=== PATIENT | female | born 1950 | race Caucasian/White ===

== ENCOUNTER 2016-02-24 14:04 | Emergency (ER) | payer MEDICARE, OTHER ==
[2015-10-19 15:05] VITALS: BMI 24.8
[~2016-02-24 14:04] MED LIST: ALBUTEROL2.5 MG/3 M UPD; ASPIRIN81 MG PO; BREO ELLIPTA 11 EACH INH; COREG6.25 MG PO; CRESTOR10 MG PO; FLAGYL500 MG PO; IPRAT-ALBUT 0.5-3 ML UPD; K-DUR20 MEQ PO; KEPPRA250 MG PO; LASIX40 MG PO; MARINOL2.5 MG PO; NICODERM C1 PATCH .3 TRANSDERM; NITROQUICK0.4 MG SL; PAXIL30 MG PO; PLAVIX75 MG PO; PROTONIX I40 MG/VIAL IV; PROTONIX40 MG PO; PROZAC10 MG PO; ULTRAM50 MG PO; XANAX1 MG PO; ZYPREXA5 MG PO
[2016-02-24 14:54] LABS: BASOPHILS 0.3 % (0.0-2.0); EOSINOPHILS 5.2 % (0-7); HEMATOCRIT 39.9 % (36.0-48.0); HEMOGLOBIN 13.2 g/dL (12-16); IMMATURE GRANULOCYTES 0.3 % (0-5); LYMPHOCYTES 17.7 % (15-50); MCH 37.2 pg (26.0-34.0); MCHC 33.1 g/dL (31.0-37.0); MCV 112.4 fL (80.0-100.0); MEAN PLATELET VOLUME 9.6 fL (7.4-10.4); MONOCYTES 8.4 % (2-11); NEUTROPHILS 68.1 % (40-80); PLATELET COUNT 159 10x3/uL (130-400); RBC 3.55 10x6/uL (4.00-5.40); RDW 14.9 % (11.5-14.5); WBC 7.4 10x3/uL (4.8-10.8)
[2016-02-24 15:06] LABS: APPEARANCE CLEAR (CLEAR); BILIRUBIN NEGATIVE (NEGATIVE); COLOR STRAW (YELLOW); GLUCOSE NEGATIVE (NEGATIVE); KETONE NEGATIVE (NEGATIVE); LEUKOCYTE ESTERASE NEGATIVE (NEGATIVE); NITRITE NEGATIVE (NEGATIVE); PROTEIN NEGATIVE (NEGATIVE); UROBILINOGEN NORMAL (NORMAL)
[2016-02-24 15:35] LABS: ALKALINE PHOSPHATASE 101 U/L (46-116); ALT (SGPT) 49 U/L (10-68); BILIRUBIN - TOTAL 0.15 mg/dL (0.2-1.3); CALC OSMOLALITY 288 mosm/kg (275-300); CALCIUM 8.4 mg/dL (8.5-10.1); CARBON DIOXIDE 25.5 mmol/L (21.0-32.0); CHLORIDE - SERUM 112 mmol/L (98-107); CREATININE - SERUM 0.7 mg/dL (0.6-1.3); GLUCOSE 82 mg/dL (74-106); POTASSIUM - SERUM 4.1 mmol/L (3.5-5.1); PROTEIN - SERUM 5.8 g/dL (6.4-8.2); SODIUM 146 mmol/L (136-145); UREA NITROGEN 10 mg/dL (7-18); eGFR NON AFRICAN AMERICAN 89 mL/min (90-120)
[2016-02-24 15:39] LABS: UDS - AMPHET NEGATIVE QUAL (NEGATIVE); UDS - BARB NEGATIVE QUAL (NEGATIVE); UDS - BENZO POSITIVE QUAL (NEGATIVE); UDS - COCAINE NEGATIVE QUAL (NEGATIVE); UDS - METH NEGATIVE QUAL (NEGATIVE); UDS - OPIATE NEGATIVE QUAL (NEGATIVE); UDS - PCP NEGATIVE QUAL (NEGATIVE); UDS - THC POSITIVE QUAL (NEGATIVE)
[2016-02-24 15:45] LABS: CREATINE KINASE 143 UL (21-215); MAGNESIUM - SERUM 2.1 mg/dL (1.8-2.4); PRO BNP 137 pg/mL (0-125)
[2016-02-24 15:46] LABS: TROPONIN-I < 0.017 ng/mL (0.000-0.060)
== END 2016-02-24 17:34 | disposition home or self-care (01) ==
LOC: D.ER 14:04
PROVIDERS: Emergency Medicine; Nurse Practitioner Family
DX: F33.9 Major depressive disorder, recurrent, unspecified (principal); F10.10 Alcohol abuse, uncomplicated; F41.9 Anxiety disorder, unspecified; R53.1 Weakness; F03.90 Unspecified dementia, unspecified severity, without behavioral disturbance, psychotic disturbance, mood disturbance, and anxiety; C56.9 Malignant neoplasm of unspecified ovary; I45.10 Unspecified right bundle-branch block; I44.60 Unspecified fascicular block

== ENCOUNTER 2016-05-02 19:46 | Emergency (ER) | payer MEDICARE, OTHER ==
[2015-10-19 15:05] VITALS: BMI 24.8
[2016-05-02 21:11] LABS: ALBUMIN 3.5 g/dL (3.4-5.0); ALKALINE PHOSPHATASE 191 U/L (46-116); ALT (SGPT) 50 U/L (10-68); AMYLASE - SERUM 17 U/L (25-115); BILIRUBIN - TOTAL 0.28 mg/dL (0.2-1.3); CALC OSMOLALITY 278 mosm/kg (275-300); CALCIUM 8.7 mg/dL (8.5-10.1); CARBON DIOXIDE 22.7 mmol/L (21.0-32.0); CHLORIDE - SERUM 102 mmol/L (98-107); CREATININE - SERUM 0.7 mg/dL (0.6-1.3); GLUCOSE 99 mg/dL (74-106); LIPASE 61 U/L (73-393); POTASSIUM - SERUM 3.7 mmol/L (3.5-5.1); SODIUM 141 mmol/L (136-145); UREA NITROGEN 7 mg/dL (7-18); eGFR NON AFRICAN AMERICAN 89 mL/min (90-120)
[2016-05-02 21:34] LABS: APPEARANCE SLT CLOUDY (CLEAR); BILIRUBIN NEGATIVE (NEGATIVE); COLOR STRAW (YELLOW); GLUCOSE NEGATIVE (NEGATIVE); KETONE NEGATIVE (NEGATIVE); LEUKOCYTE ESTERASE 2+ (NEGATIVE); NITRITE NEGATIVE (NEGATIVE); PROTEIN NEGATIVE (NEGATIVE); UROBILINOGEN NORMAL (NORMAL)
[2016-05-02 21:35] LABS: AMORPHOUS SEDIMENT <1+ /lpf (NONE SEEN); BACTERIA MODERATE /hpf (NONE SEEN); EPITHELIAL CELLS 0-5 /hpf (0-5); MUCUS <1+ /lpf (NONE SEEN); RED CELLS - URINE 0-5 /hpf (0-5)
[2016-05-02 21:37] LABS: UDS - AMPHET NEGATIVE QUAL (NEGATIVE); UDS - BARB NEGATIVE QUAL (NEGATIVE); UDS - BENZO NEGATIVE QUAL (NEGATIVE); UDS - COCAINE NEGATIVE QUAL (NEGATIVE); UDS - METH NEGATIVE QUAL (NEGATIVE); UDS - OPIATE NEGATIVE QUAL (NEGATIVE); UDS - PCP NEGATIVE QUAL (NEGATIVE); UDS - THC POSITIVE QUAL (NEGATIVE)
[2016-05-02 22:12] LABS: BASOPHILS 0.6 % (0.0-2.0); EOSINOPHILS 4.3 % (0-7); HEMATOCRIT 48.8 % (36.0-48.0); HEMOGLOBIN 16.7 g/dL (12-16); IMMATURE GRANULOCYTES 0.1 % (0-5); LYMPHOCYTES 22.1 % (15-50); MCH 37.1 pg (26.0-34.0); MCHC 34.2 g/dL (31.0-37.0); MCV 108.4 fL (80.0-100.0); MEAN PLATELET VOLUME 10.1 fL (7.4-10.4); MONOCYTES 9.4 % (2-11); NEUTROPHILS 63.5 % (40-80); PLATELET COUNT 187 10x3/uL (130-400); RDW 13.7 % (11.5-14.5); WBC 6.7 10x3/uL (4.8-10.8)
== END 2016-05-02 23:38 | disposition home or self-care (01) ==
LOC: D.ER 19:46
PROVIDERS: Family Medicine
DX: N39.0 Urinary tract infection, site not specified (principal); K59.00 Constipation, unspecified; F03.90 Unspecified dementia, unspecified severity, without behavioral disturbance, psychotic disturbance, mood disturbance, and anxiety

== ENCOUNTER 2016-05-26 17:50 | Emergency (ER) | payer MEDICARE, OTHER ==
[2015-10-19 15:05] VITALS: BMI 24.8
[2016-05-26 21:36] LABS: BASOPHILS 0.6 % (0.0-2.0); EOSINOPHILS 4.8 % (0-7); HEMATOCRIT 48.4 % (36.0-48.0); HEMOGLOBIN 16.6 g/dL (12-16); IMMATURE GRANULOCYTES 0.4 % (0-5); LYMPHOCYTES 15.2 % (15-50); MCH 36.9 pg (26.0-34.0); MCHC 34.3 g/dL (31.0-37.0); MCV 107.6 fL (80.0-100.0); MEAN PLATELET VOLUME 10.7 fL (7.4-10.4); MONOCYTES 9.2 % (2-11); NEUTROPHILS 69.8 % (40-80); RDW 13.9 % (11.5-14.5); WBC 6.9 10x3/uL (4.8-10.8)
[2016-05-26 21:37] LABS: PLATELET COUNT 124 10x3/uL (130-400)
[2016-05-26 21:45] LABS: APPEARANCE CLOUDY (CLEAR); BILIRUBIN NEGATIVE (NEGATIVE); COLOR YELLOW (YELLOW); GLUCOSE NEGATIVE (NEGATIVE); KETONE NEGATIVE (NEGATIVE); LEUKOCYTE ESTERASE 1+ (NEGATIVE); NITRITE NEGATIVE (NEGATIVE); PROTEIN NEGATIVE (NEGATIVE); UROBILINOGEN NORMAL (NORMAL)
[2016-05-26 21:47] LABS: ALBUMIN 3.5 g/dL (3.4-5.0); ALKALINE PHOSPHATASE 105 U/L (46-116); ALT (SGPT) 27 U/L (10-68); BILIRUBIN - TOTAL 0.43 mg/dL (0.2-1.3); CALC OSMOLALITY 274 mosm/kg (275-300); CALCIUM 9.8 mg/dL (8.5-10.1); CARBON DIOXIDE 26.6 mmol/L (21.0-32.0); CHLORIDE - SERUM 99 mmol/L (98-107); CREATININE - SERUM 0.8 mg/dL (0.6-1.3); GLUCOSE 103 mg/dL (74-106); LIPASE 139 U/L (73-393); POTASSIUM - SERUM 3.7 mmol/L (3.5-5.1); PROTEIN - SERUM 7.3 g/dL (6.4-8.2); SODIUM 138 mmol/L (136-145); UREA NITROGEN 9 mg/dL (7-18); eGFR NON AFRICAN AMERICAN 76 mL/min (90-120)
[2016-05-26 21:47] LABS: BACTERIA MODERATE /hpf (NONE SEEN); EPITHELIAL CELLS 25-50 /hpf (0-5); MUCUS >1+ /lpf (NONE SEEN); RED CELLS - URINE 0-5 /hpf (0-5); WHITE CELLS - URINE >50 /hpf (0-5)
== END 2016-05-26 22:30 | disposition home or self-care (01) ==
LOC: D.ER 17:50
PROVIDERS: Physician Assistant
DX: R10.9 Unspecified abdominal pain (principal); R11.10 Vomiting, unspecified; Z95.1 Presence of aortocoronary bypass graft; R19.7 Diarrhea, unspecified

== ENCOUNTER → 2016-06-30 13:49 | Outpatient (CLI) | payer MEDICARE, OTHER ==
[2015-10-19 15:05] VITALS: BMI 24.8
== END | disposition home or self-care (01) ==
LOC: D.CT 13:49
DX: R10.84 Generalized abdominal pain (principal)

== ENCOUNTER → 2016-07-28 12:52 | Outpatient (CLI) | payer MEDICARE, OTHER ==
[2015-10-19 15:05] VITALS: BMI 24.8
== END | disposition home or self-care (01) ==
LOC: D.CT 12:52
DX: R91.1 Solitary pulmonary nodule (principal)

== ENCOUNTER 2016-09-01 19:24 | Inpatient (IN) | payer MEDICARE, OTHER ==
[2016-09-01 20:11] LABS: APPEARANCE CLEAR (CLEAR); COLOR STRAW (YELLOW); SPECIFIC GRAVITY 1.005 (1.005-1.020)
[2016-09-01 20:12] LABS: BACTERIA FEW /hpf (NONE SEEN); BILIRUBIN NEGATIVE (NEGATIVE); EPITHELIAL CELLS 0-5 /hpf (0-5); GLUCOSE NEGATIVE (NEGATIVE); KETONE NEGATIVE (NEGATIVE); LEUKOCYTE ESTERASE TRACE (NEGATIVE); NITRITE NEGATIVE (NEGATIVE); PROTEIN NEGATIVE (NEGATIVE); RED CELLS - URINE OCC /hpf (0-5); UDS - AMPHET NEGATIVE QUAL (NEGATIVE); UDS - BARB NEGATIVE QUAL (NEGATIVE); UDS - BENZO NEGATIVE QUAL (NEGATIVE); UDS - COCAINE NEGATIVE QUAL (NEGATIVE); UDS - METH NEGATIVE QUAL (NEGATIVE); UDS - OPIATE NEGATIVE QUAL (NEGATIVE); UDS - PCP NEGATIVE QUAL (NEGATIVE); UDS - THC POSITIVE QUAL (NEGATIVE); UROBILINOGEN NORMAL (NORMAL); WHITE CELLS - URINE 0-5 /hpf (0-5)
[2016-09-01 20:14] LABS: MAGNESIUM - SERUM 1.5 mg/dL (1.8-2.4)
[2016-09-01 20:28] LABS: BASOPHILS 0.5 % (0-2); EOSINOPHILS 2.9 % (0-7); HEMATOCRIT 44.2 % (36.0-48.0); HEMOGLOBIN 15.7 g/dL (12-16); IMMATURE GRANULOCYTES 0.7 % (0-5); LYMPHOCYTES 21.5 % (15-50); MCH 39.9 pg (26.0-34.0); MCHC 35.5 g/dL (31.0-37.0); MCV 112.5 fL (80.0-100.0); MEAN PLATELET VOLUME 9.6 fL (7.4-10.4); NEUTROPHILS 64.4 % (40-80); RBC 3.93 10x6/uL (4.00-5.40); RDW 17.8 % (11.5-14.5); WBC 5.5 10x3/uL (4.8-10.8)
[2016-09-01 20:29] LABS: PLATELET COUNT 165 10x3/uL (130-400)
[2016-09-01 20:41] LABS: ACETAMINOPHEN 2.4 ug/mL (10.0-30.0); ALBUMIN 3.4 g/dL (3.4-5.0); ALKALINE PHOSPHATASE 133 U/L (46-116); ALT (SGPT) 24 U/L (10-68); BILIRUBIN - TOTAL 0.35 mg/dL (0.2-1.3); CALC OSMOLALITY 283 mosm/kg (275-300); CALCIUM 8.7 mg/dL (8.5-10.1); CARBON DIOXIDE 23.2 mmol/L (21.0-32.0); CHLORIDE - SERUM 106 mmol/L (98-107); CREATININE - SERUM 0.7 mg/dL (0.6-1.3); GLUCOSE 112 mg/dL (74-106); POTASSIUM - SERUM 3.9 mmol/L (3.5-5.1); PROTEIN - SERUM 7.3 g/dL (6.4-8.2); SODIUM 143 mmol/L (136-145); UREA NITROGEN 7 mg/dL (7-18); eGFR NON AFRICAN AMERICAN 89 mL/min (90-120)
[2016-09-02 04:07] VITALS: BP 130/90; BMI 24.8
--- NOTE | 2016-09-02 05:43 | NUR ---
PATIENT ARRIVED FROM E.D. VIA WHEELCHAIR, VSS, CODE STATUS FULL CODE, CONSENTS SIGNED, PATIENT ADMITTED FOR S.I., NO PLAN, CONTRACTED FOR SAFETY, PATIENT IS A & O X 4, AMBULATES INDEPENDANTLY, LABS ORDERED.
[2016-09-02] MEDS ORDERED: ULTRAM50 MG PO (07:19)
[2016-09-02 07:57] LABS: BASOPHILS 0.5 % (0-2); HEMATOCRIT 41.7 % (36.0-48.0); HEMOGLOBIN 14.7 g/dL (12-16); IMMATURE GRANULOCYTES 0.2 % (0-5); LYMPHOCYTES 15.8 % (15-50); MCH 39.7 pg (26.0-34.0); MCHC 35.3 g/dL (31.0-37.0); MCV 112.7 fL (80.0-100.0); MEAN PLATELET VOLUME 9.6 fL (7.4-10.4); MONOCYTES 9.9 % (2-11); NEUTROPHILS 71.6 % (40-80); PLATELET COUNT 168 10x3/uL (130-400); RDW 17.9 % (11.5-14.5); WBC 6.5 10x3/uL (4.8-10.8)
[2016-09-02 08:09] LABS: HEMOGLOBIN A1C 5.2 % (4.8-6.0)
[2016-09-02 08:19] LABS: ALBUMIN 3.2 g/dL (3.4-5.0); ALKALINE PHOSPHATASE 123 U/L (46-116); ALT (SGPT) 22 U/L (10-68); BILIRUBIN - TOTAL 0.57 mg/dL (0.2-1.3); CALC OSMOLALITY 278 mosm/kg (275-300); CALCIUM 8.7 mg/dL (8.5-10.1); CARBON DIOXIDE 26.5 mmol/L (21.0-32.0); CHLORIDE - SERUM 105 mmol/L (98-107); CHOL - HDL RATIO 3.7 ratio (2.3-4.1); CHOLESTEROL, TOTAL 273 mg/dL (0-200); GLUCOSE 90 mg/dL (74-106); HDL CHOLESTEROL 73 mg/dL (32-96); LDL CHOLESTEROL 181 mg/dL (0-100); LDL-HDL RATIO 2.5 ratio (1.5-3.5); POTASSIUM - SERUM 4.3 mmol/L (3.5-5.1); PROTEIN - SERUM 6.4 g/dL (6.4-8.2); SODIUM 141 mmol/L (136-145); TRIGLYCERIDE 97 mg/dL (30-200); UREA NITROGEN 8 mg/dL (7-18)
[2016-09-02 08:20] LABS: CREATININE - SERUM 0.5 mg/dL (0.6-1.3); eGFR NON AFRICAN AMERICAN > 90 mL/min (90-120)
[2016-09-02 09:07] VITALS: BP 124/86
--- NOTE | 2016-09-02 11:06 | NUR ---
B) PATIENT IS AWAKE AND ALERT, SHE IS CALM, SHE HAS NOT MADE ANY MENTION OF BEING DEPRESSED OR SUICIDAL, SHE IS INTERACTING WITH STAFF AND PEERS, SHE IS JOKING AND SMILING. PATIENT AMBULATES INDEPENDENTLY. I) PROVIDE PRESCRIBED MEDS. R) PATIENT IS COMPLIANT WITH MEDS AND UNIT [facility]. P) CONTINUE POC.
[2016-09-02 19:30] VITALS: BP 113/71
--- NOTE | 2016-09-03 01:05 | NUR ---
B) Recieved patient in her room, alert and oriented X 3, calm and cooperative, no S.I. or depressin noted, I) Administered perscribed medications, monitored for safety, R) Medication compliant, friendly and pleasant, P) Continue plan of care.
[2016-09-03 06:13] LABS: RAPID PLASMA REAGIN Non Reactive (Non Reactive)
[2016-09-03 08:11] VITALS: BP 139/64
[2016-09-03 08:15] LABS: FOLATE (FOLIC ACID) - SERUM 5.6 ng/mL (>3.0)
--- NOTE | 2016-09-03 10:09 | NUR ---
OBTAINED URINE FOR UA AND C&S.
[2016-09-03 10:19] LABS: APPEARANCE HAZY (CLEAR); BILIRUBIN NEGATIVE (NEGATIVE); COLOR YELLOW (YELLOW); GLUCOSE NEGATIVE (NEGATIVE); KETONE NEGATIVE (NEGATIVE); LEUKOCYTE ESTERASE TRACE (NEGATIVE); NITRITE NEGATIVE (NEGATIVE); PH 5.5 (5.0-6.0); PROTEIN NEGATIVE (NEGATIVE); SPECIFIC GRAVITY 1.005 (1.005-1.020); UROBILINOGEN NORMAL (NORMAL)
[2016-09-03 10:25] LABS: BACTERIA FEW /hpf (NONE SEEN); EPITHELIAL CELLS 0-5 /hpf (0-5); RED CELLS - URINE 0-5 /hpf (0-5); WHITE CELLS - URINE 0-5 /hpf (0-5)
[2016-09-03 12:04] VITALS: Wt 63.5 kg
--- NOTE | 2016-09-03 14:59 | NUR ---
B) PATIENT IS AWAKE AND ALERT, ORIENTED X3, SHE IS ABLE TO AMBULATE. SHE DENIES DEPRESSION, DENIES S.I. SHE IS CALM, COOPERATIVE, SHE SAYS SHE IS HERE BECAUSE HER SAID SHE NEEDED TO STOP DRINKING AND GET HELP. SHE SAYS SHE REALIZES SHE NEEDS HELP. I) PROVIDE PRESCRIBED MEDS. R) PATIENT IS COMPLIANT WITH MEDS AND UNIT MILIEU. P) CONT. POC.
[2016-09-03 19:30] VITALS: BP 136/82
--- NOTE | 2016-09-03 19:46 | NUR ---
RECEIVED IN BEDROOM. ALERT AND ORIENTED. SITTING IN QUIETLY IN CHAIR. CALM AND COOPERATIVE WITH CARE AND ASSESSMENTS. DENIES THOUGHTS OF SELF HARM. SITTING IN HALLWAY AT THIS TIME. CONTINUE PLAN OF CARE
[2016-09-04 07:00] VITALS: BP 144/87
--- NOTE | 2016-09-04 18:15 | NUR ---
B) SPOKE TO PATIENT TO ASK HER IF SHE KNOWS WHERE SHE IS LOCATED AND THE YEAR, PATIENT WAS ABLE TO LET ME KNOW. SHE KNOWS SHE IS HERE FOR HER ALCOHOLISM. PATIENT DID MENTION THAT SHE FELT LIKE SHE MAY HAVE SOME DEMENTIA ALSO AND STATES "MAYBE IT IS MORE THAN I REALIZE" ASKED HER IF SHE HAS BEEN DIAGNOSED IN THE PAST WITH DEMENTIA. SHE DENIES. SHE DENIES DEPRESSION, DENIES S.I. I) PROVIDE PRESCRIBED MEDS. R) PATIENT IS COMPLIANT WITH MEDS. PATIENTS SPOUSE REQUESTS TO SPEAK TO THE PSYCHIATRIST, REDIRECTED HIM TO THE OXYHYDROGEN WELDER, DID LEAVE MEENA TEJEDA A MESSAGE TO PLEASE CALL HIM. P) CONTINUE POC.
[2016-09-04 19:30] VITALS: BP 110/89
--- NOTE | 2016-09-04 20:13 | NUR ---
RECEIVED IN HALLWAY. ALERT AND ORIENTED. IN GOOD SPIRITS. CALM AND COOPERATIVE WITH CARE AND ASSESSMENTS. DENIES THOUGHTS OF SELF HARM. ENCOURAGE TO EXPRESS NEEDS. CONTINUE PLAN OF CARE
[2016-09-05 07:00] VITALS: BP 129/90
[2016-09-05] MEDS ORDERED: PAXIL20 MG PO (09:12)
[2016-09-05] MEDS ORDERED: FOLIC ACID1 MG PO (09:13)
[2016-09-05] MEDS ORDERED: THIAMINE HCL50 MG PO (09:13)
--- NOTE | 2016-09-05 09:52 | NUR ---
SW SPOKE WITH PT ABOUT DISCHARGE PLANNING. PT STATED SHE DOES NOT WANT AA, RESIDENTIAL TREATMENT, OR OUTPATIENT THERAPY. SW SET PT UP WITH OUTPATIENT DEMENTIA TESTING WITH . SW ALSO CALLED TO SPEAK WITH PT'S ABOUT DISCHARGE PLANNING, HOWEVER, HAD TO LEAVE VM. PT VERBALIZED UNDERSTANDING OF DISCHARGE PLANS.
[2016-09-05 10:11] LABS: VITAMIN D 25 HYDROXY 5.8 ng/mL (30.0-100.0)
--- NOTE | 2016-09-05 12:16 | NUR ---
B) AWAKEAND ALERT THIS AM, SITTING IN CHAIR AT NURSES DESK. ORIENTED X 4. CALM AND COOPERATIVE WITH ASSESSMENT. DENIES SELF HARM. I) ADMINISTERED PRESCRIBED MEDICATIONS. VSS. R) COMPLIANT WITH TAKING MEDICATIONS. MONITOR FOR SAFETY. P) ENID BALTAZAR PLAN OFCARE.
--- NOTE | 2016-09-05 13:12 | NUR ---
DISCHARGE INSTRUCTIONS REVIEWED WITH PATIENT AND RE: APPOINTMENTS, MEDICATIONS TO TAKE NOW AND SENT IN TO [facility]. RETURNED TO [place], BELONGINGS AND MEDICATIONS FROM PHARMACY. ASSISTED TO PRIVATE CAR WITH STAFF MEMBER. INFORMED TO CALL DR. CASTANEDA OFFICE WITH QUESTIONS ABOUT MEDICATIONS.
--- NOTE | 2016-09-06 13:54 | PN ---
PATIENT:EDWARD MURILLO MEDICAL RECORD: [id number] LOCATION:[facility] ADMISSION DATE: 09/02/16 PROGRESS NOTE DATE OF SERVICE: 09/05/2016 SUBJECTIVE: The patient's case was discussed with staff. She has no new complaint. OBJECTIVE: The patient says she is feeling much better. She is fully oriented to person, place, time and situation. She denies that she would seek to harm herself. She has denied this since admission. She now also is confessing that she was actually drinking more heavily than she originally lead us to believe. ASSESSMENT: No change in diagnoses. PLAN: The patient has requested discharge and will be transitioned out of the hospital this afternoon. Followup is going to be with Dr. Sally Coffey for neuropsychological testing. I have recommended that she attend AA meetings, but she refuses. She says she will see an individual counselor and I am going to refer her to a therapist. She is going to be followed on an outpatient basis by her primary care physician and I have also recommended outpatient psychiatric followup, which she has indicated that she does not think that she needs. She certainly is in need of quite a bit of additional care and I think her likelihood of relapse with regard to drinking is significant. If she does drink, she is likely to have additional mood or behavior problems, some of which could be serious. I have instructed her not to drink. She says that she is not going to, but I am concerned because she does not want to go to Alcoholics Anonymous or any other sort of self-help program other than seen in individual therapist. TRANSINT:[id number] Voice Confirmation ID: [id number] DOCUMENT ID: [id number] ROSARIO WALSH MD at 1354 CC: [id number] DICTATION DATE: 09/05/16 0916 MARKET MASTER: 09/05/16 0957 DIS IN 09/05/16 [place] [id number] [place] [id number]
== END 2016-09-05 13:15 | disposition home or self-care (01) | DRG 885 ==
LOC: D.ER 19:24 → D.PSYCH 09-02 03:16
PROVIDERS: Emergency Medicine; Psychiatry & Neurology Psychiatry; ADMIT Psychiatry & Neurology Psychiatry
DX: F32.1 Major depressive disorder, single episode, moderate (principal); F17.203 Nicotine dependence unspecified, with withdrawal; F41.9 Anxiety disorder, unspecified; I10 Essential (primary) hypertension; E78.5 Hyperlipidemia, unspecified; I25.10 Atherosclerotic heart disease of native coronary artery without angina pectoris; F10.129 Alcohol abuse with intoxication, unspecified; Y90.6 Blood alcohol level of 120-199 mg/100 ml; J44.9 Chronic obstructive pulmonary disease, unspecified; Z95.1 Presence of aortocoronary bypass graft; Z86.73 Personal history of transient ischemic attack (TIA), and cerebral infarction without residual deficits

== ENCOUNTER 2016-11-02 19:58 | Inpatient (IN) | payer MEDICARE, OTHER ==
[~2016-11-02] VITALS: Ht 160 cm; Wt 60.9 kg
[2016-11-02 05:00] VITALS: BP 133/88
[~2016-11-02 19:58] MED LIST changes: +FOLIC ACID1 MG PO; +PAXIL20 MG PO; +THIAMINE HCL50 MG PO
[2016-11-02 20:54] LABS: BASOPHILS 0.5 % (0-2); EOSINOPHILS 4.1 % (0-7); HEMATOCRIT 42.2 % (36.0-48.0); HEMOGLOBIN 14.5 g/dL (12-16); IMMATURE GRANULOCYTES 0.2 % (0-5); LYMPHOCYTES 25.8 % (15-50); MCH 36.6 pg (26.0-34.0); MCHC 34.4 g/dL (31.0-37.0); MCV 106.6 fL (80.0-100.0); MEAN PLATELET VOLUME 9.9 fL (7.4-10.4); MONOCYTES 7.5 % (2-11); NEUTROPHILS 61.9 % (40-80); PLATELET COUNT 180 10x3/uL (130-400); RBC 3.96 10x6/uL (4.00-5.40); RDW 15.5 % (11.5-14.5); WBC 5.6 10x3/uL (4.8-10.8)
[2016-11-02 21:13] LABS: ALBUMIN 2.9 g/dL (3.4-5.0); ANION GAP 20.2 mmol/L (8-16); BILIRUBIN - TOTAL 0.14 mg/dL (0.2-1.3); CALCIUM 9.1 mg/dL (8.5-10.1); CARBON DIOXIDE 18.8 mmol/L (21.0-32.0); CREATININE - SERUM 0.9 mg/dL (0.6-1.3); PROTEIN - SERUM 6.3 g/dL (6.4-8.2)
[2016-11-02 22:26] LABS: CREATINE KINASE 56 UL (21-215); PRO BNP 113 pg/mL (0-125)
[2016-11-02 22:31] LABS: INR 0.86 (0.85-1.17); PROTIME 11.6 SECONDS (11.6-15.0); TROPONIN-I < 0.017 ng/mL (0.000-0.060)
[2016-11-02 23:18] LABS: APPEARANCE CLEAR (CLEAR); BILIRUBIN NEGATIVE (NEGATIVE); COLOR STRAW (YELLOW); GLUCOSE NEGATIVE (NEGATIVE); KETONE NEGATIVE (NEGATIVE); LEUKOCYTE ESTERASE NEGATIVE (NEGATIVE); NITRITE NEGATIVE (NEGATIVE); PROTEIN NEGATIVE (NEGATIVE); SPECIFIC GRAVITY 1.005 (1.005-1.020); UROBILINOGEN NORMAL (NORMAL)
[2016-11-03] VITALS: BP 135/92
[2016-11-03 04:04] VITALS: BP 135/92; Ht 160 cm; Wt 60.9 kg
--- NOTE | 2016-11-03 07:35 | NUR ---
PATIENT RESTING QUIETLY ON HER RIGHT SIDE. EYES ARE CLOSED. NO S/S OF DISTRESS NOTED. CALL LIGHT IN PATIENT'S REACH. WILL MONITOR PATIENT.
[2016-11-03 08:21] VITALS: BP 127/86
[2016-11-03 10:57] LABS: BASOPHILS 0.2 % (0-2); EOSINOPHILS 5.7 % (0-7); HEMATOCRIT 38.8 % (36.0-48.0); HEMOGLOBIN 13.1 g/dL (12-16); IMMATURE GRANULOCYTES 0.2 % (0-5); MCH 36.4 pg (26.0-34.0); MCHC 33.8 g/dL (31.0-37.0); MCV 107.8 fL (80.0-100.0); MEAN PLATELET VOLUME 9.9 fL (7.4-10.4); MONOCYTES 7.5 % (2-11); NEUTROPHILS 71.4 % (40-80); PLATELET COUNT 144 10x3/uL (130-400); RDW 15.6 % (11.5-14.5); WBC 4.5 10x3/uL (4.8-10.8)
[2016-11-03 11:24] LABS: ALBUMIN 2.3 g/dL (3.4-5.0); ANION GAP 13.2 mmol/L (8-16); BILIRUBIN - TOTAL 0.28 mg/dL (0.2-1.3); CARBON DIOXIDE 24.4 mmol/L (21.0-32.0); CREATININE - SERUM 0.9 mg/dL (0.6-1.3); POTASSIUM - SERUM 3.6 mmol/L (3.5-5.1); PROTEIN - SERUM 5.1 g/dL (6.4-8.2)
[2016-11-03 12:17] VITALS: BP 108/64
--- NOTE | 2016-11-03 13:22 | NUR ---
PATIENT SITTING UP IN HER BED AND WATCHING T.V. PATIENT STATES SHE IS STILL IN PAIN AND RATES HER PAIN LEVEL A "7" ON A 0-10 SCALE. PATIENT STATES HER PAIN IS IN HER BACK AREA. PRN HYDROCODONE GIVEN EARLIER AT 1211. CALL LIGHT IN PATIENT'S REACH. WILL CONTINUE TO MONITOR PATIENT.
--- NOTE | 2016-11-03 14:03 | NUR ---
SCD'S PLACED ON PATIENT'S BILATERAL LOWER EXTREMITIES PER PHYSICIAN'S ORDERS.
--- NOTE | 2016-11-03 15:00 | NUR ---
PATIENT TRANSFERRED VIA WHEELCHAIR TO RADIOLOGY FOR AN XRAY OF LUMBAR SPINE.
[2016-11-03 16:02] VITALS: BP 101/57
--- NOTE | 2016-11-03 17:43 | NUR ---
PATIENT RESTING IN HER BED. PATIENT EATING HER DINNER TRAY. DENIES ANY NEEDS AT PRESENT TIME. CALL LIGHT IN PATIENT'S REACH. WILL MONITOR PATIENT.
--- NOTE | 2016-11-03 19:00 | NUR ---
REPORT RECEIVED AND CARE OF PT ASSUMED. PT LYING IN SUPINE POSITION WITH EYES CLOSED. IV IN RIGHT WRIST PATENT WITH LR INFUSING AT 100 ML / HR. IV IN RIGHT HAND OCCLUDED...REMOVED WITH CATHETER TIP INTACT. RE-STARTED NS AT 50 IN RIGHT WRIST. LIZAMA CATHETER DRAINING TO GRAVITY WITH YELLOW URINE IN COLLECTION BAG. WILL MONITOR CLOSELY FOR NEEDS.
[2016-11-03 20:00] VITALS: BP 105/72
--- NOTE | 2016-11-03 21:42 | NUR ---
HS MEDICATIONS GIVEN TO INCLUDE NORCO PER REQUEST FOR PAIN. WILL CONTINUE TO MONIOR FOR NEEDS.
[2016-11-04] VITALS: BP 132/82
[2016-11-04 04:00] VITALS: BP 133/69
[2016-11-04 05:51] LABS: BASOPHILS 0.6 % (0-2); EOSINOPHILS 7.7 % (0-7); HEMATOCRIT 37.4 % (36.0-48.0); HEMOGLOBIN 12.8 g/dL (12-16); LYMPHOCYTES 23.1 % (15-50); MCH 36.7 pg (26.0-34.0); MCHC 34.2 g/dL (31.0-37.0); MCV 107.2 fL (80.0-100.0); MEAN PLATELET VOLUME 10.2 fL (7.4-10.4); NEUTROPHILS 60.6 % (40-80); PLATELET COUNT 132 10x3/uL (130-400); RBC 3.49 10x6/uL (4.00-5.40); RDW 15.3 % (11.5-14.5); WBC 3.4 10x3/uL (4.8-10.8)
[2016-11-04 06:09] LABS: ALBUMIN 2.1 g/dL (3.4-5.0); ALKALINE PHOSPHATASE 92 U/L (46-116); ALT (SGPT) 12 U/L (10-68); BILIRUBIN - TOTAL 0.18 mg/dL (0.2-1.3); CALC OSMOLALITY 278 mosm/kg (275-300); CALCIUM 7.9 mg/dL (8.5-10.1); CARBON DIOXIDE 25.5 mmol/L (21.0-32.0); CHLORIDE - SERUM 109 mmol/L (98-107); CREATININE - SERUM 0.7 mg/dL (0.6-1.3); GLUCOSE 87 mg/dL (74-106); POTASSIUM - SERUM 3.2 mmol/L (3.5-5.1); PROTEIN - SERUM 4.8 g/dL (6.4-8.2); SODIUM 141 mmol/L (136-145); UREA NITROGEN 11 mg/dL (7-18); eGFR NON AFRICAN AMERICAN 89 mL/min (90-120)
[2016-11-04 08:32] VITALS: BP 123/91
[2016-11-04 12:12] VITALS: BP 131/74
[2016-11-04] MEDS ORDERED: COREG6.25 MG PO ×2 (12:27→14:23)
--- NOTE | 2016-11-04 14:29 | NUR ---
SPOKE WITH ROSAURA/INSPECTOR AND TESTER WITH [facility] VIA PHONE TO ADVISE NOT TO GIVE PT THE ESCRIBED PRESCRIPTION FOR COREG 6.25MG AND A NEW PRESCRIPTION FOR COREG 3.125 DAILY IS BEING ESCRIBED. VERBAL ACKNOWLEDGEMENT RETURNED
--- NOTE | 2016-11-04 15:34 | NUR ---
PT VOIDED 300ML AT THIS TIME IV DISCONTINUED WITH CATHETER INTACT AT THIS TIME PT GIVEN DISCHARGE INSTRUCTIONS AND TOLD OF ONE PRESCRIPTIONS AT [facility] FOR PICKUP PT TAKEN VIA WHEELCHAIR VIA PRIVATE VEHICLE AT THIS TIME
== END 2016-11-04 15:37 | disposition home or self-care (01) | DRG 316 ==
LOC: D.ER 19:58 → OBSVTIME 22:07 → D.MS 22:07
PROVIDERS: Emergency Medicine; Nurse Practitioner Family; ADMIT Family Medicine
DX: I95.9 Hypotension, unspecified (principal); R11.2 Nausea with vomiting, unspecified; R79.89 Other specified abnormal findings of blood chemistry; F03.90 Unspecified dementia, unspecified severity, without behavioral disturbance, psychotic disturbance, mood disturbance, and anxiety; Z95.1 Presence of aortocoronary bypass graft; F31.9 Bipolar disorder, unspecified; F17.200 Nicotine dependence, unspecified, uncomplicated; Z86.73 Personal history of transient ischemic attack (TIA), and cerebral infarction without residual deficits

== ENCOUNTER 2017-07-09 12:32 | Emergency (ER) | payer MEDICARE, OTHER ==
[2016-11-03 04:04] VITALS: BMI 23.7
[2017-07-09 12:58] LABS: BASOPHILS 0.3 % (0-2); EOSINOPHILS 2.2 % (0-7); HEMATOCRIT 43.4 % (36.0-48.0); IMMATURE GRANULOCYTES 0.1 % (0-5); LYMPHOCYTES 9.1 % (15-50); MCH 39.4 pg (26.0-34.0); MCHC 34.6 g/dL (31.0-37.0); MCV 113.9 fL (80.0-100.0); MEAN PLATELET VOLUME 9.6 fL (7.4-10.4); MONOCYTES 7.7 % (2-11); NEUTROPHILS 80.6 % (40-80); RBC 3.81 10x6/uL (4.00-5.40); RDW 15.9 % (11.5-14.5); WBC 7.9 10x3/uL (4.8-10.8)
[2017-07-09 12:59] LABS: PLATELET COUNT 164 10x3/uL (130-400)
[2017-07-09 13:12] LABS: ALBUMIN 2.7 g/dL (3.4-5.0); ALKALINE PHOSPHATASE 170 U/L (46-116); ALT (SGPT) 44 U/L (10-68); AMYLASE - SERUM 19 U/L (25-115); BILIRUBIN - TOTAL 0.65 mg/dL (0.2-1.3); CALC OSMOLALITY 278 mosm/kg (275-300); CALCIUM 8.9 mg/dL (8.5-10.1); CHLORIDE - SERUM 105 mmol/L (98-107); CREATININE - SERUM 0.7 mg/dL (0.6-1.3); GLUCOSE 106 mg/dL (74-106); LIPASE 68 U/L (73-393); POTASSIUM - SERUM 3.7 mmol/L (3.5-5.1); PROTEIN - SERUM 6.1 g/dL (6.4-8.2); SODIUM 139 mmol/L (136-145); UREA NITROGEN 15 mg/dL (7-18); eGFR NON AFRICAN AMERICAN 89 mL/min (90-120)
[2017-07-09 14:05] LABS: APPEARANCE HAZY (CLEAR); BILIRUBIN NEGATIVE (NEGATIVE); COLOR DK YELLOW (YELLOW); GLUCOSE NEGATIVE (NEGATIVE); KETONE NEGATIVE (NEGATIVE); NITRITE NEGATIVE (NEGATIVE); PROTEIN NEGATIVE (NEGATIVE); UROBILINOGEN NORMAL (NORMAL)
== END 2017-07-09 18:28 | disposition home or self-care (01) ==
LOC: D.ER 12:32
PROVIDERS: Emergency Medicine
DX: K58.9 Irritable bowel syndrome, unspecified (principal); K59.00 Constipation, unspecified

== ENCOUNTER 2017-09-23 11:27 | Emergency (ER) | payer MEDICARE, OTHER ==
[~2017-09-23] VITALS: Ht 160 cm; Wt 61.8 kg
[2017-09-23 11:30] VITALS: Ht 160 cm; Wt 61.8 kg
[2017-09-23] MEDS ORDERED: KLONOPIN1 MG PO (11:33)
[2017-09-23] MEDS ORDERED: MELATONIN5 MG PO (11:34)
[2017-09-23] MEDS ORDERED: FUROSEMIDE20 MG PO (11:34)
[2017-09-23] MEDS ORDERED: NAMENDA10 MG PO (11:35)
[2017-09-23] MEDS ORDERED: ZOFRAN ODT4 MG/UDTAB PO (11:36)
[2017-09-23] MEDS ORDERED: CRESTOR40 MG PO (11:37)
[2017-09-23] MEDS ORDERED: KLOR-CON 1010 MEQ PO (11:38)
[2017-09-23] MEDS ORDERED: NAMZARIC 7 MG-1 EACH PO (11:42)
[2017-09-23] MEDS ORDERED: SEROQUEL50 MG PO (11:42)
[2017-09-23] MEDS ORDERED: KEPPRA250 MG PO (11:42)
[2017-09-23 12:44] LABS: BASOPHILS 0.2 % (0-2); EOSINOPHILS 0.4 % (0-7); HEMATOCRIT 39.5 % (36.0-48.0); HEMOGLOBIN 14.2 g/dL (12-16); IMMATURE GRANULOCYTES 0.2 % (0-5); LYMPHOCYTES 9.7 % (15-50); MCH 40.7 pg (26.0-34.0); MCHC 35.9 g/dL (31.0-37.0); MCV 113.2 fL (80.0-100.0); MEAN PLATELET VOLUME 9.7 fL (7.4-10.4); MONOCYTES 9.7 % (2-11); NEUTROPHILS 79.8 % (40-80); PLATELET COUNT 181 10x3/uL (130-400); RBC 3.49 10x6/uL (4.00-5.40); RDW 15.3 % (11.5-14.5); WBC 8.4 10x3/uL (4.8-10.8)
[2017-09-23 12:59] LABS: ALBUMIN 2.6 g/dL (3.4-5.0); ALKALINE PHOSPHATASE 204 U/L (46-116); ALT (SGPT) 104 U/L (10-68); BILIRUBIN - TOTAL 0.58 mg/dL (0.2-1.3); CALC OSMOLALITY 271 mosm/kg (275-300); CALCIUM 8.1 mg/dL (8.5-10.1); CARBON DIOXIDE 30.8 mmol/L (21.0-32.0); CHLORIDE - SERUM 101 mmol/L (98-107); CREATININE - SERUM 0.6 mg/dL (0.6-1.3); GLUCOSE 103 mg/dL (74-106); POTASSIUM - SERUM 3.8 mmol/L (3.5-5.1); SODIUM 137 mmol/L (136-145); UREA NITROGEN 8 mg/dL (7-18); eGFR NON AFRICAN AMERICAN > 90 mL/min (90-120)
[2017-09-23] MEDS ORDERED: HYDROCODON-ACE1 EAC7 PO (16:07)
[2017-09-23 17:27] VITALS: BP 114/76
== END 2017-09-23 17:30 | disposition home or self-care (01) ==
LOC: D.ER 11:27
PROVIDERS: Family Medicine
DX: S42.302A Unspecified fracture of shaft of humerus, left arm, initial encounter for closed fracture (principal); W01.0XXA Fall on same level from slipping, tripping and stumbling without subsequent striking against object, initial encounter; Y93.89 Activity, other specified; Y92.019 Unspecified place in single-family (private) house as the place of occurrence of the external cause; S43.005A Unspecified dislocation of left shoulder joint, initial encounter; Z86.73 Personal history of transient ischemic attack (TIA), and cerebral infarction without residual deficits; I10 Essential (primary) hypertension

== ENCOUNTER 2017-09-26 12:00 | Day surgery (SDC) | payer MEDICARE, OTHER ==
[~2017-09-26] VITALS: Ht 165.1 cm; Wt 63.5 kg
--- NOTE | ~2017-09-26 | OP ---
PATIENT NAME: EDWARD MURILLO MEDICAL RECORD: [id number] :52 LOCATION:[id number] ADMISSION DATE: SURGEON: DALE ZHENG MD DATE OF OPERATION: 09/27/2017 PREOPERATIVE DIAGNOSIS: Fracture dislocation of the left shoulder. POSTOPERATIVE DIAGNOSIS: Fracture dislocation of the left shoulder. PROCEDURES: 1. Open reduction internal fixation of fracture dislocation of the left shoulder. 2. Rotator cuff repair of the left shoulder. SURGEON: Dale Zheng MD ANESTHESIA: General. INTRAOPERATIVE COMPLICATIONS: Essentially none. SUMMARY OF PATHOLOGIC FINDINGS: The patient's greater tuberosity had indeed avulsed and retracted about assisted across the humeral head. At the time of surgery, the patient had recurrently dislocated after being relocated in the ER and was locked inferiorly on the glenoid requiring true open reduction to get it back into place. OPERATIVE SUMMARY IN DETAIL: After obtaining the appropriate preoperative orthopedic surgery consent as well as anesthetic consultation, evaluation and clearance, the patient was brought to the operating room and placed on the operating table in supine position. After general laryngeal mask airway was administered, the patient was placed in the beach chair position. All pressure points were well padded. She was held firmly to the operating table using the vacuum pack suction system. Left upper extremity and shoulder were then prepped and draped in a routine sterile fashion. Several attempts at closed reduction were performed; however, they were unsuccessful. Incisions were made in the anterior lateral aspect, taken down through the deltoid fascia, superficial and deep. A cuff of periosteum was retained for reapproximation of the deltoid to the acromion. The acromion was a type 3. Formal acromioplasty was performed. At this point, serial and sequential rotator cuff mobilization was performed with #2 Ethibond. The greater tuberosity was mobilized enough to go back into its fracture insertion. At this point, 2 medial row 4.75 anchors were placed from the Arthrex SpeedBridge kit. The tails were then passed medial to the greater tuberosity fragment. Upon trying to attempt lateral and inferior fixation, the patient's bone was not receptive to the posterior inferior SwiveLock. For this reason, drill holes were made into the diaphyseal component. Two of the FiberTapes were then passed through the diaphyseal component and tied over a biceps button on the posterior lateral cortex. This resulted in bringing the bone and the rotator cuff down into the defect with an excellent reduction. The anterior 2 tails were then tied into a 4.75 SwiveLock, which was nicely seated into the lesser tuberosity somewhat more superior and anterior. Having completed this, the biceps was attempted to be tenodesed in the bicipital groove. Once again, the tenodesis screw failed in the very soft bone. For this reason, the biceps was then tenodesed essentially to the lateral edge of the rotator cuff that was somewhat prominent. This was done with #2 FiberWire. This resulted in an excellent repair of the rotator cuff and in full OPERATIVE REPORT [id number] EDWARD MURILLO range of motion, the shoulder did not dislocate again. At this point, the wound was copiously irrigated. The deltoid was then reapproximated to the acromion with #2 Ethibond imbricating this. Deep deltoid fascia was tied with #2 Ethibond. This was followed by #1 Vicryl, 2-0 Vicryl and skin luisa for final closure. Please note all of the above was done under fluoroscopic guidance. At the end of the case, the patient was placed in a regular sling with a super Hernan bandage around her waist to hold it in place. It is of note this patient has significant dementia and keeping her still in the postoperative period is going to be difficult. Estimated blood loss was approximately 100 cc. All final needle and sponge counts were correct. TRANSINT:[id number] Voice Confirmation ID: [id number] DOCUMENT ID: [id number] DALE ZHENG MD at 1005 CC: [id number] DICTATION DATE: 09/27/17 0934 SUPERVISOR CURING ROOM: 09/27/17 1040 [facility] [address] [place] [address]
[~2017-09-26 12:00] MED LIST changes: +CRESTOR40 MG PO; +FUROSEMIDE20 MG PO; +HYDROCODON-ACE1 EAC7 PO; +KLONOPIN1 MG PO; +KLOR-CON 1010 MEQ PO; +MELATONIN5 MG PO; +NAMENDA10 MG PO; +NAMZARIC 7 MG-1 EACH PO; +SEROQUEL50 MG PO; +ZOFRAN ODT4 MG/UDTAB PO
[2017-09-26 12:50] LABS: BASOPHILS 0.2 % (0-2); HEMATOCRIT 40.7 % (36.0-48.0); HEMOGLOBIN 14.4 g/dL (12-16); IMMATURE GRANULOCYTES 0.2 % (0-5); LYMPHOCYTES 5.4 % (15-50); MCH 40.7 pg (26.0-34.0); MCHC 35.4 g/dL (31.0-37.0); MEAN PLATELET VOLUME 9.9 fL (7.4-10.4); NEUTROPHILS 86.2 % (40-80); RBC 3.54 10x6/uL (4.00-5.40); RDW 15.2 % (11.5-14.5); WBC 9.8 10x3/uL (4.8-10.8)
[2017-09-26 12:58] LABS: APTT 30.8 SECONDS (22.8-39.4); CALC OSMOLALITY 278 mosm/kg (275-300); CALCIUM 8.7 mg/dL (8.5-10.1); CARBON DIOXIDE 30.1 mmol/L (21.0-32.0); CHLORIDE - SERUM 103 mmol/L (98-107); CREATININE - SERUM 0.8 mg/dL (0.6-1.3); GLUCOSE 129 mg/dL (74-106); INR 0.84 (0.85-1.17); POTASSIUM - SERUM 3.2 mmol/L (3.5-5.1); PROTIME 11.1 SECONDS (11.6-15.0); SODIUM 140 mmol/L (136-145); UREA NITROGEN 8 mg/dL (7-18); eGFR NON AFRICAN AMERICAN 76 mL/min (90-120)
[2017-09-26 13:16] LABS: PLATELET COUNT 218 10x3/uL (130-400)
[2017-09-26 14:20] VITALS: BP 121/79; BMI 23.3
[2017-09-26 14:50] LABS: APPEARANCE HAZY (CLEAR); BILIRUBIN NEGATIVE (NEGATIVE); COLOR YELLOW (YELLOW); GLUCOSE NEGATIVE (NEGATIVE); KETONE NEGATIVE (NEGATIVE); NITRITE NEGATIVE (NEGATIVE); PROTEIN NEGATIVE (NEGATIVE); SPECIFIC GRAVITY 1.015 (1.005-1.020)
[2017-09-26 14:51] LABS: BACTERIA MANY /hpf (NONE SEEN); EPITHELIAL CELLS 0-5 /hpf (0-5); RED CELLS - URINE 0-5 /hpf (0-5); WHITE CELLS - URINE 0-5 /hpf (0-5)
[2017-09-26 14:52] LABS: MUCUS <1+ /lpf (NONE SEEN)
[2017-09-26 21:36] VITALS: BP 120/73
[2017-09-27] VITALS (11 sets, daily range): BP systolic 102–148; BP diastolic 65–100; Ht 165.1 cm; Wt 63.5 kg
[2017-09-27 13:05] LABS: BASOPHILS 0.2 % (0-2); EOSINOPHILS 0.6 % (0-7); HEMATOCRIT 38.2 % (36.0-48.0); HEMOGLOBIN 13.1 g/dL (12-16); IMMATURE GRANULOCYTES 0.2 % (0-5); MCH 39.9 pg (26.0-34.0); MCHC 34.3 g/dL (31.0-37.0); MCV 116.5 fL (80.0-100.0); MEAN PLATELET VOLUME 9.9 fL (7.4-10.4); MONOCYTES 3.3 % (2-11); NEUTROPHILS 92.7 % (40-80); PLATELET COUNT 213 10x3/uL (130-400); RBC 3.28 10x6/uL (4.00-5.40); RDW 15.4 % (11.5-14.5)
[2017-09-27 13:07] LABS: WBC 12.5 10x3/uL (4.8-10.8)
[2017-09-27 13:18] LABS: CALC OSMOLALITY 278 mosm/kg (275-300); CALCIUM 8.2 mg/dL (8.5-10.1); CHLORIDE - SERUM 105 mmol/L (98-107); CREATININE - SERUM 0.6 mg/dL (0.6-1.3); GLUCOSE 133 mg/dL (74-106); POTASSIUM - SERUM 3.6 mmol/L (3.5-5.1); SODIUM 140 mmol/L (136-145); UREA NITROGEN 7 mg/dL (7-18); eGFR NON AFRICAN AMERICAN > 90 mL/min (90-120)
[2017-09-28] VITALS: BP 136/87
[2017-09-28 05:33] LABS: HEMATOCRIT 33.7 % (36.0-48.0); HEMOGLOBIN 11.9 g/dL (12-16)
[2017-09-28 05:48] VITALS: BP 135/91
[2017-09-28] MEDS ORDERED: NORCO 7.5/325 T1 TA1 PO (07:59)
[2017-09-28 08:42] VITALS: BP 124/81
== END 2017-09-28 11:33 | disposition home or self-care (01) ==
LOC: D.MS 12:00 → D.OPS 12:00 → D.MS 19:28 → D.OPS 09-28 11:33
PROVIDERS: Orthopaedic Surgery
DX: S42.252A Displaced fracture of greater tuberosity of left humerus, initial encounter for closed fracture (principal); S43.102A Unspecified dislocation of left acromioclavicular joint, initial encounter; M75.42 Impingement syndrome of left shoulder; M75.82 Other shoulder lesions, left shoulder; F03.90 Unspecified dementia, unspecified severity, without behavioral disturbance, psychotic disturbance, mood disturbance, and anxiety; Z01.812 Encounter for preprocedural laboratory examination

== ENCOUNTER → 2017-10-05 11:49 | Outpatient (CLI) | payer MEDICARE, OTHER ==
[2017-09-27 12:21] VITALS: BMI 23.2
[~2017-10-05 11:49] MED LIST changes: +NORCO 7.5/325 T1 TA1 PO
== END | disposition home or self-care (01) ==
LOC: D.US 11:49
DX: R60.0 Localized edema (principal)

== ENCOUNTER 2017-10-10 12:12 | Inpatient (IN) | payer MEDICARE, OTHER ==
[~2017-10-10] VITALS: Ht 160 cm; Wt 59.0 kg
[2017-10-10 12:55] LABS: BASOPHILS 0.5 % (0-2); EOSINOPHILS 0.8 % (0-7); HEMATOCRIT 40.4 % (36.0-48.0); IMMATURE GRANULOCYTES 0.5 % (0-5); LYMPHOCYTES 6.2 % (15-50); MCH 39.7 pg (26.0-34.0); MCHC 34.7 g/dL (31.0-37.0); MCV 114.4 fL (80.0-100.0); MEAN PLATELET VOLUME 9.6 fL (7.4-10.4); MONOCYTES 6.2 % (2-11); NEUTROPHILS 85.8 % (40-80); RBC 3.53 10x6/uL (4.00-5.40); RDW 15.5 % (11.5-14.5); WBC 9.7 10x3/uL (4.8-10.8)
[2017-10-10 13:04] LABS: PLATELET COUNT 384 10x3/uL (130-400)
[2017-10-10 13:07] LABS: INR 0.92 (0.85-1.17); PROTIME 11.9 SECONDS (11.6-15.0)
[2017-10-10 13:08] LABS: APTT 34.1 SECONDS (22.8-39.4)
[2017-10-10 13:18] LABS: CALC OSMOLALITY 273 mosm/kg (275-300); CALCIUM 8.1 mg/dL (8.5-10.1); CARBON DIOXIDE 23.2 mmol/L (21.0-32.0); CHLORIDE - SERUM 101 mmol/L (98-107); CREATININE - SERUM 0.6 mg/dL (0.6-1.3); GLUCOSE 111 mg/dL (74-106); POTASSIUM - SERUM 3.5 mmol/L (3.5-5.1); SODIUM 137 mmol/L (136-145); UREA NITROGEN 9 mg/dL (7-18); eGFR NON AFRICAN AMERICAN > 90 mL/min (90-120)
[2017-10-10 13:39] VITALS: BP 121/52
[2017-10-10 15:17] VITALS: BP 100/65; BMI 23.0
[2017-10-10 17:34] VITALS: BP 100/65
[2017-10-10 20:00] VITALS: BP 98/68
[2017-10-11 04:16] VITALS: BP 101/69
[2017-10-11 06:12] LABS: HEMATOCRIT 32.4 % (36.0-48.0); MCH 38.7 pg (26.0-34.0); MCHC 34.3 g/dL (31.0-37.0); MCV 112.9 fL (80.0-100.0); MEAN PLATELET VOLUME 9.4 fL (7.4-10.4); RBC 2.87 10x6/uL (4.00-5.40); RDW 15.5 % (11.5-14.5)
[2017-10-11 06:17] LABS: HEMOGLOBIN 11.1 g/dL (12-16); WBC 5.5 10x3/uL (4.8-10.8)
[2017-10-11 09:33] VITALS: BP 103/68
[2017-10-11 10:25] LABS: % SATURATION 25 % (15-55); IRON 40 ug/dl (35-150); TOTAL IRON BIND CAPACITY 156 ug/dl (260-445); UNSAT IRON BIND CAPACITY 116 ug/dl (150-375)
[2017-10-11 10:39] LABS: ALBUMIN 1.6 g/dL (3.4-5.0); ALKALINE PHOSPHATASE 159 U/L (46-116); ALT (SGPT) 16 U/L (10-68); BILIRUBIN - TOTAL 0.34 mg/dL (0.2-1.3); CALCIUM 7.6 mg/dL (8.5-10.1); CARBON DIOXIDE 24.9 mmol/L (21.0-32.0); CHLORIDE - SERUM 100 mmol/L (98-107); CREATININE - SERUM 0.6 mg/dL (0.6-1.3); LIPASE 143 U/L (73-393); PROTEIN - SERUM 4.7 g/dL (6.4-8.2); SODIUM 137 mmol/L (136-145); eGFR NON AFRICAN AMERICAN > 90 mL/min (90-120)
[2017-10-11 10:43] LABS: CALC OSMOLALITY 269 mosm/kg (275-300); GLUCOSE 68 mg/dL (74-106); POTASSIUM - SERUM 2.3 mmol/L (3.5-5.1); UREA NITROGEN 6 mg/dL (7-18)
[2017-10-11 11:30] VITALS: BP 112/72
[2017-10-11 13:35] VITALS: BMI 23.0
[2017-10-11 17:52] VITALS: Ht 160 cm; Wt 59.0 kg
[2017-10-11 18:33] LABS: APPEARANCE CLEAR (CLEAR); BILIRUBIN NEGATIVE (NEGATIVE); COLOR YELLOW (YELLOW); GLUCOSE NEGATIVE (NEGATIVE); KETONE SMALL mg/dL (NEGATIVE); NITRITE NEGATIVE (NEGATIVE); PROTEIN NEGATIVE (NEGATIVE); UROBILINOGEN NORMAL (NORMAL)
[2017-10-11 18:34] LABS: EPITHELIAL CELLS 0-5 /hpf (0-5); RED CELLS - URINE OCC /hpf (0-5); WHITE CELLS - URINE 0-5 /hpf (0-5)
[2017-10-11 18:35] LABS: BACTERIA FEW /hpf (NONE SEEN)
[2017-10-11 20:00] VITALS: BP 106/63
[2017-10-12 04:00] VITALS: BP 120/60
[2017-10-12 06:34] LABS: BASOPHILS 0 % (0-2); EOSINOPHILS 0.2 % (0-7); HEMATOCRIT 31.9 % (36.0-48.0); HEMOGLOBIN 11.1 g/dL (12-16); IMMATURE GRANULOCYTES 0.3 % (0-5); LYMPHOCYTES 6.7 % (15-50); MCH 39.2 pg (26.0-34.0); MCHC 34.8 g/dL (31.0-37.0); MCV 112.7 fL (80.0-100.0); MEAN PLATELET VOLUME 9.6 fL (7.4-10.4); MONOCYTES 4.1 % (2-11); NEUTROPHILS 88.7 % (40-80); PLATELET COUNT 297 10x3/uL (130-400); RBC 2.83 10x6/uL (4.00-5.40); RDW 15.5 % (11.5-14.5); WBC 6.6 10x3/uL (4.8-10.8)
[2017-10-12 06:49] LABS: ALKALINE PHOSPHATASE 162 U/L (46-116); ALT (SGPT) 16 U/L (10-68); BILIRUBIN - TOTAL 0.31 mg/dL (0.2-1.3); CALCIUM 8.1 mg/dL (8.5-10.1); CARBON DIOXIDE 25.9 mmol/L (21.0-32.0); CHLORIDE - SERUM 105 mmol/L (98-107); CREATININE - SERUM 0.6 mg/dL (0.6-1.3); MAGNESIUM - SERUM 1.8 mg/dL (1.8-2.4); PROTEIN - SERUM 5.4 g/dL (6.4-8.2); SODIUM 139 mmol/L (136-145); UREA NITROGEN 6 mg/dL (7-18); eGFR NON AFRICAN AMERICAN > 90 mL/min (90-120)
[2017-10-12 06:50] LABS: CALC OSMOLALITY 277 mosm/kg (275-300); GLUCOSE 139 mg/dL (74-106); POTASSIUM - SERUM 3.6 mmol/L (3.5-5.1)
[2017-10-12 08:20] LABS: FOLATE (FOLIC ACID) - SERUM 3.6 ng/mL (>3.0)
[2017-10-12 08:40] VITALS: BP 105/65
[2017-10-12 13:34] VITALS: BP 154/94
== END 2017-10-12 16:30 | disposition home health service (06) | DRG 560 ==
LOC: D.MS 12:12 → D.SDCHOLD 12:12 → D.MS 12:25
PROVIDERS: Internal Medicine Nephrology; Orthopaedic Surgery
DX: S42.292D Other displaced fracture of upper end of left humerus, subsequent encounter for fracture with routine healing (principal); S42.001K Fracture of unspecified part of right clavicle, subsequent encounter for fracture with nonunion; F17.203 Nicotine dependence unspecified, with withdrawal; F32.1 Major depressive disorder, single episode, moderate; R91.1 Solitary pulmonary nodule; D53.9 Nutritional anemia, unspecified; J44.9 Chronic obstructive pulmonary disease, unspecified; K44.9 Diaphragmatic hernia without obstruction or gangrene; Z85.43 Personal history of malignant neoplasm of ovary; F10.10 Alcohol abuse, uncomplicated; W19.XXXA Unspecified fall, initial encounter; E87.6 Hypokalemia; E78.5 Hyperlipidemia, unspecified; I25.10 Atherosclerotic heart disease of native coronary artery without angina pectoris; I10 Essential (primary) hypertension; Z95.1 Presence of aortocoronary bypass graft; F03.90 Unspecified dementia, unspecified severity, without behavioral disturbance, psychotic disturbance, mood disturbance, and anxiety; F41.9 Anxiety disorder, unspecified

== ENCOUNTER 2017-10-27 11:37 | Inpatient (IN) | payer MEDICARE, OTHER ==
[~2017-10-27] VITALS: Ht 160 cm; Wt 59.0 kg
--- NOTE | ~2017-10-27 | RHP ---
PATIENT: EDWARD MURILLO MEDICAL RECORD: [id number] ACCOUNT: [id number] LOCATION:[facility].1117 : 52 ADMISSION DATE: 10/27/17 REHABILITATION HISTORY AND PHYSICAL EXAMINATION POST ADMISSION PHYSICIAN EXAMINATION POST-ADMISSION PHYSICAL EXAMINATION AND HISTORY AND PHYSICAL DATE OF ADMISSION: 10/27/2017 ADMITTING DIAGNOSES: Pain secondary to recent surgery on her shoulder with a failed nerve block. HISTORY OF PRESENT ILLNESS: The patient is admitted to the inpatient rehab with a recent shoulder surgery from a fall. She had a nerve block done, which seems to have failed in some point. She is a 67-year-old female patient, who has been at home since her acute surgery. She has been having increasing pain without relief, increased debility, increased self-care deficit. She was admitted for intractable left arm pain. She was recently in the hospital with postop complications due to swelling of her upper extremity. The patient underwent left arm surgery, ORIF and rotator cuff repair on 09/26. reported that the swelling started about 2-3 days after leaving the hospital. Ultrasound was obtained. Possible thrombus, but poor exam due to swelling. She was started on Eliquis. She has returned to the ortho clinic with increased pain and swelling of the upper extremity with very tender to palpation, color change and concerning for RSD and was in the acute hospital from 10/11 to 10/12 and during that time, she had an ultrasound-guided supraclavicular block. The patient's stated that the patient had continued to decline, is having difficulty even standing at times with complaints of dizziness with standing. There was a great fear for falling again because of recent fall and injury. Her states that she has had some dementia. She is also dyslexic, but was completely independent with her mobility and ADLs prior to her fall on 09/23 due to her increased pain with [id number] assist for ADLs and mobility. Barriers to go home include increased pain without relief, self-care deficit decline, decline in generalized health, and continued decrease in mobility, continues to have bathroom problems. She has had UTI also. Her stated that he would like for her to have a short stay in the acute rehab and able to return home hopefully at her prior level of functioning or better. Comorbidities in this patient include left humeral head fracture, hyperlipidemia, COPD, coronary artery disease, alcohol use, tobacco use, nicotine use, hypothyroidism, pneumonia, pulmonary nodule, dementia, cerebral ataxia, chronic low back pain, seizures, occasional nausea and vomiting, and elevated LFTs. PAST MEDICAL HISTORY: Significant for dementia, hypertension, coronary artery bypass grafting, angina. She has had ovarian problems, depression, dementia, anxiety, bipolar disorder, and tobacco use. PAST SURGICAL HISTORY: Includes tonsillectomy, adenoidectomy, hysterectomy, gallbladder surgery, left leg surgery, radiation, and bypass. ALLERGIES: HONEY BEE VENOM. CURRENT MEDICATIONS: Include Crestor 40 mg daily, potassium 10 mEq daily, Zyprexa 5 mg daily, aspirin chewable 81 mg daily, Klonopin 1 mg b.i.d., hydromorphone 10 mg every 4 hours p.r.n., HISTORY AND PHYSICAL [id number] JORGELORAIENEDWARD Seroquel 50 mg at bedtime, Namenda 10 mg b.i.d., melatonin 6 mg at bedtime, DuoNeb updrafts, and Breo 1 puff daily. HABITS: Does have a history of alcohol and tobacco use. FAMILY HISTORY: Noncontributory. SOCIAL HISTORY: The patient hopes to return back home and get back to her prior level of functioning. REVIEW OF SYSTEMS: GENERAL: Does complain of weakness and fatigue. HEENT: Denies cold, cough, or congestion. CARDIOVASCULAR: Denies chest pain. PHYSICAL EXAMINATION: VITAL SIGNS: Stable, afebrile. GENERAL: A thin female, in no acute distress upon exam. HEENT: Normocephalic and atraumatic. Mucosa moist. NECK: Supple. No lymphadenopathy. LUNGS: Clear at this time. HEART: Regular rate and rhythm. ABDOMEN: Benign. EXTREMITIES: Does have noted swelling, which appears normal from her postop surgery. NEUROLOGIC: She does have noted weakness. LABORATORY DATA: White count is 4.8, H&H of 12 and 35, and platelet count is noted to be 177. Her MCV is 111.9 consistent with alcohol use. Sodium 144, potassium 2.9, BUN and creatinine of 13 and 0.7, blood sugar is noted to be 95. ASSESSMENT: This 67-year-old female patient admitted to the rehab with a working diagnosis of intractable pain secondary to shoulder surgery, rule out reflex sympathetic dystrophy. The patient has potential to make improvement. We will institute the following multidisciplinary therapies including, but not limited to physical, occupational, respiratory, speech, nutritional services, prosthetics and orthotics. Given her complex medical condition and risks for more complications, rehabilitation services cannot be provided at a low level of care such as a long term facility. PLAN: 1. Admit to [facility] for intensive inpatient therapy to include the following disciplines: A. Physical therapy to improve gait, all transfer skills and bed mobility to a modified independent level. B. Occupational therapy to improve activities of daily living to a modified independent level. C. Case management to assist with discharge planning and placement options. D. Nutrition to assist with nutritional needs. E. Rehabilitation nursing to assist in monitoring the patient's underlying medical conditions and to assist with any type of bowel or bladder management. 2. The patient's current medications and medical care will be continued. 3. The patient will be placed on standard fall precautions. 4. The patient's estimated length of stay is approximately 7-10 days. 5. We will discuss this patient during care team staff meeting this week. We HISTORY AND PHYSICAL [id number] EDWARD MURILLO will watch for any signs of DTs. I am going to go ahead and give her some potassium to replace that and will follow up in the a.m. TRANSINT:[id number] Voice Confirmation ID: [id number] DOCUMENT ID: [id number] ANA notes whether there has been none or any medical/functional change since admission: - No change since prescreen. ANA attests patient continues to be appropriate for IRF: - Continues to be appropriate. SOHA JEAN MD at 1733 CC: [id number] DICTATION DATE: 10/28/17 1031 MEDIA SPECIALIST: 10/28/17 1108 ADM IN [facility] [address] [place] [address]
[2017-10-27 15:04] VITALS: BP 113/78; BMI 23.0
[2017-10-28 07:07] LABS: BASOPHILS 0.6 % (0-2); EOSINOPHILS 6.4 % (0-7); HEMATOCRIT 34.7 % (36.0-48.0); HEMOGLOBIN 11.6 g/dL (12-16); IMMATURE GRANULOCYTES 0.2 % (0-5); LYMPHOCYTES 17.3 % (15-50); MCH 37.4 pg (26.0-34.0); MCHC 33.4 g/dL (31.0-37.0); MCV 111.9 fL (80.0-100.0); MONOCYTES 9.1 % (2-11); NEUTROPHILS 66.4 % (40-80); PLATELET COUNT 177 10x3/uL (130-400); RDW 14.9 % (11.5-14.5); WBC 4.8 10x3/uL (4.8-10.8)
[2017-10-28 07:16] LABS: CALC OSMOLALITY 286 mosm/kg (275-300); CALCIUM 8.3 mg/dL (8.5-10.1); CHLORIDE - SERUM 107 mmol/L (98-107); CREATININE - SERUM 0.7 mg/dL (0.6-1.3); GLUCOSE 95 mg/dL (74-106); SODIUM 144 mmol/L (136-145); UREA NITROGEN 13 mg/dL (7-18); eGFR NON AFRICAN AMERICAN 89 mL/min (90-120)
[2017-10-28 07:22] LABS: POTASSIUM - SERUM 2.9 mmol/L (3.5-5.1)
[2017-10-28 12:14] VITALS: BMI 23.0
[2017-10-28 20:00] VITALS: BP 101/72
[2017-10-29 08:00] VITALS: BP 129/79
[2017-10-29 19:26] VITALS: BP 102/69
[2017-10-30 08:20] VITALS: BP 128/81
[2017-10-30 09:18] LABS: BASOPHILS 0.8 % (0-2); EOSINOPHILS 5.5 % (0-7); HEMATOCRIT 37.6 % (36.0-48.0); HEMOGLOBIN 12.3 g/dL (12-16); IMMATURE GRANULOCYTES 0.2 % (0-5); LYMPHOCYTES 14.6 % (15-50); MCH 37.5 pg (26.0-34.0); MCHC 32.7 g/dL (31.0-37.0); MCV 114.6 fL (80.0-100.0); MEAN PLATELET VOLUME 10.3 fL (7.4-10.4); MONOCYTES 9.3 % (2-11); NEUTROPHILS 69.6 % (40-80); PLATELET COUNT 172 10x3/uL (130-400); RBC 3.28 10x6/uL (4.00-5.40); RDW 14.6 % (11.5-14.5); WBC 5.3 10x3/uL (4.8-10.8)
[2017-10-30 09:46] LABS: CALC OSMOLALITY 284 mosm/kg (275-300); CALCIUM 8.3 mg/dL (8.5-10.1); CARBON DIOXIDE 25.6 mmol/L (21.0-32.0); CHLORIDE - SERUM 109 mmol/L (98-107); CREATININE - SERUM 0.7 mg/dL (0.6-1.3); GLUCOSE 136 mg/dL (74-106); POTASSIUM - SERUM 3.7 mmol/L (3.5-5.1); SODIUM 143 mmol/L (136-145); UREA NITROGEN 8 mg/dL (7-18); eGFR NON AFRICAN AMERICAN 89 mL/min (90-120)
[2017-10-30 19:00] VITALS: BP 120/83
[2017-10-31 08:00] VITALS: BP 121/76
[2017-10-31 19:35] VITALS: BP 162/95
[2017-11-01 06:59] LABS: BASOPHILS 0.6 % (0-2); EOSINOPHILS 7.4 % (0-7); HEMATOCRIT 35.9 % (36.0-48.0); HEMOGLOBIN 11.9 g/dL (12-16); IMMATURE GRANULOCYTES 0.2 % (0-5); LYMPHOCYTES 17.2 % (15-50); MCH 37.7 pg (26.0-34.0); MCHC 33.1 g/dL (31.0-37.0); MCV 113.6 fL (80.0-100.0); MEAN PLATELET VOLUME 10.6 fL (7.4-10.4); MONOCYTES 9.2 % (2-11); NEUTROPHILS 65.4 % (40-80); PLATELET COUNT 154 10x3/uL (130-400); RBC 3.16 10x6/uL (4.00-5.40); RDW 14.4 % (11.5-14.5)
[2017-11-01 07:24] LABS: CALC OSMOLALITY 282 mosm/kg (275-300); CALCIUM 8.4 mg/dL (8.5-10.1); CARBON DIOXIDE 23.2 mmol/L (21.0-32.0); CHLORIDE - SERUM 110 mmol/L (98-107); CREATININE - SERUM 0.6 mg/dL (0.6-1.3); GLUCOSE 94 mg/dL (74-106); SODIUM 143 mmol/L (136-145); UREA NITROGEN 6 mg/dL (7-18); eGFR NON AFRICAN AMERICAN > 90 mL/min (90-120)
[2017-11-01 08:00] VITALS: BP 90/58
[2017-11-01 19:00] VITALS: BP 106/74
[2017-11-02 08:00] VITALS: BP 96/66
[2017-11-02 13:35] VITALS: Ht 160 cm; Wt 59.0 kg
[2017-11-02 19:00] VITALS: BP 120/81
[2017-11-03 06:51] LABS: BASOPHILS 0.4 % (0-2); EOSINOPHILS 6.3 % (0-7); HEMATOCRIT 36.8 % (36.0-48.0); HEMOGLOBIN 12.3 g/dL (12-16); IMMATURE GRANULOCYTES 0.2 % (0-5); LYMPHOCYTES 17.3 % (15-50); MCH 37.5 pg (26.0-34.0); MCHC 33.4 g/dL (31.0-37.0); MCV 112.2 fL (80.0-100.0); MEAN PLATELET VOLUME 10.7 fL (7.4-10.4); MONOCYTES 9.3 % (2-11); NEUTROPHILS 66.5 % (40-80); PLATELET COUNT 173 10x3/uL (130-400); RBC 3.28 10x6/uL (4.00-5.40); RDW 14.2 % (11.5-14.5); WBC 5.4 10x3/uL (4.8-10.8)
[2017-11-03 07:06] LABS: CALC OSMOLALITY 282 mosm/kg (275-300); CALCIUM 8.4 mg/dL (8.5-10.1); CARBON DIOXIDE 22.9 mmol/L (21.0-32.0); CHLORIDE - SERUM 110 mmol/L (98-107); CREATININE - SERUM 0.7 mg/dL (0.6-1.3); GLUCOSE 100 mg/dL (74-106); POTASSIUM - SERUM 3.8 mmol/L (3.5-5.1); SODIUM 143 mmol/L (136-145); eGFR NON AFRICAN AMERICAN 89 mL/min (90-120)
[2017-11-03 07:09] LABS: UREA NITROGEN 8 mg/dL (7-18)
[2017-11-03 08:00] VITALS: BP 100/66
[2017-11-03 20:00] VITALS: BP 105/63
[2017-11-04 08:56] VITALS: BP 111/73
[2017-11-04 21:54] VITALS: BP 119/63
[2017-11-05 09:04] VITALS: BP 115/73
[2017-11-05 21:01] VITALS: BP 111/72
[2017-11-06 08:00] VITALS: BP 99/74
[2017-11-07 07:00] VITALS: BP 117/75
[2017-11-07 20:09] VITALS: BP 102/65
[2017-11-08 08:27] VITALS: BP 118/75
[2017-11-08 20:29] VITALS: BP 103/61
[2017-11-09 08:00] VITALS: BP 98/65
[2017-11-09] MEDS ORDERED: NORCO 7.5/325 T1 TA1 PO (09:25)
== END 2017-11-09 11:52 | disposition home health service (06) | DRG 947 ==
LOC: D.REHAB 11:37
PROVIDERS: Emergency Medicine
DX: G89.18 Other acute postprocedural pain (principal); J18.9 Pneumonia, unspecified organism; G11.9 Hereditary ataxia, unspecified; F03.90 Unspecified dementia, unspecified severity, without behavioral disturbance, psychotic disturbance, mood disturbance, and anxiety; E78.5 Hyperlipidemia, unspecified; J44.9 Chronic obstructive pulmonary disease, unspecified; I25.10 Atherosclerotic heart disease of native coronary artery without angina pectoris; Z72.89 Other problems related to lifestyle; F17.200 Nicotine dependence, unspecified, uncomplicated; E03.9 Hypothyroidism, unspecified; M54.5 Low back pain; G89.29 Other chronic pain; R91.1 Solitary pulmonary nodule; S42.292D Other displaced fracture of upper end of left humerus, subsequent encounter for fracture with routine healing; W19.XXXD Unspecified fall, subsequent encounter; R79.89 Other specified abnormal findings of blood chemistry

== ENCOUNTER → 2017-11-29 12:34 | Outpatient (CLI) | payer MEDICARE, OTHER ==
[2017-11-02 13:35] VITALS: BMI 23.0
== END | disposition home or self-care (01) ==
LOC: D.MRI 11-27 11:30
DX: M75.121 Complete rotator cuff tear or rupture of right shoulder, not specified as traumatic (principal); X58.XXXA Exposure to other specified factors, initial encounter

== ENCOUNTER → 2017-12-07 13:41 | Outpatient (CLI) | payer MEDICARE, OTHER ==
[2017-11-02 13:35] VITALS: BMI 23.0
== END | disposition home or self-care (01) ==
LOC: D.LABREF 13:41
DX: M19.012 Primary osteoarthritis, left shoulder (principal); Z11.8 Encounter for screening for other infectious and parasitic diseases

== ENCOUNTER 2017-12-25 08:40 | Inpatient (IN) | payer MEDICARE, OTHER ==
[2017-12-22 12:41] LABS: APPEARANCE CLEAR (CLEAR); BILIRUBIN NEGATIVE (NEGATIVE); COLOR YELLOW (YELLOW); GLUCOSE NEGATIVE (NEGATIVE); KETONE NEGATIVE (NEGATIVE); NITRITE NEGATIVE (NEGATIVE); PROTEIN NEGATIVE (NEGATIVE); SPECIFIC GRAVITY 1.025 (1.005-1.020); UROBILINOGEN NORMAL (NORMAL)
[2017-12-22 12:46] LABS: BASOPHILS 0.4 % (0-2); HEMATOCRIT 45.9 % (36.0-48.0); HEMOGLOBIN 15.8 g/dL (12-16); IMMATURE GRANULOCYTES 0.1 % (0-5); MCH 37.6 pg (26.0-34.0); MCHC 34.4 g/dL (31.0-37.0); MCV 109.3 fL (80.0-100.0); MEAN PLATELET VOLUME 10.4 fL (7.4-10.4); NEUTROPHILS 66.5 % (40-80); PLATELET COUNT 171 10x3/uL (130-400); RDW 14.4 % (11.5-14.5); WBC 7.3 10x3/uL (4.8-10.8)
[2017-12-22 12:53] LABS: ANION GAP 9.6 mmol/L (8-16); CALCIUM 9.2 mg/dL (8.5-10.1); CARBON DIOXIDE 31.6 mmol/L (21.0-32.0); CREATININE - SERUM 0.9 mg/dL (0.6-1.3); POTASSIUM - SERUM 3.2 mmol/L (3.5-5.1)
[2017-12-22 12:55] LABS: APTT 34.5 SECONDS (22.8-39.4); INR 0.86 (0.85-1.17); PROTIME 11.4 SECONDS (11.6-15.0)
[~2017-12-25] VITALS: Ht 160 cm; Wt 61.4 kg
--- NOTE | ~2017-12-25 | MORECARE ---
CASE MANAGEMENT DISCHARGE SUMMARY PATIENT: EDWARD MURILLO UNIT: [id number] ADM DATE: 12/25/17 AGE: 67 : 51 SEX: F ROOM/BED: D.2217 AUTHOR: JUAN,DOC PHYSICIAN: REFERRING PHYSICIAN: DALE ZHENG MD DATE OF SERVICE: 12/27/17 Discharge Plan Patient Name: EDWARD MURILLO Facility[facility]:[place] : 1950 Planned Disposition: Home with Home Health Anticipated Discharge Date: Discharge Date: Expected LOS: Initial Reviewer: [email or web address] Initial Review Date: 12/25/2017 Generated: 12/27/17 2:41 pm Comments DCP- Discharge Planning Updated by [email or web address]: Adelaida Ahmadi on 12/27/17 12:[address] Patient Name: EDWARD MURILLO Admission Status: Elective Accout number: [id number] Admission Date: 12-25-2017 : 1950 Admission Diagnosis: Attending: DALE ZHENG Current LOS: 2 Anticipated DC Date: Planned Disposition: Home with Home Health Primary Insurance: MEDICARE A & B Discharge Planning Comments: CM met with patient to assess discharge planning needs. Patient stated that she lives independently at home in [place] and plans to return there at discharge. She lives with her and he will be the one to take her home. She stated that she is safe to return home, but admits that she has fallen 3 times in the past 6 months. I talked to her about inpatient rehab vs skilled vs home health. She would like to go home with Home Health. GEO with [employer]. She has a BSC, walker, wheelchair, nebulizer and shower chair at home. IMM served and explained. CM will continue to follow and assist with DC planning Head Of Quality: Adelaida Ahmadi DCPIA - Discharge Planning Initial Assessment Updated by [id number]: Adelaida Ahmadi on 12/27/17 1:30 pm * Is the patient Alert and Oriented? Yes * How many steps to enter\exit or inside your home? * PCP CASTANEDA * Pharmacy [facility] * Preadmission Environment Home with Family * ADLs Independent * Equipment Bedside Commode Nebulizer Rolling Walker Shower Chair Wheelchair * List name and contact numbers for known caregivers / representatives who currently or will assist patient after discharge: ZAY () [phone] * Verbal permission to speak to the caregivers and representatives has been obtained from the patient. N/A * Community resources currently utilized None * Additional services required to return to the preadmission environment? Yes * Has this patient been hospitalized within the prior 30 days at any hospital? No External Providers External Provider: [facility] Next Contact Date: Service Request Date: Service Type: Resolution: Reviewer: Comments: Coverage Notice Reviewer: [email or web address] Geno Ahmadi Notice Issued Date-Time: 12/27/2017 10:50 Notice Type: IM Discharge Notice Notice Delivered To: Patient Relationship to Patient: Research Environmental Scientist Name: Delivery Method: HAND - Hand Delivered Jannet Days: Prior Verbal Notification: Recipient Understood Notice: Yes Recipient Signature: Yes Med Rec Note Co-signed by Attending: Coverage Notice Comment: Last DP export: 12/27/17 12:31 Patient Name: EDWARD MURILLO Page [id number] at 1341 All edits/amendments must be made on the electronic document DICTATION DATE: 12/27/17 1341 SCHOOL PATROL: SYLVAIN 12/27/17 1341 RPT#: [id number] DC DATE: STATUS: ADM IN [facility] [address] [place] [address] END OF REPORT
--- NOTE | ~2017-12-25 | MORECARE ---
CASE MANAGEMENT DISCHARGE SUMMARY PATIENT: EDWARD MURILLO UNIT: [id number] ADM DATE: 12/25/17 AGE: 67 : 51 SEX: F ROOM/BED: D.2217 AUTHOR: JUAN,DOC PHYSICIAN: REFERRING PHYSICIAN: DALE ZHENG MD DATE OF SERVICE: 12/28/17 Discharge Plan Patient Name: EDWARD MURILLO Facility: [facility]:[place] : 1950 Planned Disposition: Home with Home Health Anticipated Discharge Date: Discharge Date: 12/28/2017 Expected LOS: 0 Initial Reviewer: [email or web address] Initial Review Date: 12/25/2017 Generated: 12/28/17 2:59 pm Comments DCP- Discharge Planning Updated by [email or web address]: Adelaida Ahmadi on 12/28/17 8:[address] PATIENT WILL BE DISCHARGING HOME TODAY WITH [facility]. CM WILL CONTINUE TO FOLLOW AND ASSIST WITH DC PLANNING DCP- Discharge Planning Updated by [email or web address]: Adelaida Ahmadi on 12/27/17 12:[address] Patient Name: EDWARD MURILLO Admission Status: Elective Accout number: [id number] Admission Date: 12-25-2017 : 1950 Admission Diagnosis: Attending: DALE ZHENG Current LOS: 2 Anticipated DC Date: Planned Disposition: Home with Home Health Primary Insurance: MEDICARE A & B Discharge Planning Comments: CM met with patient to assess discharge planning needs. Patient stated that she lives independently at home in [place] and plans to return there at discharge. She lives with her and he will be the one to take her home. She stated that she is safe to return home, but admits that she has fallen 3 times in the past 6 months. I talked to her about inpatient rehab vs skilled vs home health. She would like to go home with Home Health. GEO with [facility]. She has a BSC, walker, wheelchair, nebulizer and shower chair at home. IMM served and explained. CM will continue to follow and assist with DC planning Crimping Machine Operator: Adelaida Ahmadi DCPIA - Discharge Planning Initial Assessment Updated by [email or web address]: Adelaida Ahmadi on 12/27/17 1:30 pm * Is the patient Alert and Oriented? Yes * How many steps to enter\exit or inside your home? * PCP CASTANEDA * Pharmacy [facility] * Preadmission Environment Home with Family * ADLs Independent * Equipment Bedside Commode Nebulizer Rolling Walker Shower Chair Wheelchair * List name and contact numbers for known caregivers / representatives who currently or will assist patient after discharge: ZAY () [phone] * Verbal permission to speak to the caregivers and representatives has been obtained from the patient. N/A * Community resources currently utilized None * Additional services required to return to the preadmission environment? Yes * Has this patient been hospitalized within the prior 30 days at any hospital? No Coverage Notice Reviewer: [id number] Geno Ahmadi Notice Issued Date-Time: 12/27/2017 10:50 Notice Type: IM Discharge Notice Notice Delivered To: Patient Relationship to Patient: It Infrastructure Engineer Name: Delivery Method: HAND - Hand Delivered Jannet Days: Prior Verbal Notification: Recipient Understood Notice: Yes Recipient Signature: Yes Med Rec Note Co-signed by Attending: Coverage Notice Comment: Last DP export: 12/28/17 9:04 Patient Name: EDWARD MURILLO Page [phone] at 1359 All edits/amendments must be made on the electronic document DICTATION DATE: 12/28/171357 DETONATOR ASSEMBLER: SYLVAIN 12/28/171357 RPT#: [id number] DC DATE:12/28/17 STATUS: DIS IN [facility] [address] [place] [address] END OF REPORT
--- NOTE | ~2017-12-25 | OP ---
PATIENT NAME: EDWARD MURILLO MEDICAL RECORD: [id number] :[birth year] LOCATION:D.MS [id number] ADMISSION DATE:12/25/17 SURGEON: DALE ZHENG MD DATE OF OPERATION: 12/25/2017 PREOPERATIVE DIAGNOSIS: Osteoarthritis of the left shoulder. POSTOPERATIVE DIAGNOSIS: Osteoarthritis of the left shoulder. PROCEDURE: Left reverse total shoulder arthroplasty. SURGEON: Dale Zheng MD ANESTHESIA: General. INTRAOPERATIVE COMPLICATIONS: None. SUMMARY OF THE PATHOLOGIC FINDINGS: With complete disruption of the rotator cuff tendon superiorly, there was mostly infraspinatus tendon with findings consistent with rotator cuff arthropathy. IMPLANTS USED: José Miguel Arthrex [employer] Revers system with a size 36 glenosphere, polyethylene small 36+3 stem size 8 standard small baseplate locked in place. OPERATIVE SUMMARY IN DETAIL: After obtaining the appropriate preoperative orthopedic surgery consent as well as anesthetic consultation, evaluation and clearance, the patient was brought to the operating room and placed on the operating table in supine position. After adequate general laryngeal mask was administered, the patient was placed in beach chair position. All pressure points were padded. She was held firmly to the operating table using the vacuum pack suction system. Left upper extremity and shoulder were then prepped and draped in routine sterile fashion. Arm was held in the Arthrex traction boom. Deltopectoral incision was taken down to the cephalic vein, which was identified and protected through the case. The clavipectoral fascia was incised. Conjoined tendon was retracted medially as the deltoid was retracted laterally using a brown retractor. Residual subscapularis was then removed. The shoulder was then dislocated through the wound. Proximal cutting was made using the proximal cutting guide for the Arthrex Univers system. The head was then protected and the glenoid was approached. Circumferential labrectomy at the glenoid was followed by placement of the pin using the pin placement guide. Reaming was then followed by clearance of the lateral aspect of the glenoid for placement of the baseplate, which was put in the appropriate position and then anchored medially first with compression screw and then superior and inferior with locking screws. The glenosphere was then put into place, tamped on the Weller taper checked to be sure it was stable and firm and indeed was. Attention was then returned to the proximal humerus where proximal reaming was then followed by serial and sequential broaching. Trials were put in place, taken through range of motion of those corresponding to the above-mentioned implants. Final component was assembled on the back field, put in place and trials were undertaken again with the trial insert and it was felt that +3 was most appropriate. A +[address]. The shoulder was reduced, taken through range of motion and found to be stable without liftoff with abduction, external rotation or internal rotation. Wound was then copiously irrigated. Deltopectoral incision was closed followed by #1 Vicryl, 2-0 Vicryl and skin OPERATIVE REPORT [id number] EDWARD MURILLO luisa for final skin closure. Sterile dressings were applied. The patient was awakened, taken to recovery room in stable condition. All final needle and sponge counts were correct. TRANSINT:[id number] Voice Confirmation ID: [id number] DOCUMENT ID: [id number] MARCE ADAMS, DALE BROWNING at 1312 CC: [id number] DICTATION DATE: 12/29/17 1356 FILLING HAULER WEAVING: 12/29/17 1513 DIS IN 12/28/17 [facility] [address] [place] [address]
--- NOTE | ~2017-12-25 | MORECARE ---
CASE MANAGEMENT DISCHARGE SUMMARY PATIENT: EDWARD MURILLO UNIT: [id number] ADM DATE: 12/25/17 AGE: 67 : 51 SEX: F ROOM/BED: D.2217 AUTHOR: ANNABEL MARTINEZ PHYSICIAN: REFERRING PHYSICIAN: DALE ZHENG MD DATE OF SERVICE: 12/27/17 Discharge Plan Patient Name: EDWRAD MURILLO [facility] [facility] 1950 Planned Disposition: Home with Home Health Anticipated Discharge Date: Discharge Date: Expected LOS: Initial Reviewer: [email or web address] Initial Review Date: 12/25/2017 Generated: 12/27/17 2:31 pm DCPIA - Discharge Planning Initial Assessment Updated by [id number]: Adelaida Ahmadi on 12/27/17 1:30 pm * Is the patient Alert and Oriented? Yes * How many steps to enter\exit or inside your home? * PCP CASTANEDA * Pharmacy [facility] * Preadmission Environment Home with Family * ADLs Independent * Equipment Bedside Commode Nebulizer Rolling Walker Shower Chair Wheelchair * List name and contact numbers for known caregivers / representatives who currently or will assist patient after discharge: ZAY () [phone] * Verbal permission to speak to the caregivers and representatives has been obtained from the patient. N/A * Community resources currently utilized None * Additional services required to return to the preadmission environment? Yes * Has this patient been hospitalized within the prior 30 days at any hospital? No Patient Name: EDWARD MURILLO Page [phone] at 1332 All edits/amendments must be made on the electronic document DICTATION DATE: 12/27/17 1331 PICK UP WORKER: SYLVAIN 12/27/17 1331 RPT#: [id number] DC DATE: STATUS: ADM IN [facility] [address] [place] [address] END OF REPORT
--- NOTE | ~2017-12-25 | MORECARE ---
CASE MANAGEMENT DISCHARGE SUMMARY PATIENT: EDWARD MURILLO UNIT: [id number] ADM DATE: 12/25/17 AGE: 67 : 51 SEX: F ROOM/BED: D.2217 AUTHOR: JUAN,DOC PHYSICIAN: REFERRING PHYSICIAN: DALE ZHENG MD DATE OF SERVICE: 12/28/17 Discharge Plan Patient Name: EDWARD MURILLO Facility: [facility]:[place] : 1950 Planned Disposition: Home with Home Health Anticipated Discharge Date: Discharge Date: Expected LOS: Initial Reviewer: [email or web address] Initial Review Date: 12/25/2017 Generated: 12/28/17 11:04 am Comments DCP- Discharge Planning Updated by [email or web address]: Adelaida Ahmadi on 12/28/17 8:[address] PATIENT WILL BE DISCHARGING HOME TODAY WITH [facility]. CM WILL CONTINUE TO FOLLOW AND ASSIST WITH DC PLANNING DCP- Discharge Planning Updated by [email or web address]: Adelaida Ahmadi on 12/27/17 12:[address] Patient Name: EDWARD MURILLO Admission Status: Elective Accout number: [id number] Admission Date: 12-25-2017 : 1950 Admission Diagnosis: Attending: DALE ZHENG Current LOS: 2 Anticipated DC Date: Planned Disposition: Home with Home Health Primary Insurance: MEDICARE A & B Discharge Planning Comments: CM met with patient to assess discharge planning needs. Patient stated that she lives independently at home in [place] and plans to return there at discharge. She lives with her and he will be the one to take her home. She stated that she is safe to return home, but admits that she has fallen 3 times in the past 6 months. I talked to her about inpatient rehab vs skilled vs home health. She would like to go home with Home Health. [facility]O with [facility]. She has a BSC, walker, wheelchair, nebulizer and shower chair at home. IMM served and explained. CM will continue to follow and assist with DC planning Retail Consultant: Adelaida Ahmadi DCPIA - Discharge Planning Initial Assessment Updated by [email or web address]: Adelaida Ahmadi on 12/27/17 1:30 pm * Is the patient Alert and Oriented? Yes * How many steps to enter\exit or inside your home? * PCP CASTANEDA * Pharmacy [facility] * Preadmission Environment Home with Family * ADLs Independent * Equipment Bedside Commode Nebulizer Rolling Walker Shower Chair Wheelchair * List name and contact numbers for known caregivers / representatives who currently or will assist patient after discharge: ZAY () [phone] * Verbal permission to speak to the caregivers and representatives has been obtained from the patient. N/A * Community resources currently utilized None * Additional services required to return to the preadmission environment? Yes * Has this patient been hospitalized within the prior 30 days at any hospital? No Coverage Notice Reviewer: [id number] Geno Ahmadi Notice Issued Date-Time: 12/27/2017 10:50 Notice Type: IM Discharge Notice Notice Delivered To: Patient Relationship to Patient: Solution Manager Name: Delivery Method: HAND - Hand Delivered Jannet Days: Prior Verbal Notification: Recipient Understood Notice: Yes Recipient Signature: Yes Med Rec Note Co-signed by Attending: Coverage Notice Comment: Last DP export: 12/27/17 12:41 Patient Name: EDWARD MURILLO Page [phone] at 1004 All edits/amendments must be made on the electronic document DICTATION DATE: 12/28/17 100 ASSISTANT STORE LEADER: SYLVAIN 12/28/17 1004 RPT#: [id number] DC DATE: STATUS: ADM IN [facility] [address] [place] [address] END OF REPORT
[~2017-12-25 08:40] MED LIST changes: +NORCO 10-325 TA1 TAB PO
[2017-12-25 09:22] VITALS: BMI 23.9
[2017-12-25 17:16] VITALS: BP 119/75
[2017-12-25 18:50] VITALS: BP 119/75; Ht 160 cm; Wt 61.4 kg
[2017-12-25 21:11] VITALS: BP 93/57
[2017-12-26 00:35] VITALS: BP 112/60
[2017-12-26 05:18] VITALS: BP 136/83
[2017-12-26 06:53] LABS: HEMATOCRIT 35.5 % (36.0-48.0); HEMOGLOBIN 12.3 g/dL (12-16); MCH 37.3 pg (26.0-34.0); MCHC 34.6 g/dL (31.0-37.0); MCV 107.6 fL (80.0-100.0); MEAN PLATELET VOLUME 11.6 fL (7.4-10.4); RBC 3.3 10x6/uL (4.00-5.40); RDW 14.6 % (11.5-14.5); WBC 6.5 10x3/uL (4.8-10.8)
[2017-12-26 08:24] VITALS: BP 139/83
[2017-12-26 12:04] VITALS: BP 122/71
[2017-12-26 16:44] VITALS: BP 116/76
[2017-12-26 21:11] VITALS: BP 95/54
[2017-12-27 03:39] VITALS: BP 101/60
[2017-12-27 07:09] LABS: HEMATOCRIT 34.4 % (36.0-48.0); HEMOGLOBIN 11.6 g/dL (12-16); MCH 37.1 pg (26.0-34.0); MCHC 33.7 g/dL (31.0-37.0); MEAN PLATELET VOLUME 10.3 fL (7.4-10.4); RBC 3.13 10x6/uL (4.00-5.40); RDW 15.1 % (11.5-14.5); WBC 5.5 10x3/uL (4.8-10.8)
[2017-12-27 07:11] LABS: MCV 109.9 fL (80.0-100.0)
[2017-12-27 08:51] VITALS: BP 95/55
[2017-12-27 12:36] VITALS: BP 95/60
[2017-12-27 16:52] VITALS: BP 104/65
[2017-12-27 20:00] VITALS: BP 93/54
[2017-12-28 00:04] VITALS: BP 86/52
[2017-12-28 04:00] VITALS: BP 119/71
[2017-12-28] MEDS ORDERED: NORCO 10-325 TA1 TAB PO (08:14)
[2017-12-28 08:58] VITALS: BP 129/81
== END 2017-12-28 10:30 | disposition home health service (06) | DRG 483 ==
LOC: D.MS 08:40 → D.SDCHOLD 08:40 → D.MS 16:52
PROVIDERS: Orthopaedic Surgery
PROC: 0RRK00Z Replacement of Left Shoulder Joint with Reverse Ball and Socket Synthetic Substitute, Open Approach (ICD-10-PCS; principal; 2017-12-25 13:00)
DX: M12.812 Other specific arthropathies, not elsewhere classified, left shoulder (principal)

== ENCOUNTER 2018-01-16 13:59 | Emergency (ER) | payer MEDICARE, OTHER ==
[~2018-01-16] VITALS: Ht 160 cm; Wt 51.4 kg
[2018-01-16 14:04] VITALS: BP 117/76; Ht 160 cm; Wt 51.4 kg
== END 2018-01-16 14:21 | disposition home or self-care (01) ==
LOC: D.ER 13:59
DX: Z03.89 Encounter for observation for other suspected diseases and conditions ruled out (principal)

== ENCOUNTER → 2018-03-19 14:48 | Outpatient (CLI) | payer MEDICARE, OTHER ==
[~2018-03-19 14:48] MED LIST changes: +ARICEPT23 MG PO; +LASIX20 MG PO; +MEGACE ES625 MG/5 M PO; +VITAMIN D31000 UNIT PO
[2018-03-19 15:22] LABS: CALC OSMOLALITY 271 mosm/kg (275-300); CALCIUM 9.5 mg/dL (8.5-10.1); CARBON DIOXIDE 25.6 mmol/L (21.0-32.0); CHLORIDE - SERUM 99 mmol/L (98-107); CREATININE - SERUM 0.8 mg/dL (0.6-1.3); GLUCOSE 77 mg/dL (74-106); SODIUM 137 mmol/L (136-145); UREA NITROGEN 9 mg/dL (7-18); eGFR NON AFRICAN AMERICAN 76 mL/min (90-120)
[2018-03-19 15:26] LABS: POTASSIUM - SERUM 2.9 mmol/L (3.5-5.1)
== END | disposition home or self-care (01) ==
LOC: D.LABREF 14:48
PROVIDERS: Family Medicine
DX: E87.6 Hypokalemia (principal)

== ENCOUNTER → 2018-03-22 14:29 | Outpatient (CLI) | payer MEDICARE, OTHER ==
[2018-03-22 15:04] LABS: ALBUMIN 2.5 g/dL (3.4-5.0); ANION GAP 17.3 mmol/L (8-16); BILIRUBIN - TOTAL 0.3 mg/dL (0.2-1.3); CALCIUM 9.3 mg/dL (8.5-10.1); CARBON DIOXIDE 20.8 mmol/L (21.0-32.0); POTASSIUM - SERUM 4.1 mmol/L (3.5-5.1); PROTEIN - SERUM 6.1 g/dL (6.4-8.2)
== END | disposition home or self-care (01) ==
LOC: D.LABREF 14:29
PROVIDERS: Family Medicine
DX: Z51.81 Encounter for therapeutic drug level monitoring (principal); Z79.899 Other long term (current) drug therapy; E87.6 Hypokalemia

== ENCOUNTER 2018-04-13 18:30 | Inpatient (IN) | payer MEDICARE, OTHER ==
[~2018-04-13] VITALS: Ht 152.4 cm; Wt 51.3 kg
--- NOTE | 2018-04-13 19:10 | NUR ---
RECEIVED PATIENT ON THE UNIT. BED IS IN THE LO WPOSITION WITH SIDERAILS X2 AND CALL LIGHT WITHIN REACH. THE PATIENT WAS EDUCATED ON THE USE OF A CALL LIGHT AND DEMONSTRATES UNDERSTANDING VIA TEACHBACK METHOD. THE PATIENT APPEARS COMFORTABLE AND HAS NO QUESTIONS OR CONCERNS AT THIS TIME.
[2018-04-13 21:00] VITALS: BP 97/57; BMI 22.1
[2018-04-13 21:21] VITALS: BP 97/57
--- NOTE | 2018-04-14 02:34 | NUR ---
THE PATIENT APPEARS TO BE SLEEPING COMFORTABLY. BED IS IN THE LOW POSITION WITH SIDERAILS X2 AND CALL LIGHT WITHIN REACH.
[2018-04-14 07:31] VITALS: BP 106/70
--- NOTE | 2018-04-14 10:15 | NUR ---
CALLED PHARMACY TWICE FOR RAMILA. IT IS NOT IN HER CASSETT, IT IS GRAYED OUT IN PYXIS. MED NOT GIVEN DUE TO NOT AVAIL.
--- NOTE | 2018-04-14 12:59 | NUR ---
SITTING UP IN BED EATING LUNCH. HAS BEEN TEARFUL AND UPSET TODAY. VISITED TO TRY TO KEEP HER CALM. CALL LIGHT IN REACH
--- NOTE | 2018-04-14 13:03 | NUR ---
MEGACE NOT GIVEN, MARKED NOT GIVEN DUE TO PHARMACY NOT DELIVERING AFTER REPEATED CALLS.
[2018-04-14 13:32] VITALS: Ht 152.4 cm; Wt 51.3 kg
--- NOTE | 2018-04-14 16:54 | NUR ---
RESTING QUIETLY IN BED WITH EYES CLOSED. NO S/S DISTRESS NOTED. CALL LIGHT IN REACH.
--- NOTE | 2018-04-14 19:15 | NUR ---
THE PATIENT WAS LYING IN BED WATCHING TELEVISION WHEN STAFF ENTERED HER ROOM. BED IS IN THE LOW POSITION WITH SIDERAILS X2 AND CALL LIGHT WITHIN REACH. THE PATIENT WAS EDUCATED TO USE THE CALL LIGHT WHENEVER SHE NEEDS TO GET UP AND EDEMONSTRATED UNDERSTANDING VIA TEACHBACK METHOD. THE PATIENT APPEARS COMFORTABLE WITH NO QUESTIONS OR CONCERNS AT THIS TIME.
--- NOTE | 2018-04-15 01:34 | NUR ---
THE PATIENT APPEARS TO BE SLEEPING. BED IS IN THE LOW POSITION WITH SIDERAILS X2 AND CALL LIGHT WITHIN REACH.
[2018-04-15 06:44] VITALS: BP 90/56
[2018-04-15 08:14] VITALS: BP 87/49
--- NOTE | 2018-04-15 12:39 | NUR ---
IN ROOM WITH PT. PT AND ARE ANXIOUS TO DC HOME TODAY. DR JEAN CALLED AND MESSAGE LEFT.
--- NOTE | 2018-04-15 17:15 | NUR ---
LAYING IN BED WATCHING TV. IS STILL CONFUSED BUT PLEASANT. DENIES PAIN. UP WITH MIN ASST TO GO TO BATHROOM. CALL LIGHT IN REACH
--- NOTE | 2018-04-15 19:31 | NUR ---
THE PATIENT WAS LYING IN BED AND WATCHING TELEVISION WHEN STAFF ENTERED HER ROOM. BED IS IN THE LOW POSITION WITH SIDERAILS X2 AND CALLL LIGHT WITHIN REACH. THE PATIENT WAS EDUCATED TO CALL THE NURSE WHENEVER SHE WANTS TO GET OUT OF BED AND DEMONSTRATES UNDERSTANDING VIA TEACHBACK METHOD. THE PATIENT APPEARS COMFORTABLE WITH NO QUESTIONS OR CONCERNS AT THIS TIME.
[2018-04-15 21:57] VITALS: BP 79/51
--- NOTE | 2018-04-16 03:06 | NUR ---
THE PATIENT APPEARS TO BE SLEEPING. BED IN O WPOSITION WITH SIDERAILS X2 AND CALL LIGHT WITHIN REACH.
[2018-04-16 07:58] LABS: BASOPHILS 0.4 % (0-2); EOSINOPHILS 3.2 % (0-7); HEMATOCRIT 30.8 % (36.0-48.0); HEMOGLOBIN 10.4 g/dL (12-16); IMMATURE GRANULOCYTES 0.2 % (0-5); MCH 34.3 pg (26.0-34.0); MCHC 33.8 g/dL (31.0-37.0); MCV 101.7 fL (80.0-100.0); MEAN PLATELET VOLUME 9.6 fL (7.4-10.4); MONOCYTES 12.7 % (2-11); NEUTROPHILS 58.5 % (40-80); PLATELET COUNT 222 10x3/uL (130-400); RBC 3.03 10x6/uL (4.00-5.40); RDW 15.6 % (11.5-14.5); WBC 5.6 10x3/uL (4.8-10.8)
[2018-04-16 08:24] LABS: CALC OSMOLALITY 290 mosm/kg (275-300); CALCIUM 8.6 mg/dL (8.5-10.1); CARBON DIOXIDE 23.9 mmol/L (21.0-32.0); CHLORIDE - SERUM 109 mmol/L (98-107); CREATININE - SERUM 0.6 mg/dL (0.6-1.3); GLUCOSE 98 mg/dL (74-106); SODIUM 145 mmol/L (136-145); UREA NITROGEN 18 mg/dL (7-18); eGFR NON AFRICAN AMERICAN > 90 mL/min (90-120)
[2018-04-16 08:31] VITALS: BP 96/52
[2018-04-16 08:50] LABS: POTASSIUM - SERUM 2.9 mmol/L (3.5-5.1)
--- NOTE | 2018-04-16 09:16 | RHP ---
PATIENT: EDWARD MURILLO MEDICAL RECORD: [id number] ACCOUNT: [id number] [facility] [birth year] ADMISSION DATE: 04/13/18 REHABILITATION HISTORY AND PHYSICAL EXAMINATION POST ADMISSION PHYSICIAN EXAMINATION POST ADMISSION PHYSICAL EXAMINATION AND HISTORY AND PHYSICAL DATE OF ADMISSION: 04/13/2018 ADMITTING DIAGNOSIS: Debility secondary to severe malnutrition. HISTORY OF PRESENT ILLNESS: The patient is a 68-year-old female patient sent to the Emergency Room by house calls due to progressively getting weaker with poor p.o. intake and increased shortness of breath. She has got a past medical history of dementia, angina, ovarian cancer, depression, bipolar disorder, tobacco use, anorexia, cirrhosis, COPD, alcohol abuse. Her reports that she had been eating somewhat poorly. She had lost weight. She had lost approximately 35 pounds in the previous 3 months. She had a nodule in her lung that had been biopsied during her acute hospital stay. She had also had a CTA scan that showed no signs of pulmonary embolus. The patient was mildly hypermetabolic with a maximum SUV of 2.4 in the past and apparently unsuccessful attempt at CT-guided biopsy by IR in the past due to size and location of the lesion. She has severe malnutrition. 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 She is short of breath with exertion, weakness, impaired mobility. She has been receiving updrafts. She is a high fall risk, and she also has self-care deficits. Comorbidities include hyperlipidemia, pulmonary nodule, coronary artery disease, hypertension, Alzheimer dementia, dehydration, macrocytic anemia, hypothyroidism, protein-calorie malnutrition, emphysema, chronic tobacco use, history of coronary bypass grafting, CVA in the past, depression. PAST MEDICAL HISTORY: Significant for dementia, hypertension, angina, ovarian cancer, depression, anxiety, bipolar, tobacco use, cirrhosis, hyperlipidemia, anemia, and small hiatal hernia. PAST SURGICAL HISTORY: Includes tonsillectomy and adenoidectomy, hysterectomy, gallbladder surgery, left leg plate, radiation, coronary artery bypass grafting and stent placement. ALLERGIES: HONEY BEES. CURRENT MEDICATIONS: Include Crestor 40 mg daily, Seroquel 50 mg at bedtime, potassium 20 mEq daily, Namenda 10 mg b.i.d., melatonin 6 mg at bedtime, Megace 625 daily, Keppra 250 t.i.d., Lasix 20 mg daily, Aricept 10 mg at bedtime, clonazepam 1 mg b.i.d., aspirin chewable 81 mg daily, MiraLax 17 grams in 8 ounces of water daily, and DuoNeb updrafts as needed. HABITS: No current alcohol or tobacco use. FAMILY HISTORY: Noncontributory. SOCIAL HISTORY: The patient hopes to return back home with her . HISTORY AND PHYSICAL [id number] EDWARD MURILLO REVIEW OF SYSTEMS: GENERAL: Does complain of weakness and fatigue. HEENT: Denies cold, cough, or congestion. CARDIOVASCULAR: Denies chest pain. PHYSICAL EXAMINATION: VITAL SIGNS: Stable, afebrile. GENERAL: A very thin female, in no acute distress upon exam. HEENT: Normocephalic and atraumatic. Mucosa moist. NECK: Supple. No lymphadenopathy. LUNGS: Clear at this time. HEART: Regular rate and rhythm. No murmurs, rubs, or gallops. ABDOMEN: Benign. EXTREMITIES: No clubbing, cyanosis or edema. NEUROLOGIC: She does have some noted mentation changes and proximal muscle weakness. LABORATORY DATA: White count is 5000, H&H of 10 and 30, and platelet count is noted to be 216. Her chemistry showed a sodium of 146, potassium 3.6, BUN and creatinine of 9 and 0.8. Her serum iron is 40. Her TIBC is low at 156. ASSESSMENT: This is a 68-year-old female patient with noted anorexia and debility. The patient has potential to make improvement. We will institute the following multidisciplinary therapies including, but not limited to, physical, occupational, respiratory, speech, nutritional services, prosthetics, and orthotics. Given her complex medical condition and risk for more complications, rehabilitation services cannot be provided at a lower level of care such as a skilled nurse facility. PLAN: 1. Admit to [facility] for inpatient therapy to include the following disciplines: A. Physical therapy to improve gait, all transfer skills, and bed mobility to modified independent level. B. Occupational therapy to improve activities of daily living to a modified independent level. C. Case management to assist with discharge planning and placement options. D. Nutrition to assist with nutritional needs. E. Rehabilitation nursing to assist in monitoring the patient's underlying medical conditions and to assist with any type of bowel or bladder management. 2. The patient's current medications and medical care will be continued. 3. The patient will be placed on standard fall precautions. 4. We will involve nutrition in this patient's care and we will hopefully get her feeling better and able to do ADLs on her own, and we will follow up in the a.m. TRANSINT:[id number] Voice Confirmation ID: [id number] DOCUMENT ID: [id number] ANA notes whether there has been none or any medical/functional change since admission: - No change since pre-admission screen. ANA attests patient continues to be appropriate for IRF: HISTORY AND PHYSICAL [id number] EDWARD MURILLO - Continues to be appropriate. SOHA JEAN MD at 0916 CC: [id number] DICTATION DATE: 04/14/18 1149 LIGHTNING ROD INSTALLER: 04/14/18 1301 ADM IN [place] [id number] [place] [id number]
[2018-04-16] MEDS ORDERED: K-DUR20 MEQ PO (09:22)
--- NOTE | 2018-04-16 10:20 | NUR ---
PATIENT DISCHARGING HOME TODAY WITH [facility]. [facility] WILL FOLLOW WITH PATIENT. NO NEW DME NEEDED AT THIS TIME. PATIENT CHOICE FORM FOR HOME HEALTH AND [employer] FOR[facility] SIGNED, COPIES GIVEN TO PATIENT AND FILED IN CHART.PATIENT WILL SEE DR. CASTANEDA NEEDED, DR. PENA 06/12/18 @ 1:00, [facility] 06/06/18 @ 8:00 FOR PFT'S AND WALK TEST. DISCHARGE INSTRUCTIONS WITH [facility] DATA FAXED TO PCP AND HOME HEALTH.
== END 2018-04-16 14:10 | disposition home health service (06) | DRG 947 ==
LOC: D.REHAB 18:30
PROVIDERS: ADMIT Emergency Medicine; ATTEND Emergency Medicine
DX: R53.81 Other malaise (principal); E43 Unspecified severe protein-calorie malnutrition; N17.9 Acute kidney failure, unspecified; E78.5 Hyperlipidemia, unspecified; R91.1 Solitary pulmonary nodule; I25.10 Atherosclerotic heart disease of native coronary artery without angina pectoris; I10 Essential (primary) hypertension; E03.9 Hypothyroidism, unspecified; E86.0 Dehydration; J43.9 Emphysema, unspecified; F17.200 Nicotine dependence, unspecified, uncomplicated; F32.9 Major depressive disorder, single episode, unspecified; G30.9 Alzheimer's disease, unspecified; F02.80 Dementia in other diseases classified elsewhere, unspecified severity, without behavioral disturbance, psychotic disturbance, mood disturbance, and anxiety; Z68.22 Body mass index [BMI] 22.0-22.9, adult; F31.9 Bipolar disorder, unspecified; J30.9 Allergic rhinitis, unspecified; K21.9 Gastro-esophageal reflux disease without esophagitis; E87.6 Hypokalemia

== ENCOUNTER 2018-10-22 12:58 | Inpatient (IN) | payer MEDICARE, OTHER ==
[~2018-10-22] VITALS: Ht 160 cm; Wt 54.1 kg
[2018-10-22 13:40] LABS: BASOPHILS 0.4 % (0-2); EOSINOPHILS 2.6 % (0-7); HEMATOCRIT 31.7 % (36.0-48.0); IMMATURE GRANULOCYTES 0.4 % (0-5); LYMPHOCYTES 9.9 % (15-50); MCH 36.5 pg (26.0-34.0); MCHC 34.7 g/dL (31.0-37.0); MCV 105.3 fL (80.0-100.0); MEAN PLATELET VOLUME 9.3 fL (7.4-10.4); MONOCYTES 6.9 % (2-11); NEUTROPHILS 79.8 % (40-80); PLATELET COUNT 211 10x3/uL (130-400); RBC 3.01 10x6/uL (4.00-5.40); RDW 18.4 % (11.5-14.5); WBC 5.4 10x3/uL (4.8-10.8)
[2018-10-22 13:48] LABS: ALBUMIN 2.6 g/dL (3.4-5.0); ALKALINE PHOSPHATASE 123 U/L (46-116); ALT (SGPT) 12 U/L (10-68); BILIRUBIN - TOTAL 0.27 mg/dL (0.2-1.3); CALC OSMOLALITY 278 mosm/kg (275-300); CALCIUM 8.6 mg/dL (8.5-10.1); CARBON DIOXIDE 27.3 mmol/L (21.0-32.0); CHLORIDE - SERUM 103 mmol/L (98-107); CREATININE - SERUM 0.8 mg/dL (0.6-1.3); GLUCOSE 84 mg/dL (74-106); POTASSIUM - SERUM 3.3 mmol/L (3.5-5.1); PROTEIN - SERUM 5.8 g/dL (6.4-8.2); SODIUM 140 mmol/L (136-145); UREA NITROGEN 15 mg/dL (7-18); eGFR NON AFRICAN AMERICAN 76 mL/min (90-120)
[2018-10-22 13:52] LABS: AMYLASE - SERUM 14 U/L (25-115); LIPASE 51 U/L (73-393); TROPONIN-I < 0.017 ng/mL (0.000-0.060)
--- NOTE | 2018-10-22 14:34 | NUR ---
URINE SAMPLE SENT TO LAB AT THIS TIME
[2018-10-22 14:45] LABS: APPEARANCE CLEAR (CLEAR); BILIRUBIN NEGATIVE (NEGATIVE); COLOR YELLOW (YELLOW); GLUCOSE NEGATIVE (NEGATIVE); KETONE MODERATE mg/dL (NEGATIVE); NITRITE NEGATIVE (NEGATIVE); PROTEIN NEGATIVE (NEGATIVE); UROBILINOGEN NORMAL (NORMAL)
[2018-10-22 14:47] LABS: EPITHELIAL CELLS 0-5 /hpf (0-5); RED CELLS - URINE 0-5 /hpf (0-5)
[2018-10-22 14:48] LABS: BACTERIA FEW /hpf (NONE SEEN)
[2018-10-22 17:08] VITALS: BP 139/85
--- NOTE | 2018-10-22 17:24 | NUR ---
PT LYING IN BED, RESPIRATIONS EVEN AND UNLABORED. PT REMAINS ALERT AND ORIENTED TO PERSON AND PLACE ONLY. PT CONTINUES TO C/O ABD PAIN RATED 8/10. PT REQUESTED "PAIN MEDICINE" MINUTES AFTER IV MORPHINE WAS ADMINISTERED. PT STATED THAT SHE "DIDN'T REMEMBER GETTING ANY." IV INFUSING ORDERED. CALL LIGHT IN REACH. WILL CONTINUE TO MONITOR.
[2018-10-22] MEDS ORDERED: ANORO ELLIPTA1 EACH INH (18:20)
--- NOTE | 2018-10-22 19:07 | NUR ---
AWAKE AND ALET SKIN WARM AND DRY LCTA BED LOW AND LOCKED AND CALL LIGHT IN RECH PT DENIES ANY NEEDS AT THIS TIME
[2018-10-22 20:00] VITALS: BP 128/82
--- NOTE | 2018-10-22 20:23 | NUR ---
NEW ORDERS NOTED PT REFUSED SCDS AT THIS TIME AND I HAVE NO TELEMETRY AVAILABLE AT THIS TIME
[2018-10-23] VITALS (7 sets, daily range): BP systolic 93–128; BP diastolic 57–84; Ht 160 cm; Wt 54.1 kg
--- NOTE | 2018-10-23 03:37 | NUR ---
i have recieved this pt and concur with the shift assessment conducted by the Licensed Practical Nurse during this shift.
[2018-10-23 05:41] LABS: BASOPHILS 0.6 % (0-2); HEMATOCRIT 29.2 % (36.0-48.0); IMMATURE GRANULOCYTES 0.4 % (0-5); LYMPHOCYTES 7.5 % (15-50); MCH 36.1 pg (26.0-34.0); MCHC 34.2 g/dL (31.0-37.0); MCV 105.4 fL (80.0-100.0); MONOCYTES 7.5 % (2-11); PLATELET COUNT 180 10x3/uL (130-400); RBC 2.77 10x6/uL (4.00-5.40); RDW 18.1 % (11.5-14.5)
[2018-10-23 06:16] LABS: CALC OSMOLALITY 272 mosm/kg (275-300); CALCIUM 7.8 mg/dL (8.5-10.1); CARBON DIOXIDE 24.2 mmol/L (21.0-32.0); CHLORIDE - SERUM 106 mmol/L (98-107); CREATININE - SERUM 0.7 mg/dL (0.6-1.3); GLUCOSE 74 mg/dL (74-106); POTASSIUM - SERUM 3.6 mmol/L (3.5-5.1); SODIUM 138 mmol/L (136-145); eGFR NON AFRICAN AMERICAN 88 mL/min (90-120)
[2018-10-23 06:17] LABS: UREA NITROGEN 7 mg/dL (7-18)
--- NOTE | 2018-10-23 07:35 | NUR ---
REPORT RECEIVED. WILL CONTINUE WITH POC. PT CURRENTLY LYING SUPINE. CALL LIGHT W/I REACH. PT IS AAO AND UP WITH ASSIST. RR EVEN AND UNLABORED ON RA. NS INFUSING @100ML/HR VIA L.FOR PIV. PT ASSISTED TO AND FROM BATHROOM. PT DENIES ANY NEEDS. NO S/S OF DISTRESS NOTED. WILL CTM.
[2018-10-23 12:09] LABS: % SATURATION 23 % (15-55); IRON 54 ug/dl (35-150); TOTAL IRON BIND CAPACITY 233 ug/dl (260-445); UNSAT IRON BIND CAPACITY 179 ug/dl (150-375)
--- NOTE | 2018-10-23 16:51 | NUR ---
I have reviewed this patient and I concur with the Shift Assessment completed by the Licensed Practical Nurse today this shift.
--- NOTE | 2018-10-23 20:45 | NUR ---
EVENING ROUNDS COMPLETED. VSS, AAOX3, PROVIDER STATES PT CAN BE STARTED ON REGULAR DIET TOLERATED. TURKEY SANDWICH PROVIDED PER PT'S REQUEST. PT VOICED THANKS. PT DENIES ANY FURTHER NEEDS AT THIS TIME. CL WITHIN REACH.
[2018-10-24] VITALS (26 sets, daily range): BP systolic 64–139; BP diastolic 40–103
--- NOTE | 2018-10-24 00:05 | NUR ---
ON ASSESSMENT. I NOTICED PT'S BP WAS 75/54, 71/39, 69/34 RESPECTIVELY. NOTIFIED DAVID GIFFORD. ИРИНА WENT IN PT ROOM AND ASSESSED PT'S BP WHIC TURNED OUT TO BE SBP 0F 58. HE ORDERED BOLUS OF 500CC'S. ALSO ORDERED FOR PT TO BE TRANSFERED TO ICU FOR HYPOTENTION. WILL CALL REPORT TO ICU NURSE. PT DENIES ANY SOB AT THIS TIME. WILL CPOC.
--- NOTE | 2018-10-24 00:21 | NUR ---
PT ARRIVED IN ICU. MOVED OVER INTO ICU BED AND MONITOR LEADS ATTACHED. LOW BP OTHERWISE STABLE VS. WILL CONTINUE TO MONITOR
[2018-10-24 00:29] LABS: HEMATOCRIT 24.3 % (36.0-48.0); HEMOGLOBIN 8.4 g/dL (12-16); MCH 37.3 pg (26.0-34.0); MCHC 34.6 g/dL (31.0-37.0); MEAN PLATELET VOLUME 8.4 fL (7.4-10.4); NEUTROPHILS 73.8 % (40-80); PLATELET COUNT 164 10x3/uL (130-400); RBC 2.25 10x6/uL (4.00-5.40); RDW 18.4 % (11.5-14.5); WBC 4.1 10x3/uL (4.8-10.8)
[2018-10-24 00:38] LABS: ANION GAP 9.5 mmol/L (8-16); CALCIUM 7.6 mg/dL (8.5-10.1); CARBON DIOXIDE 25.3 mmol/L (21.0-32.0)
[2018-10-24 00:41] LABS: CREATININE - SERUM 0.9 mg/dL (0.6-1.3); POTASSIUM - SERUM 2.8 mmol/L (3.5-5.1)
--- NOTE | 2018-10-24 01:00 | NUR ---
PT COMPLAINS OF MID BACK PAIN. RESIDENTIAL ADVISOR CONTACTED AND ORDER RECEIVED. WILL CONTINUE TO MONITOR
--- NOTE | 2018-10-24 03:00 | NUR ---
PT REASSESSMENT COMPLETED. BLOOD PRESSURE STILL LOW. WILL CONTINUE TO MONITOR
[2018-10-24 03:52] LABS: BASOPHILS 0.5 % (0-2); EOSINOPHILS 3.8 % (0-7); HEMATOCRIT 24.3 % (36.0-48.0); HEMOGLOBIN 8.3 g/dL (12-16); IMMATURE GRANULOCYTES 0.5 % (0-5); LYMPHOCYTES 14.7 % (15-50); MCH 36.6 pg (26.0-34.0); MCHC 34.2 g/dL (31.0-37.0); MEAN PLATELET VOLUME 9.1 fL (7.4-10.4); MONOCYTES 11.8 % (2-11); NEUTROPHILS 68.7 % (40-80); PLATELET COUNT 169 10x3/uL (130-400); RBC 2.27 10x6/uL (4.00-5.40); RDW 18.5 % (11.5-14.5); WBC 4.2 10x3/uL (4.8-10.8)
[2018-10-24 04:03] LABS: ALKALINE PHOSPHATASE 108 U/L (46-116); BILIRUBIN - TOTAL 0.08 mg/dL (0.2-1.3); CALC OSMOLALITY 280 mosm/kg (275-300); CALCIUM 7.7 mg/dL (8.5-10.1); CARBON DIOXIDE 25.6 mmol/L (21.0-32.0); CHLORIDE - SERUM 112 mmol/L (98-107); CREATININE - SERUM 0.8 mg/dL (0.6-1.3); GLUCOSE 113 mg/dL (74-106); MAGNESIUM - SERUM 1.3 mg/dL (1.8-2.4); PHOSPHOROUS 3.4 mg/dL (2.5-4.9); SODIUM 142 mmol/L (136-145); UREA NITROGEN 4 mg/dL (7-18); eGFR NON AFRICAN AMERICAN 76 mL/min (90-120)
[2018-10-24 04:13] LABS: ALBUMIN 1.7 g/dL (3.4-5.0); ALT (SGPT) 19 U/L (10-68); POTASSIUM - SERUM 3.5 mmol/L (3.5-5.1); PROTEIN - SERUM 4.1 g/dL (6.4-8.2)
[2018-10-24 04:18] LABS: APTT 38.7 SECONDS (22.8-39.4); INR 1.06 (0.85-1.17); PROTIME 13.3 SECONDS (11.6-15.0)
--- NOTE | 2018-10-24 05:00 | NUR ---
PT GIVEN IV FLUID BOLUS TO IMPROVE BP. DR CASTAÑEDA NOTIFIED. ORDERS GIVEN. WILL CONTINUE TO MONITOR
--- NOTE | 2018-10-24 05:30 | NUR ---
BLOOD TRANSFUSION STARTED. PT TOLERATING WELL. WILL CONTINUE TO MONITOR
[2018-10-24 11:21] LABS: HEMATOCRIT 30.3 % (36.0-48.0); HEMOGLOBIN 10.5 g/dL (12-16)
--- NOTE | 2018-10-24 15:05 | MORECARE ---
CASE MANAGEMENT DISCHARGE SUMMARY PATIENT: EDWARD MURILLO UNIT: [id number] ADM DATE: 10/22/18 AGE: 68 : 51 SEX: F ROOM/BED: D.2308 AUTHOR: ANNABEL MARTINEZ PHYSICIAN: REFERRING PHYSICIAN: KERON CASTAÑEDA MD DATE OF SERVICE: 10/24/18 Discharge Plan Patient Name: EDWARD [facility]URILLO [facility] [facility] 1950 Planned Disposition: Home with Home Health Anticipated Discharge Date: Discharge Date: Expected LOS: Initial Reviewer: [email or web address] Initial Review Date: 10/24/2018 Generated: 10/24/18 4:05 pm DCPIA - Discharge Planning Initial Assessment Updated by [email or web address]: Felicita Florian on 10/24/18 3:01 pm * Is the patient Alert and Oriented? Yes * How many steps to enter\exit or inside your home? * PCP CASTANEDA * Pharmacy [facility] * Preadmission Environment Home with Family * ADLs Independent * Other Equipment WALKER, CANE, W/C SC, BSC * List name and contact numbers for known caregivers / representatives who currently or will assist patient after discharge: ZAY MURILLO - SPOUSE - [phone] * Verbal permission to speak to the caregivers and representatives has been obtained from the patient. Yes * Community resources currently utilized Home Health * Please name any agencies selected above. [facility]? * Additional services required to return to the preadmission environment? No * Can the patient safely return to the preadmission environment? Yes * Has this patient been hospitalized within the prior 30 days at any hospital? No Patient Name: EDWARD MURILLO Page 49810 at 1505 All edits/amendments must be made on the electronic document DICTATION DATE: 10/24/18 1505 POLICE JUDGE: SYLVAIN 10/24/18 1505 RPT#: [id number] DC DATE: STATUS: ADM IN [facility] [address] [place] [address] END OF REPORT
--- NOTE | 2018-10-24 15:43 | MORECARE ---
CASE MANAGEMENT DISCHARGE SUMMARY PATIENT: EDWARD MURILLO UNIT: [id number] ADM DATE: 10/22/18 AGE: 68 : 51 SEX: F ROOM/BED: D.2308 AUTHOR: ANNABEL MARTINEZ PHYSICIAN: REFERRING PHYSICIAN: KERON CASTAÑEDA MD DATE OF SERVICE: 10/24/18 Discharge Plan Patient Name: EDWARD MURILLO [facility] [facility] 1950 Planned Disposition: Home Anticipated Discharge Date: Discharge Date: Expected LOS: Initial Reviewer: [email or web address] Initial Review Date: 10/24/2018 Generated: 10/24/18 4:43 pm DCPIA - Discharge Planning Initial Assessment Updated by [email or web address]: Felicita Florian on 10/24/18 3:01 pm * Is the patient Alert and Oriented? Yes * How many steps to enter\exit or inside your home? * PCP CASTANEDA * [facility] * Preadmission Environment Home with Family * ADLs Independent * Other Equipment WALKER, CANE, W/C SC, BSC * List name and contact numbers for known caregivers / representatives who currently or will assist patient after discharge: ZAY MURILLO - SPOUSE - [phone] * Verbal permission to speak to the caregivers and representatives has been obtained from the patient. Yes * Community resources currently utilized Home Health * Please name any agencies selected above. [facility]? * Additional services required to return to the preadmission environment? No * Can the patient safely return to the preadmission environment? Yes * Has this patient been hospitalized within the prior 30 days at any hospital? No Last DP export: 10/24/18 2:05 p Patient Name: EDWARD MURILLO Page [id number] at 1543 All edits/amendments must be made on the electronic document DICTATION DATE: 10/24/181542 GEOGRAPHIC INFORMATION SYSTEM SURVEYOR: SYLVAIN 10/24/181542 RPT#: [id number] DC DATE: STATUS: ADM IN [facility] [address] [place] [address] END OF REPORT
--- NOTE | 2018-10-24 15:54 | MORECARE ---
CASE MANAGEMENT DISCHARGE SUMMARY PATIENT: EDWARD MURILLO UNIT: [id number] ADM DATE: 10/22/18 AGE: 68 : 51 SEX: F ROOM/BED: D.2308 AUTHOR: JUAN,DOC PHYSICIAN: REFERRING PHYSICIAN: KERON CASTAÑEDA MD DATE OF SERVICE: 10/24/18 Discharge Plan Patient Name: EDWARD MURILLO Facility: [facility]:[place] : 1950 Planned Disposition: Home Anticipated Discharge Date: Discharge Date: Expected LOS: Initial Reviewer: [email or web address] Initial Review Date: 10/24/2018 Generated: 10/24/18 4:54 pm Comments DCP- Discharge Planning Updated by [email or web address]: Felicita Florian on 10/24/18 2:[address] Patient Name: EDWARD MURILLO Admission Status: ER Accout number: [id number] Admission Date: 10-22-2018 : 1950 Admission Diagnosis: Attending: KERON CASTAÑEDA Current LOS: 2 Anticipated DC Date: Planned Disposition: Home Primary Insurance: MEDICARE A & B Discharge Planning Comments: CM met with patient to complete initial dc planning assessment. CM educated patient on the CM role and verbal consent given by patient to complete assessment. Patient lives at home with her where she is independent with her care. At discharge patient plans to return home and feels this is a safe discharge. CM discussed availability of home health, rehab services, and medical equipment. Patient stated she had HH but doesn't know which agency. CM looked at previous visits and patient had been discharged with [facility] in the past. CM called [facility] to see if patient was current with them. [facility] isn't current with patient. If Home Health is needed will need GEO signed. Patient denied known discharge needs at this time. CM will continue to follow and will assist as needed with dc plans/needs. Hemodialysis Patient Care Specialist: Felicita Florian DCPIA - Discharge Planning Initial Assessment Updated by [email or web address]: Felicita Florian on 10/24/18 3:01 pm * Is the patient Alert and Oriented? Yes * How many steps to enter\exit or inside your home? * PCP CASTANEDA * Pharmacy [facility] * Preadmission Environment Home with Family * ADLs Independent * Other Equipment WALKER, CANE, W/C SC, BSC * List name and contact numbers for known caregivers / representatives who currently or will assist patient after discharge: ZAY MURILLO - SPOUSE - [phone] * Verbal permission to speak to the caregivers and representatives has been obtained from the patient. Yes * Community resources currently utilized Home Health * Please name any agencies selected above. [facility]? * Additional services required to return to the preadmission environment? No * Can the patient safely return to the preadmission environment? Yes * Has this patient been hospitalized within the prior 30 days at any hospital? No Last DP export: 10/24/18 2:43 p Patient Name: EDWARD MURILLO Page 19779 at 1554 All edits/amendments must be made on the electronic document DICTATION DATE: 10/24/181553 ELOCUTION TEACHER: SYLVAIN 10/24/181553 RPT#: [id number] DC DATE: STATUS: ADM IN [facility] [address] [place] [address] END OF REPORT
[2018-10-24 16:31] LABS: HEMATOCRIT 35.3 % (36.0-48.0); HEMOGLOBIN 12.4 g/dL (12-16)
--- NOTE | 2018-10-24 19:00 | NUR ---
PT REPORT RECEIVED FROM DAY SHIFT NURSE. RESTING IN BED. WILL CONTINUE TO MONITOR
--- NOTE | 2018-10-24 21:00 | NUR ---
PT RESTING IN BED. NO COMPLAINTS NOTED AT THIS TIME. VSS. WILL CONTINUE TO MONITOR
[2018-10-24 22:31] LABS: HEMATOCRIT 29.6 % (36.0-48.0); HEMOGLOBIN 10.3 g/dL (12-16)
--- NOTE | 2018-10-24 23:00 | NUR ---
PT RESTING IN BED. AROUSES EASILY. VSS. WILL CONTINUE TO MONITOR
[2018-10-25] VITALS (16 sets, daily range): BP systolic 89–166; BP diastolic 50–103
--- NOTE | 2018-10-25 01:00 | NUR ---
PT RESTING IN BED. NO COMPLAINTS NOTED AT THIS TIME. VSS. WILL CONTINUE TO MONITOR
--- NOTE | 2018-10-25 03:00 | NUR ---
PT UP AT BEDSIDE COMMODE WITH ASSISTANCE FROM NURSE. TOLERATED WELL. VSS. WILL CONTINUE TO MONITOR
[2018-10-25 04:12] LABS: BASOPHILS 0.2 % (0-2); HEMATOCRIT 30.7 % (36.0-48.0); HEMOGLOBIN 10.6 g/dL (12-16); IMMATURE GRANULOCYTES 0.4 % (0-5); MCH 34.2 pg (26.0-34.0); MCHC 34.5 g/dL (31.0-37.0); MEAN PLATELET VOLUME 9.1 fL (7.4-10.4); MONOCYTES 8.2 % (2-11); NEUTROPHILS 76.2 % (40-80); PLATELET COUNT 178 10x3/uL (130-400); RDW 23.8 % (11.5-14.5)
[2018-10-25 04:17] LABS: WBC 5.3 10x3/uL (4.8-10.8)
[2018-10-25 04:23] LABS: CALC OSMOLALITY 280 mosm/kg (275-300); CALCIUM 7.6 mg/dL (8.5-10.1); CARBON DIOXIDE 24.8 mmol/L (21.0-32.0); CHLORIDE - SERUM 114 mmol/L (98-107); CREATININE - SERUM 0.7 mg/dL (0.6-1.3); GLUCOSE 98 mg/dL (74-106); MAGNESIUM - SERUM 1.2 mg/dL (1.8-2.4); PHOSPHOROUS 2.9 mg/dL (2.5-4.9); POTASSIUM - SERUM 3.7 mmol/L (3.5-5.1); SODIUM 143 mmol/L (136-145); eGFR NON AFRICAN AMERICAN 88 mL/min (90-120)
[2018-10-25 04:24] LABS: UREA NITROGEN 1 mg/dL (7-18)
--- NOTE | 2018-10-25 05:00 | NUR ---
PT RESTING IN BED. VSS. WILL CONTINUE TO MONITOR
--- NOTE | 2018-10-25 07:00 | NUR ---
REC'D REPORT AND RESUMED CARE, SLEEPING AROUSABLE TO VERBAL, STIMULI, ORIENTED, DENIES PAIN ASSESSMENT COMPLETED PER FLOWSHEET, CALL LIGHT IN REACH NO NEEDS AT THIS TIME
--- NOTE | 2018-10-25 07:45 | NUR ---
OOB TO BSC, 500 CC URINE TO PAIN, CHG BATH GIVEN, BTB WITH CLAY ASSIST, CALL LIGHT IN REACH, NO NEEDS AT THIS TIME
--- NOTE | 2018-10-25 09:00 | NUR ---
MORNING MEDS GIVEN PER APR FLOWSHEET
--- NOTE | 2018-10-25 09:44 | NUR ---
Nutrition follow-up: Pts diet advanced to full liquids per Dr. Voice SILVANA clements ~60% of meals Labs reviewed Wt: 119# Will offer nutritional supplements. RDN following.
[2018-10-25 10:05] LABS: HEMATOCRIT 34.4 % (36.0-48.0); HEMOGLOBIN 12.1 g/dL (12-16)
--- NOTE | 2018-10-25 11:00 | NUR ---
RESTING WITH NO SIGNS OF DISTRESS, VSS, NO AUCTE CHANGE FROM PREVIOUS ASSESSMENT
--- NOTE | 2018-10-25 12:00 | NUR ---
SPOUSE AT BEDSIDE, STATUS UPDATED, AWAITNG EGD TO BE COMPLETED, NO OTHER NEEDS AT THIS TIME
--- NOTE | 2018-10-25 13:20 | NUR ---
PT UPTO BSC, 150CC UOP,
--- NOTE | 2018-10-25 15:30 | NUR ---
DR. ACUNA AT BEDSIDE, EGD PERFORMED, PT TOLERATED WELL, OK TO TRANSFER TO FLOOR
[2018-10-25 16:24] LABS: HEMATOCRIT 32.3 % (36.0-48.0); HEMOGLOBIN 11.5 g/dL (12-16)
--- NOTE | 2018-10-25 17:30 | NUR ---
FAMILY CALLED GIVEN UPDATE NO NEW CHANGES PT RESTING COMFORTABLY WILL CONTINUETO OMONITOR
--- NOTE | 2018-10-25 19:00 | NUR ---
PT REPORT RECEIVED FROM DAY SHIFT NURSE. ORDERS TO TRANSFER TO ROOM 1205
--- NOTE | 2018-10-25 19:30 | NUR ---
REPORT CALLED TO [facility] FOR ROOM 1202. PT READY FOR TRANSFER
--- NOTE | 2018-10-25 19:45 | NUR ---
PT TRANSFERRED TO MED 3. TOLERATED WELL. REPORT WAS GIVEN TO KAILEY AT 1930.
--- NOTE | 2018-10-25 19:45 | NUR ---
RECEIVED PATIENT VIA W/C FROM DYLAN STARK. PATIENT IS A/OX4, TRANSFERED WITH STANDBY ASSIST FROM W/C TO BED. PATIENT TOLERATED WELL. IV TO LT FA, NS INFUSING @100ML/HR, DRSG C/D/I, IV PATENT. NO S/S OF DISTRESS OBSERVED. RR EVEN AND UNLABORED ON ROOM AIR. V/S T: 99.3 BP: 133/77 P: 95 R: 20 O2: 97% PATIENT DENIES FURTHER NEEDS AT THIS TIME. CL IN REACH, BED LOCKED AND LOWERED. WILL CTM.
--- NOTE | 2018-10-25 20:50 | NUR ---
HS MEDS ADMINISTERED. FRESH ICE WATER AND RIDDHI CRACKERS GIVEN. PATIENT DENIES FURTHER NEEDS AT THIS TIME. CL IN REACH. WILL CTM.
[2018-10-26] VITALS: BP 144/92
--- NOTE | 2018-10-26 02:38 | NUR ---
I have reviewed this patient and I concur with the Shift Assessment completed by the Licensed Practical Nurse today this shift.
[2018-10-26 04:48] LABS: BASOPHILS 0.4 % (0-2); EOSINOPHILS 6.5 % (0-7); HEMATOCRIT 29.5 % (36.0-48.0); HEMOGLOBIN 10.2 g/dL (12-16); IMMATURE GRANULOCYTES 0.2 % (0-5); MCH 34.3 pg (26.0-34.0); MCHC 34.6 g/dL (31.0-37.0); MCV 99.3 fL (80.0-100.0); MEAN PLATELET VOLUME 8.9 fL (7.4-10.4); MONOCYTES 7.7 % (2-11); NEUTROPHILS 74.2 % (40-80); PLATELET COUNT 183 10x3/uL (130-400); RBC 2.97 10x6/uL (4.00-5.40); RDW 23.6 % (11.5-14.5); WBC 5.4 10x3/uL (4.8-10.8)
[2018-10-26 05:07] LABS: CALC OSMOLALITY 288 mosm/kg (275-300); CALCIUM 7.7 mg/dL (8.5-10.1); CARBON DIOXIDE 23.2 mmol/L (21.0-32.0); CHLORIDE - SERUM 115 mmol/L (98-107); CREATININE - SERUM 0.8 mg/dL (0.6-1.3); GLUCOSE 120 mg/dL (74-106); MAGNESIUM - SERUM 1.1 mg/dL (1.8-2.4); SODIUM 147 mmol/L (136-145); UREA NITROGEN 1 mg/dL (7-18); eGFR NON AFRICAN AMERICAN 76 mL/min (90-120)
[2018-10-26 05:10] LABS: PHOSPHOROUS 2.1 mg/dL (2.5-4.9); POTASSIUM - SERUM 3.1 mmol/L (3.5-5.1)
[2018-10-26 07:23] VITALS: BP 144/89
--- NOTE | 2018-10-26 07:30 | NUR ---
PT RESTING, EYES CLOSED. ASSESSMENT COMPLETE. LINENS AND GOWN CHANGED. IV LEAKING UPON ASSESSMENT. FLUIDS PAUSED. WILL TRY TO RESITE. PT DENIES PAIN OR NEEDS AT THIS TIME. RR EVEN AND UNLABORED. PT ALERT AND ORIENTED BUT SLOW TO RESPOND OCCASSIONALLY. VSS AT THIS TIME. WILL CONTINUE TO MONITOR.
--- NOTE | 2018-10-26 10:45 | NUR ---
IV D/C WITH WITH CATHETER TIP INTACT. RESITED 22G TO RIGHT FOREARM. INFUSION RESTARTED.
--- NOTE | 2018-10-26 11:10 | NUR ---
I have reviewed this patient and I concur with the Shift Assessment completed by the Licensed Practical Nurse today this shift.
[2018-10-26 12:00] VITALS: BP 114/74
--- NOTE | 2018-10-26 12:57 | NUR ---
Nutrition Follow Up: Interview: Patient stated her appetite was good. She denied N/V/D/C and chewing/swallowing issues. She stated she will try chocolate ensure. Patient Dx with severe malnutrition of acute illness. Diet: Regular; Ensure w/ Meals PO intake: 50% per 7 meals Wt: 119 lbs BM: x 1 on 10/26 Meds: PROCALAMINE @ 50 ml/hr, NaCl @ 100 ml/hr, Protonix, Mag Ox, KPO4, KCl, Vit D Labs: Na-147(H), K-3.1(L), Chloride-115(H), BUN-1(L), Calcium-7.7(L), PO4-1.1(L) Goals: PO intake >/= 75% for meals, tolerate nutritional supplement, maintain skin integrity, stable wt DHS Will continue to monitor closely Clinical Dietitian Following
[2018-10-26 15:37] VITALS: BP 114/68
--- NOTE | 2018-10-26 19:00 | NUR ---
REPORT RECEIVED, WILL CONTINUE POC. PATIENT IS A/OX4, UP WITH ASSIST. SITTING UP IN BED WATCHING TV. NO S/S OF DISTRESS OBSERVED, RR EVEN AND UNLABORED. PATIENT DENIES NEEDS AT THIS TIME. IV TO RT FA INFUSING PROCAL AND NS, PATENT, DRSG C/D/I. CL IN REACH, BED LOCKED AND LOWERED. WILL CTM.
--- NOTE | 2018-10-26 19:45 | NUR ---
PATIENT C/O BACK PAIN. PRN TYLENOL ADMINISTERED. WILL CTM.
[2018-10-26 20:00] VITALS: BP 106/70
[2018-10-26 20:49] LABS: MAGNESIUM - SERUM 2.2 mg/dL (1.8-2.4)
--- NOTE | 2018-10-26 21:31 | NUR ---
LABS BACK MAG 2.2 PHOS 3.0, NO COVERAGE NEEDED.
[2018-10-27] VITALS: BP 95/51
--- NOTE | 2018-10-27 07:20 | NUR ---
REPORT RECIEVED. PT SITTING UP IN BED EATING BREAKFAST. PT HAS A R FA PIV INFUSING PROCAL @ 50 AND NS @ 100. RR EVEN AND UNLABORED. NO DISTRESS NOTED. BED LOCKED AND IN LOWEST POSITION. CALL LIGHT WITHIN REACH. WILL CTM
[2018-10-27 07:47] LABS: BASOPHILS 0.1 % (0-2); EOSINOPHILS 4.3 % (0-7); HEMATOCRIT 28.7 % (36.0-48.0); HEMOGLOBIN 9.9 g/dL (12-16); IMMATURE GRANULOCYTES 0.1 % (0-5); LYMPHOCYTES 8.2 % (15-50); MCH 34.6 pg (26.0-34.0); MCHC 34.5 g/dL (31.0-37.0); MCV 100.3 fL (80.0-100.0); NEUTROPHILS 78.3 % (40-80); RBC 2.86 10x6/uL (4.00-5.40); RDW 23.4 % (11.5-14.5)
[2018-10-27 07:51] LABS: PLATELET COUNT 139 10x3/uL (130-400); WBC 6.9 10x3/uL (4.8-10.8)
[2018-10-27 08:07] LABS: CALCIUM 7.6 mg/dL (8.5-10.1); CARBON DIOXIDE 24.6 mmol/L (21.0-32.0); CHLORIDE - SERUM 114 mmol/L (98-107); GLUCOSE 128 mg/dL (74-106); MAGNESIUM - SERUM 2.2 mg/dL (1.8-2.4); PHOSPHOROUS 2.9 mg/dL (2.5-4.9); POTASSIUM - SERUM 3.4 mmol/L (3.5-5.1); SODIUM 145 mmol/L (136-145)
[2018-10-27 08:10] VITALS: BP 118/72
[2018-10-27 08:13] LABS: CALC OSMOLALITY 287 mosm/kg (275-300); CREATININE - SERUM 0.5 mg/dL (0.6-1.3); UREA NITROGEN 4 mg/dL (7-18); eGFR NON AFRICAN AMERICAN > 90 mL/min (90-120)
--- NOTE | 2018-10-27 09:05 | NUR ---
UPON ENTERING THE ROOM PT HAS HAD A LARGE BM. BM WAS BLACK IN COLOR AND LOOKED LIKE COFFEE GROUNDS. CLEANED PT AND CHANGED BEDDING. WILL CTM
--- NOTE | 2018-10-27 10:52 | NUR ---
UPON ENTERING THE ROOM THE PT HAD A LARGE BM. BM WAS RUNNY, BLACK AND TARRY. NO ODOR. PT STATES SHE DOESNT KNOW WHAT IS WRONG WITH HER TODAY..SHE SAYS SHE USUALLY DOESNT HAVE ACCIDENTS ON HERSELF LIKE SHE HAS THIS MORNING. WILL CTM
[2018-10-27 13:00] LABS: HEMATOCRIT 30.2 % (36.0-48.0); HEMOGLOBIN 10.3 g/dL (12-16)
--- NOTE | 2018-10-27 15:10 | NUR ---
I have reviewed this patient and I concur with the Shift Assessment completed by the Licensed Practical Nurse today this shift.
[2018-10-27 18:24] LABS: HEMOGLOBIN 10.2 g/dL (12-16)
[2018-10-27 19:44] VITALS: BP 129/80
--- NOTE | 2018-10-27 20:06 | NUR ---
PATIENT RESTING IN BED WITH NO S/S OF DISTRESS. ASSISTED PATIENT TO THE RESTROOM TO VOID. ADMINISTERED MEDS PER ORDERS. PATIENT DENIES OTHER NEEDS AT THIS TIME. ENCOURAGED THE PATIENT TO CALL IF SHE HAS NEEDS. WILL CONTINUE TO MONITOR.
[2018-10-27 23:46] VITALS: BP 106/58
[2018-10-28 00:44] LABS: HEMOGLOBIN 9.1 g/dL (12-16)
[2018-10-28 04:33] VITALS: BP 152/94
[2018-10-28 04:35] LABS: BASOPHILS 0.2 % (0-2); HEMATOCRIT 27.8 % (36.0-48.0); HEMOGLOBIN 9.7 g/dL (12-16); IMMATURE GRANULOCYTES 0.3 % (0-5); LYMPHOCYTES 10.2 % (15-50); MCH 35.1 pg (26.0-34.0); MCHC 34.9 g/dL (31.0-37.0); MCV 100.7 fL (80.0-100.0); MEAN PLATELET VOLUME 9.1 fL (7.4-10.4); MONOCYTES 7.9 % (2-11); NEUTROPHILS 76.4 % (40-80); PLATELET COUNT 150 10x3/uL (130-400); RBC 2.76 10x6/uL (4.00-5.40)
[2018-10-28 04:48] LABS: CALC OSMOLALITY 284 mosm/kg (275-300); CALCIUM 7.8 mg/dL (8.5-10.1); CARBON DIOXIDE 24.5 mmol/L (21.0-32.0); CHLORIDE - SERUM 114 mmol/L (98-107); CREATININE - SERUM 0.7 mg/dL (0.6-1.3); GLUCOSE 119 mg/dL (74-106); POTASSIUM - SERUM 3.8 mmol/L (3.5-5.1); SODIUM 144 mmol/L (136-145); UREA NITROGEN 5 mg/dL (7-18); eGFR NON AFRICAN AMERICAN 88 mL/min (90-120)
--- NOTE | 2018-10-28 06:28 | NUR ---
PATIENT HAD A SMALL BM
--- NOTE | 2018-10-28 07:05 | NUR ---
REPORT RECIEVED. UPON ENTERING THE ROOM THE PTS PIV HAD BECOME DISLODGED. DYLAN SOLARES ATTEMPTED X2 TO OBTAIN A NEW PIV BUT WAS UNSUCCESSFUL. WILL HAVE SOMEONE ELSE ATEMPT. RR EVEN AND UNLABORED. NO DISTRESS NOTED. CALL LIGHT WITHIN REACH, BED LOCKED AND IN LOWEST POSITION. WILL CTM
[2018-10-28 08:06] VITALS: BP 108/73
--- NOTE | 2018-10-28 09:23 | NUR ---
UPON ENTERING THE ROOM THE PT HAD A LARGE BM. BM WAS BLACK TARRY WITHOUT SMELL. CLEANED PT AND RETURNED TO BED. WILL CTM
[2018-10-28] MEDS ORDERED: CARAFATE1 G PO (09:56)
[2018-10-28] MEDS ORDERED: PROTONIX40 MG PO (09:57)
[2018-10-28 12:31] LABS: HEMATOCRIT 30.9 % (36.0-48.0); HEMOGLOBIN 10.6 g/dL (12-16)
--- NOTE | 2018-10-28 12:58 | NUR ---
UPON ENTERING THE ROOM PT HAS A MEDIUM SIZE BM. BM WAS BLACK AND TARRY.
--- NOTE | 2018-10-28 13:15 | NUR ---
rehab prescreen: thank you for this eval, this pt could make a good canaidiate for IRF, but would like to make sure she is stable with the low blood count and dark tarry stools. Will check in on her tomorrow and see if problem has resolved. once again thank you for this eval. reinier benton lpn clinical liasion
[2018-10-28 18:41] LABS: HEMATOCRIT 28.1 % (36.0-48.0); HEMOGLOBIN 9.8 g/dL (12-16)
[2018-10-28 19:20] VITALS: BP 102/57
--- NOTE | 2018-10-28 19:20 | NUR ---
PATIENT RESTING IN BED AND DENIES NEEDS AT THIS TIME. VSS. BED IN LOWEST POSITION AND CALL LIGHT WITHIN REACH. ENCOURAGED THE PATIENT TO CALL IF SHE HAS NEEDS. WILL CONTINUE TO MONITOR.
--- NOTE | 2018-10-28 19:24 | MORECARE ---
CASE MANAGEMENT DISCHARGE SUMMARY PATIENT: EDWARD MURILLO UNIT: [id number] ADM DATE: 10/22/18 AGE: 68 : 51 SEX: F ROOM/BED: D.1202 AUTHOR: JUAN,DOC PHYSICIAN: REFERRING PHYSICIAN: KERON CASTAÑEDA MD DATE OF SERVICE: 10/28/18 Discharge Plan Patient Name: EDWARD MURILLO Facility: [facility]:[place] : 1950 Planned Disposition: Home Anticipated Discharge Date: Discharge Date: Expected LOS: Initial Reviewer: [email or web address] Initial Review Date: 10/24/2018 Generated: 10/28/18 8:24 pm Comments DCP- Discharge Planning Updated by [email or web address]: Carmen Johnston on 10/28/18 6:[address] LATE ENTRY 0950 CM RECEIVED A CALL REGARDING DISCHARGE FOR TODAY. THE PATIENT'S CAME TO THE DESK TO VOICE CONCERNS REGARDING HIS 'S WEAKNESS.HE WANTS HER TO GO TO REHAB IF POSSIBLE. CM REVIEWED MD NOTES. THE DOCTOR HAD STATED THE PATIENT HAD NO FURTHER STOOLS. WHEN CM DISCUSSED CASE WITH THE PRIMARY NURSE, SHE STATED THE PATIENT HAD A "VERY LARGE BLACK TARRY STOOL" THIS AM THAT WAS WITNESSED BY THE NURSE. CM ADVISED THE NURSE TO NOTIFY DR CASTAÑEDA. CM MET WITH THE PATIENT AND HER . SHE WANTS TO GO HOME BUT ADMITS SHE IS VERY WEAK. DR CASTAÑEDA WILL MONITOR AN ADDITIONAL DAY. REHAB PRESCREEN ORDERED. PATIENT AMBULATED 130 FEET W/ 35% AND WHEELED WALKER. PHYSICAL THERAPY REPORTS SHE IS VERY UNSTEADY. DCP- Discharge Planning Updated by [email or web address]: Felicita Florian on 10/24/18 2:[address] Patient Name: EDWARD MURILLO Admission Status: ER Accout number: [id number] Admission Date: 10-22-2018 : 1950 Admission Diagnosis: Attending: KERON CASTAÑEDA Current LOS: 2 Anticipated DC Date: Planned Disposition: Home Primary Insurance: MEDICARE A & B Discharge Planning Comments: CM met with patient to complete initial dc planning assessment. CM educated patient on the CM role and verbal consent given by patient to complete assessment. Patient lives at home with her where she is independent with her care. At discharge patient plans to return home and feels this is a safe discharge. CM discussed availability of home health, rehab services, and medical equipment. Patient stated she had HH but doesn't know which agency. CM looked at previous visits and patient had been discharged with [facility] in the past. CM called [facility] to see if patient was current with [facility]. [facility] isn't current with patient. If Home Health is needed will need GEO signed. Patient denied known discharge needs at this time. CM will continue to follow and will assist as needed with dc plans/needs. Recreation Engineer: Felicita Florian DCPIA - Discharge Planning Initial Assessment Updated by [email or web address]: Felicita Florian on 10/24/18 3:01 pm * Is the patient Alert and Oriented? Yes * How many steps to enter\\exit or inside your home? * PCP CASTANEDA * Pharmacy [facility] * Preadmission Environment Home with Family * ADLs Independent * Other Equipment WALKER, CANE, W/C SC, BSC * List name and contact numbers for known caregivers / representatives who currently or will assist patient after discharge: ZAY MURILLO - SPOUSE - [phone] * Verbal permission to speak to the caregivers and representatives has been obtained from the patient. Yes * Community resources currently utilized Home Health * Please name any agencies selected above. [facility]? * Additional services required to return to the preadmission environment? No * Can the patient safely return to the preadmission environment? Yes * Has this patient been hospitalized within the prior 30 days at any hospital? No Last DP export: 10/24/18 2:54 p Patient Name: EDWARD MURILLO Page 48564 at 1924 All edits/amendments must be made on the electronic document DICTATION DATE: 10/28/181923 ROLL HANDLER: SYLVAIN 10/28/181923 RPT#: [id number] DC DATE: STATUS: ADM IN [facility] [address] [place] [address] END OF REPORT
[2018-10-28 23:18] VITALS: BP 108/59
--- NOTE | 2018-10-29 00:05 | NUR ---
ASSISTED PATIENT TO AND FROM RESTROOM
[2018-10-29 01:27] LABS: HEMATOCRIT 28.4 % (36.0-48.0); HEMOGLOBIN 9.8 g/dL (12-16)
--- NOTE | 2018-10-29 02:29 | NUR ---
ASSISTED PATIENT TO AND FROM [address]
[2018-10-29 03:59] VITALS: BP 146/87
[2018-10-29 06:53] LABS: BASOPHILS 0.2 % (0-2); EOSINOPHILS 4.8 % (0-7); HEMATOCRIT 28.3 % (36.0-48.0); HEMOGLOBIN 9.7 g/dL (12-16); IMMATURE GRANULOCYTES 0.2 % (0-5); LYMPHOCYTES 11.5 % (15-50); MCH 34.5 pg (26.0-34.0); MCHC 34.3 g/dL (31.0-37.0); MCV 100.7 fL (80.0-100.0); MEAN PLATELET VOLUME 9.1 fL (7.4-10.4); MONOCYTES 7.6 % (2-11); NEUTROPHILS 75.7 % (40-80); PLATELET COUNT 153 10x3/uL (130-400); RBC 2.81 10x6/uL (4.00-5.40); RDW 22.2 % (11.5-14.5); WBC 5.6 10x3/uL (4.8-10.8)
[2018-10-29 07:03] LABS: CALC OSMOLALITY 288 mosm/kg (275-300); CALCIUM 7.9 mg/dL (8.5-10.1); CARBON DIOXIDE 24.4 mmol/L (21.0-32.0); CHLORIDE - SERUM 114 mmol/L (98-107); CREATININE - SERUM 0.6 mg/dL (0.6-1.3); GLUCOSE 117 mg/dL (74-106); POTASSIUM - SERUM 3.8 mmol/L (3.5-5.1); SODIUM 146 mmol/L (136-145); UREA NITROGEN 4 mg/dL (7-18); eGFR NON AFRICAN AMERICAN > 90 mL/min (90-120)
--- NOTE | 2018-10-29 07:10 | NUR ---
REPORT RECEIVED FROM THERAPY TECH AND PATIENT CARE ASSUMED. PATIENT LAYING IN BED WITH EYES CLOSED AND BREATHING EVENLY. WILL CONTINUE WITH PLAN OF CARE. SR UP X 2 BED IN LOW POSITION AND CALL LIGHT IN REACH.
--- NOTE | 2018-10-29 07:40 | NUR ---
PATIENT UP TO BR. HAD MODERATE LOOSE DARK GREEN STOOL. NO BLACK OR TARRY NOTED. PATIENT CLEANED UP AND UP TO BS CHAIR. PATIENT DENIES ANY NEEDS OR PAIN. TV TURNED ON. CALL LIGHT IN LAP. BROUGHT FRESH CUP OF COFFEE.
--- NOTE | 2018-10-29 07:59 | NUR ---
PATIENT UP TO BR . HAD MODERATE , BLACK TARRY STOOL. PATIENT SITTING UP IN BS CHAIR. DENIES ANY NEEDS OR PAIN. WILL CONTINUE WITH PLAN OF CARE. CALL LIGHT IN REACH.
--- NOTE | 2018-10-29 09:25 | NUR ---
PATIENT UP TO BR. SMALL AMOUNT LOOSE DARK GREEN STOOL. PATIENT CLEANED ANJD BACK TO BS CHAIR. COMPLETE LINEN CHANGED. PATIENT IS STABLE AND VSS. PATIENT SPOKE WITH ON PHONE AND NOW WATCHING TV. PATIENT DENIES ANY NEEDS OR PAIN. WILL CONTINUE TO MONITOR. CALL LIGHT IN REACH.
--- NOTE | 2018-10-29 11:14 | NUR ---
PATIENT IS STABLE AND VSS. AT BS. PATIENT WALKED EARLIER WITH PT AND TOLERATED WELL. PATIENT DENIES ANY NEEDS OR PAIN. WILL CONTINUE TO MONITOR. SR UP X 2 BED IN LOW POSITION AND CALL LIGHT IN REACH.
--- NOTE | 2018-10-29 12:06 | NUR ---
DR GOODEN IN ROOM. NEW ORDERS RECEVIED.
--- NOTE | 2018-10-29 14:56 | NUR ---
PATIENT UNDER WENT REHAB CONSULT. PATIENT ACCEPTED TO ROOM 1111B. PER DR GOODEN CONSULT PAGE SENT TO DR ELLIS FOR LUNG MASS. SPOKE WITH DAVID RICO. PATIENT NOT TO BE TRANSFERRED TO REHAB UNTIL DR ELLIS HAS SEEN PATIENT AND IF ANY NEW ORDERS OR TESTS RECEIVED FROM HIM. SPOKE WITH DAVIE IN REHAB AND NOTIFIED THAT TRANSFER ON HOLD.
--- NOTE | 2018-10-29 16:09 | NUR ---
DR ELLIS ON UNIT . PATIENT IS TO BE SEEN OUTPATIENT WHEN DC/D AND GET PET SCAN. DR ELLIS STATED OK TO GO TO REHAB. SPOKE WITH DAVID RICO. NEW ORDERS RECEIVED FOR DC. PATIENT TO GO TO ROOM 1111B. INFORMED AND PATIENT OF TRANSFER.
--- NOTE | 2018-10-29 17:01 | MORECARE ---
CASE MANAGEMENT DISCHARGE SUMMARY PATIENT: EDWARD MURILLO UNIT: [id number] ADM DATE: 10/22/18 AGE: 68 : 51 SEX: F ROOM/BED: D.1202 AUTHOR: JUAN,DOC PHYSICIAN: REFERRING PHYSICIAN: KERON CASTAÑEDA MD DATE OF SERVICE: 10/29/18 Discharge Plan Patient Name: EDWARD MURILLO Facility: [facility]:[place] : 1950 Planned Disposition: Inpatient Rehab Anticipated Discharge Date: Discharge Date: Expected LOS: Initial Reviewer: [email or web address] Initial Review Date: 10/24/2018 Generated: 10/29/18 6:00 pm Comments DCP- Discharge Planning Updated by [email or web address]: Felicita Florian on 10/29/18 4:[address] Patient Name: EDWARD MURILLO Encounter No: [id number] : 1950 Primary Insurance: MEDICARE A & B Anticipated DC Date: Planned Disposition: Inpatient Rehab [facility] External Planned Provider: : D/C IMM SIGNED 10/29/18 @ 1635 DCP follow-up note: Patient and family in agreement with discharge plan. No changes to plan. Case management will follow and assist as needed. Felicita Florian DCP- Discharge Planning Updated by [email or web address]: Carmen Johnston on 10/28/18 6:[address] LATE ENTRY 0950 CM RECEIVED A CALL REGARDING DISCHARGE FOR TODAY. THE PATIENT'S CAME TO THE DESK TO VOICE CONCERNS REGARDING HIS 'S WEAKNESS.HE WANTS HER TO GO TO REHAB IF POSSIBLE. CM REVIEWED MD NOTES. THE DOCTOR HAD STATED THE PATIENT HAD NO FURTHER STOOLS. WHEN CM DISCUSSED CASE WITH THE PRIMARY NURSE, SHE STATED THE PATIENT HAD A "VERY LARGE BLACK TARRY STOOL" THIS AM THAT WAS WITNESSED BY THE NURSE. CM ADVISED THE NURSE TO NOTIFY DR CASTAÑEDA. CM MET WITH THE PATIENT AND HER . SHE WANTS TO GO HOME BUT ADMITS SHE IS VERY WEAK. DR CASTAÑEDA WILL MONITOR AN ADDITIONAL DAY. REHAB PRESCREEN ORDERED. PATIENT AMBULATED 130 FEET W/ 35% AND WHEELED WALKER. PHYSICAL THERAPY REPORTS SHE IS VERY UNSTEADY. DCP- Discharge Planning Updated by [email or web address]: Felicita Florian on 10/24/18 2:[address] Patient Name: EDWARD MURILLO Admission Status: ER Accout number: [id number] Admission Date: 10-22-2018 : 1950 Admission Diagnosis: Attending: KERON CASTAÑEDA Current LOS: 2 Anticipated DC Date: Planned Disposition: Home Primary Insurance: MEDICARE A & B Discharge Planning Comments: CM met with patient to complete initial dc planning assessment. CM educated patient on the CM role and verbal consent given by patient to complete assessment. Patient lives at home with her where she is independent with her care. At discharge patient plans to return home and feels this is a safe discharge. CM discussed availability of home health, rehab services, and medical equipment. Patient stated she had HH but doesn't know which agency. CM looked at previous visits and patient had been discharged with [facility] in the past. CM called [facility] to see if patient was current with them. [facility] isn't current with patient. If Home Health is needed will need GEO signed. Patient denied known discharge needs at this time. CM will continue to follow and will assist as needed with dc plans/needs. Advanced Practice Psychiatric Nurse: Felicita Florian DCPIA - Discharge Planning Initial Assessment Updated by [id number]: Felicita Florian on 10/24/18 3:01 pm * Is the patient Alert and Oriented? Yes * How many steps to enter\\exit or inside your home? * PCP CASTANEDA * Pharmacy [facility] * Preadmission Environment Home with Family * ADLs Independent * Other Equipment WALKER, CANE, W/C SC, BSC * List name and contact numbers for known caregivers / representatives who currently or will assist patient after discharge: ZAY MURILLO - SPOUSE - [phone] * Verbal permission to speak to the caregivers and representatives has been obtained from the patient. Yes * Community resources currently utilized Home Health * Please name any agencies selected above. [facility]? * Additional services required to return to the preadmission environment? No * Can the patient safely return to the preadmission environment? Yes * Has this patient been hospitalized within the prior 30 days at any hospital? No Coverage Notice Reviewer: [id number] - Felicita Florian Notice Issued Date-Time: 10/29/2018 16:35 Notice Type: IM Discharge Notice Notice Delivered To: Patient Relationship to Patient: Self Environmental Sampler Name: Delivery Method: HAND - Hand Delivered Janent Days: Prior Verbal Notification: Recipient Understood Notice: Yes Recipient Signature: Yes Med Rec Note Co-signed by Attending: Coverage Notice Comment: Last DP export: 10/28/18 6:24 p Patient Name: EDWARD MURILLO Page [phone] at 1701 All edits/amendments must be made on the electronic document DICTATION DATE: 10/29/181699 COLLECTOR OF PORT: SYLVAIN 10/29/181699 RPT#: [id number] DC DATE: STATUS: ADM IN [facility] [address] [place] [address] END OF REPORT
--- NOTE | 2018-10-29 17:17 | NUR ---
PATIENT IS STABLE AND VSS. ORDERS RECIEVED FOR DCD TO REHAB. PATIENT TO GO ROOM 111B. REPORT CALLED TO [facility] IN REHAB. WILL TRANSPORT PATIENT VIA .
[2018-10-29] MEDS ORDERED: CYMBALTA60 MG PO (19:29)
[2018-10-29] MEDS ORDERED: FLUTICASONE PRO16 GM NASAL (19:30)
[2018-10-29] MEDS ORDERED: NEURONTIN 300300 MG PO (19:31)
[2018-10-29] MEDS ORDERED: CLARITIN 10 MG10 MG PO (19:32)
[2018-10-29] MEDS ORDERED: ATIVAN0.5 MG PO (19:33)
--- NOTE | 2018-10-30 16:19 | MORECARE ---
CASE MANAGEMENT DISCHARGE SUMMARY PATIENT: EDWARD MURILLO UNIT: [id number] ADM DATE: 10/22/18 AGE: 68 : 51 SEX: F ROOM/BED: D.1202 AUTHOR: JUAN,DOC PHYSICIAN: REFERRING PHYSICIAN: KERON CASTAÑEDA MD DATE OF SERVICE: 10/30/18 Discharge Plan Patient Name: EDWARD MURILLO Facility: [facility]:[place] : 1950 Planned Disposition: Inpatient Rehab Anticipated Discharge Date: Discharge Date: 10/29/2018 Expected LOS: Initial Reviewer: [email or web address] Initial Review Date: 10/24/2018 Generated: 10/30/18 5:19 pm Comments DCP- Discharge Planning Updated by [id number]: Felicita Florian on 10/29/18 4:[address] Patient Name: EDWARD MURILLO Encounter No: [id number] : 1950 Primary Insurance: MEDICARE A & B Anticipated DC Date: Planned Disposition: Inpatient Rehab [facility] External Planned Provider: : D/C IMM SIGNED 10/29/18 @ 1635 DCP follow-up note: Patient and family in agreement with discharge plan. No changes to plan. Case management will follow and assist as needed. Felicita Florian DCP- Discharge Planning Updated by [email or web address]: Carmen Johnston on 10/28/18 6:[address] LATE ENTRY 0950 CM RECEIVED A CALL REGARDING DISCHARGE FOR TODAY. THE PATIENT'S CAME TO THE DESK TO VOICE CONCERNS REGARDING HIS 'S WEAKNESS.HE WANTS HER TO GO TO REHAB IF POSSIBLE. ISABELA REVIEWED MD NOTES. THE DOCTOR HAD STATED THE PATIENT HAD NO FURTHER STOOLS. WHEN CM DISCUSSED CASE WITH THE PRIMARY NURSE, SHE STATED THE PATIENT HAD A "VERY LARGE BLACK TARRY STOOL" THIS AM THAT WAS WITNESSED BY THE NURSE. CM ADVISED THE NURSE TO NOTIFY DR CASTAÑEDA. CM MET WITH THE PATIENT AND HER . SHE WANTS TO GO HOME BUT ADMITS SHE IS VERY WEAK. DR CASTAÑEDA WILL MONITOR AN ADDITIONAL DAY. REHAB PRESCREEN ORDERED. PATIENT AMBULATED 130 FEET W/ 35% AND WHEELED WALKER. PHYSICAL THERAPY REPORTS SHE IS VERY UNSTEADY. DCP- Discharge Planning Updated by [email or web address]: Felicita Florian on 10/24/18 2:[address] Patient Name: EDWARD MURILLO Admission Status: ER Accout number: [id number] Admission Date: 10-22-2018 : 1950 Admission Diagnosis: Attending: KERON CASTAÑEDA Current LOS: 2 Anticipated DC Date: Planned Disposition: Home Primary Insurance: MEDICARE A & B Discharge Planning Comments: CM met with patient to complete initial dc planning assessment. CM educated patient on the CM role and verbal consent given by patient to complete assessment. Patient lives at home with her where she is independent with her care. At discharge patient plans to return home and feels this is a safe discharge. CM discussed availability of home health, rehab services, and medical equipment. Patient stated she had HH but doesn't know which agency. CM looked at previous visits and patient had been discharged with [facility] in the past. CM called [facility] to see if patient was current with them. [facility] isn't current with patient. If Home Health is needed will need GEO signed. Patient denied known discharge needs at this time. CM will continue to follow and will assist as needed with dc plans/needs. Printing Engineer: Felicita Florian DCPIA - Discharge Planning Initial Assessment Updated by [id number]: Felicita Florian on 10/24/18 3:01 pm * Is the patient Alert and Oriented? Yes * How many steps to enter\\exit or inside your home? * PCP CASTANEDA * Pharmacy [facility] * Preadmission Environment Home with Family * ADLs Independent * Other Equipment WALKER, CANE, W/C SC, BSC * List name and contact numbers for known caregivers / representatives who currently or will assist patient after discharge: ZAY MURILLO - SPOUSE - [phone] * Verbal permission to speak to the caregivers and representatives has been obtained from the patient. Yes * Community resources currently utilized Home Health * Please name any agencies selected above. [facility]? * Additional services required to return to the preadmission environment? No * Can the patient safely return to the preadmission environment? Yes * Has this patient been hospitalized within the prior 30 days at any hospital? No Coverage Notice Reviewer: [id number] - Felicita Florian Notice Issued Date-Time: 10/29/2018 16:35 Notice Type: IM Discharge Notice Notice Delivered To: Patient Relationship to Patient: Self Manager Of [employer] Name: Delivery Method: HAND - Hand Delivered Jannet Days: Prior Verbal Notification: Recipient Understood Notice: Yes Recipient Signature: Yes Med Rec Note Co-signed by Attending: Coverage Notice Comment: Last DP export: 10/29/18 4:01 p Patient Name: EDWARD MURILLO Page [phone] at 1619 All edits/amendments must be made on the electronic document DICTATION DATE: 10/30/181618 CLAM SHUCKER: SYLVAIN 10/30/181618 RPT#: [id number] DC DATE:10/29/18 STATUS: DIS IN [facility] [address] [place] [address] END OF REPORT
== END 2018-10-29 18:15 | DRG 383 ==
LOC: D.ER 12:58 → D.ICU 17:28 → D.M2 17:28 → D.M3 17:28 → D.ICU 10-24 00:08 → D.M3 10-25 19:45
PROVIDERS: Family Medicine; Internal Medicine Gastroenterology; ADMIT Internal Medicine Nephrology; ATTEND Internal Medicine Nephrology
PROC: 0DB68ZX Excision of Stomach, Via Natural or Artificial Opening Endoscopic, Diagnostic (ICD-10-PCS; principal; 2018-10-25 13:30)
DX: K26.9 Duodenal ulcer, unspecified as acute or chronic, without hemorrhage or perforation (principal); E43 Unspecified severe protein-calorie malnutrition; Z68.1 Body mass index [BMI] 19.9 or less, adult; K29.20 Alcoholic gastritis without bleeding; K29.80 Duodenitis without bleeding; D53.9 Nutritional anemia, unspecified; E87.6 Hypokalemia; I10 Essential (primary) hypertension; E78.5 Hyperlipidemia, unspecified; J44.9 Chronic obstructive pulmonary disease, unspecified; I25.10 Atherosclerotic heart disease of native coronary artery without angina pectoris; F32.9 Major depressive disorder, single episode, unspecified; F10.10 Alcohol abuse, uncomplicated; K44.9 Diaphragmatic hernia without obstruction or gangrene; K21.0 Gastro-esophageal reflux disease with esophagitis; G30.9 Alzheimer's disease, unspecified; F02.80 Dementia in other diseases classified elsewhere, unspecified severity, without behavioral disturbance, psychotic disturbance, mood disturbance, and anxiety

== ENCOUNTER 2018-10-29 13:49 | Inpatient (IN) | payer MEDICARE, OTHER ==
[~2018-10-29] VITALS: Ht 160 cm; Wt 59.0 kg
[~2018-10-29 13:49] MED LIST changes: +ANORO ELLIPTA1 EACH INH; +CARAFATE1 G PO
[2018-10-29] MEDS ORDERED: CYMBALTA60 MG PO (19:29)
[2018-10-29] MEDS ORDERED: FLUTICASONE PRO16 GM NASAL (19:30)
[2018-10-29] MEDS ORDERED: NEURONTIN 300300 MG PO (19:31)
[2018-10-29] MEDS ORDERED: CLARITIN 10 MG10 MG PO (19:32)
[2018-10-29] MEDS ORDERED: ATIVAN0.5 MG PO (19:33)
--- NOTE | 2018-10-29 19:40 | NUR ---
GREETED PATIENT AND INTRODUCED MYSELF HER NURSE. PATIENT IS SITTING IN WHEELCHAIR VISITING WITH ROOMMATE AT THIS TIME. DENIES ANY FURTHER NEEDS. CALL LIGHT IN REACH.
[2018-10-29 22:20] VITALS: BP 104/73; BMI 23.0
--- NOTE | 2018-10-29 22:55 | NUR ---
DC'D INFILTRATED PERIPHERAL IV IN LEFT FOREARM. ATTEMPTED TO RESTART IN RIGHT FOREARM WITH NO SUCCESS. ER DEPT CONTACTED TO HELP START IV.
--- NOTE | 2018-10-30 00:15 | NUR ---
CONTACTED ER AGAIN TO SEE IF THEY COULD HELP START PERIPHERAL IV. STATED THEY WOULD GET THERE WHEN THEY COULD.
[2018-10-30 07:57] LABS: BASOPHILS 0.4 % (0-2); EOSINOPHILS 7.5 % (0-7); HEMATOCRIT 28.5 % (36.0-48.0); IMMATURE GRANULOCYTES 0.2 % (0-5); LYMPHOCYTES 12.3 % (15-50); MCHC 35.1 g/dL (31.0-37.0); MCV 99.7 fL (80.0-100.0); MEAN PLATELET VOLUME 9.5 fL (7.4-10.4); MONOCYTES 9.9 % (2-11); NEUTROPHILS 69.7 % (40-80); PLATELET COUNT 154 10x3/uL (130-400); RBC 2.86 10x6/uL (4.00-5.40); RDW 21.7 % (11.5-14.5); WBC 4.9 10x3/uL (4.8-10.8)
--- NOTE | 2018-10-30 07:59 | NUR ---
RESTING WITH EYES CLOSED. NO DISTRESS NOTED. RESP EVEN AND UNLABORED. CL IN REACH.
[2018-10-30 08:20] LABS: CALC OSMOLALITY 288 mosm/kg (275-300); CALCIUM 7.9 mg/dL (8.5-10.1); CHLORIDE - SERUM 111 mmol/L (98-107); CREATININE - SERUM 0.6 mg/dL (0.6-1.3); GLUCOSE 106 mg/dL (74-106); POTASSIUM - SERUM 3.7 mmol/L (3.5-5.1); SODIUM 146 mmol/L (136-145); eGFR NON AFRICAN AMERICAN > 90 mL/min (90-120)
[2018-10-30 08:21] VITALS: BP 127/83
[2018-10-30 08:22] LABS: UREA NITROGEN 6 mg/dL (7-18)
--- NOTE | 2018-10-30 09:24 | NUR ---
PATIENT ADMITTED TO REHAB FROM ACUTE FLOOR. PCP IS DR. CASTANEDA. PATIENT WAS A CLIENT OF [facility] FOR HOME HEALTH IN THE PAST. DME AT HOME IS WALKER, CANE, WHEELCHAIR, SHOWER CHAIR AND BEDSIDE COMMODE. DISCHARGE PLANS ARE FOR PATIENT TO RETURN HOME WITH HER SPOUSE. WILL CONTINUE TO FOLLOW WITH PATIENT.
--- NOTE | 2018-10-30 12:09 | NUR ---
ITTING IN CHAIR EATING LUNCH. CL IN REACH.
[2018-10-30 13:56] VITALS: Ht 160 cm; Wt 59.0 kg
--- NOTE | 2018-10-30 16:56 | NUR ---
NO CHANGE IN ASSESSMENT. RESTING IN BED AT THIS TIME. CL IN REACH.
--- NOTE | 2018-10-30 19:30 | NUR ---
GREETED PATIENT AND INTRODUCED MYSELF HER NURSE. PATIENT IS LAYING IN BED WATCHING TV. RESPIRATIONS EVEN. NO S/S OF DISTRESS. SR UP X 2. BED IN LOWEST POSITION. CALL LIGHT IN REACH. DENIES ANY FURTHER NEEDS AT THIS TIME.
[2018-10-30 20:46] VITALS: BP 119/71
--- NOTE | 2018-10-31 01:35 | NUR ---
PT. RESTING QUIETLY WITH EYES CLOSED. RESPIRATIONS EVEN. NO S/S OF DISTRESS. SR UP X 2. BED IN LOWEST POSITION. CALL LIGHT IN REACH.
[2018-10-31 06:35] LABS: BASOPHILS 0.6 % (0-2); EOSINOPHILS 4.6 % (0-7); IMMATURE GRANULOCYTES 0.1 % (0-5); LYMPHOCYTES 11.5 % (15-50); MCH 34.5 pg (26.0-34.0); MCHC 34.5 g/dL (31.0-37.0); MEAN PLATELET VOLUME 9.5 fL (7.4-10.4); MONOCYTES 7.9 % (2-11); NEUTROPHILS 75.3 % (40-80); PLATELET COUNT 164 10x3/uL (130-400); RDW 21.6 % (11.5-14.5); WBC 6.9 10x3/uL (4.8-10.8)
--- NOTE | 2018-10-31 07:22 | NUR ---
RESTING WITH EYES CLOSED. RESP EVEN AND UNLABORED. NO DISTRESS. CL IN REACH.
[2018-10-31 07:44] LABS: CALC OSMOLALITY 288 mosm/kg (275-300); CALCIUM 8.1 mg/dL (8.5-10.1); CARBON DIOXIDE 24.9 mmol/L (21.0-32.0); CHLORIDE - SERUM 112 mmol/L (98-107); CREATININE - SERUM 0.5 mg/dL (0.6-1.3); GLUCOSE 93 mg/dL (74-106); POTASSIUM - SERUM 3.8 mmol/L (3.5-5.1); SODIUM 146 mmol/L (136-145); UREA NITROGEN 6 mg/dL (7-18); eGFR NON AFRICAN AMERICAN > 90 mL/min (90-120)
[2018-10-31 07:56] VITALS: BP 123/82
--- NOTE | 2018-10-31 11:37 | NUR ---
RESTING IN BED WO C/O PAIN AT THIS TIME. CL IN REACH.
--- NOTE | 2018-10-31 15:27 | NUR ---
AMBULATED IN [place] WITH THERAPY. NO CHANGE IN ASSESSMENT. BACK IN ROOM. CL IN REACH.
--- NOTE | 2018-10-31 19:15 | NUR ---
BEDSIDE REPORT COMPLETE. PT LYING IN BED WATCHING TV. ALERT AND ORIENTED X4. DENIES ANY NEEDS OR PAIN. BUTTOCKS SLIGHTLY REDDENED BLANCHES. RIGHT FOREARM IV SL. DRESSING C/D/I. IV SITE NO REDNESS OR SWELLING NOTED. CALL LIGHT AND WATER WITHIN REACH, FALL PRECAUTIONS IN PLACE. WILL CONTINUE TO MONITOR
[2018-10-31 21:59] VITALS: BP 97/67
--- NOTE | 2018-11-01 01:16 | NUR ---
QUIET HOURS. PT LYING IN BED SUPINE EYES CLOSED RESTING QUIETLY.
--- NOTE | 2018-11-01 03:42 | NUR ---
PT LYING IN BED SUPINE EYES CLOSED RESTING QUIETLY
[2018-11-01 07:00] VITALS: BP 139/90
--- NOTE | 2018-11-01 07:57 | NUR ---
UP IN THERAPY ROOM EATING BREAKFAST AT THIS TIME. NO ACUTE DISTRESS NOTED. WILL CONTINUE PLAN OF CARE.
[2018-11-01 08:00] VITALS: BP 139/90
--- NOTE | 2018-11-01 09:07 | NUR ---
IN THERAPY ROOM WORKING WITH THERAPISTS. NO ACUTE DISTRESS NOTED. VSS. WILL CONTINUE PLAN OF CARE.
--- NOTE | 2018-11-01 09:16 | NUR ---
NUTRITION F/U PT VISIT, CHART REVIEWED. PT REPORTS GOOD INTAKE RECENT MEALS. WILL CONTINUE TO HONOR FOOD PREFERENCES, MONITOR PO INTAKE. RD FOLLOWING
--- NOTE | 2018-11-01 11:56 | NUR ---
UP IN WHEELCHAIR IN ROOM VISITING WITH VISITOR. NO ACUTE DISTRESS NOTED. VSS. CALL LIGHT IN REACH. WILL CONTINUE PLAN OF CARE.
--- NOTE | 2018-11-01 13:20 | NUR ---
IN THERAPY GYM WORKING WITH THERAPISTS. NO ACUTE DISTERSS NOTED. WILL CONTINUE PLAN OF CARE.
--- NOTE | 2018-11-01 15:24 | NUR ---
LYING IN BED WATCHNG TV AT THIS TIME. NO ACUTE DISTRESS NOTED. VSS. WILL CONTINUE PLAN OF CARE.
--- NOTE | 2018-11-01 16:24 | NUR ---
UP IN BED WATCHING TV. NO ACUTE DISTERSS NOTED. WILL CONTINUE PLAN FO CARE.
--- NOTE | 2018-11-01 17:26 | NUR ---
UP IN BED EATING SUPPER AT THIS TIME. NO ACUTE DISTRESS NOTED. CALL LIGHT IN REACH. WILL CONTINUE PLAN OF CARE.
--- NOTE | 2018-11-01 19:00 | NUR ---
BEDSIDE REPORT COMPLETE. PT LYING IN BED WATCHING TV. DENIES ANY NEEDS OR PAIN. RIGHT FOREARM IV WITHOUT REDDNESS OR SWELLING, SALINE LOCKED. DRESSING C/D/I. BUTTOCKS SLIGHTLY REDDENED. CALL LIGHT AND WATER WITHIN REACH, FALL PRECAUTIONS IN PLACE. WILL CONTINUE TO MONITOR
[2018-11-01 20:34] VITALS: BP 128/76
--- NOTE | 2018-11-01 23:43 | NUR ---
PT LYING IN BED SUPINE EYES CLOSED RESTING QUIETLY
--- NOTE | 2018-11-02 03:56 | NUR ---
PT LYING IN BED SUPINE EYES CLOSED RESTING QUIETLY.
--- NOTE | 2018-11-02 06:18 | NUR ---
PT LYING IN BED SUPINE EYES CLOSED RESTING QUIETLY.
--- NOTE | 2018-11-02 07:15 | NUR ---
REPORT RECEIVED. PT IS ALERT AND ORIENTED. TOLD IN REPORT DOES HAVE SOME SHORT TERM FORGETFULNESS. PT HAS BLANCHABLE REDNESS TO BUTTOCK. SHE HAS AN IV TO HER RIGHT FOREARM THAT IS SALINE LOCKED. PT HAS NO COMPLAINTS OR NEEDS AT THIS TIME.
[2018-11-02 07:52] LABS: BASOPHILS 0.6 % (0-2); EOSINOPHILS 9.2 % (0-7); HEMATOCRIT 28.3 % (36.0-48.0); HEMOGLOBIN 9.7 g/dL (12-16); IMMATURE GRANULOCYTES 0.2 % (0-5); LYMPHOCYTES 17.8 % (15-50); MCH 34.5 pg (26.0-34.0); MCHC 34.3 g/dL (31.0-37.0); MCV 100.7 fL (80.0-100.0); MEAN PLATELET VOLUME 9.5 fL (7.4-10.4); MONOCYTES 9.2 % (2-11); PLATELET COUNT 184 10x3/uL (130-400); RBC 2.81 10x6/uL (4.00-5.40); RDW 20.9 % (11.5-14.5); WBC 4.7 10x3/uL (4.8-10.8)
[2018-11-02 08:06] LABS: CALC OSMOLALITY 288 mosm/kg (275-300); CALCIUM 8.3 mg/dL (8.5-10.1); CHLORIDE - SERUM 112 mmol/L (98-107); CREATININE - SERUM 0.5 mg/dL (0.6-1.3); GLUCOSE 89 mg/dL (74-106); POTASSIUM - SERUM 3.4 mmol/L (3.5-5.1); SODIUM 147 mmol/L (136-145); UREA NITROGEN 8 mg/dL (7-18); eGFR NON AFRICAN AMERICAN > 90 mL/min (90-120)
[2018-11-02 08:36] VITALS: BP 139/85
--- NOTE | 2018-11-02 09:30 | NUR ---
PT IN PHYSICAL THERAPY. WILL GO DOWN TO THERAPY ROOM TO GIVE MEDICATIONS.
--- NOTE | 2018-11-02 10:30 | NUR ---
MEDICATION GIVEN WITH NO PROBLEMS.
--- NOTE | 2018-11-02 10:33 | RHP ---
PATIENT: EDWARD MURILLO MEDICAL RECORD: [id number] ACCOUNT: [id number] [facility] : [birth year] ADMISSION DATE: 10/29/18 REHABILITATION HISTORY AND PHYSICAL EXAMINATION POST ADMISSION PHYSICIAN EXAMINATION DATE OF ADMISSION: 10/29/2018. ADMITTING DIAGNOSES: Debility secondary to muscular wasting and disuse atrophy. HISTORY OF PRESENT ILLNESS: The patient is a 68-year-old female patient who presented to the ED via EMS with complaints of severe intractable nausea, vomiting, abdominal pain that has been occurring over the previous 2 weeks. She was noted to have duodenitis on CT scan, was started on Levaquin, Flagyl and Protonix IV. She also had a positive UA. A GI consult was done and she had an EGD, she had a large cratered duodenal bulb ulcer. She had gastritis, reflux esophagitis, and a small hiatal hernia, got a history of hypertension, hyperlipidemia, coronary artery disease with coronary bypass grafting, CVA, depression, anxiety, bipolar disorder, COPD, alcohol abuse, and dementia. The patient has been having some dark tarry stools, was started on IV procalamine and Flagyl. She has got deconditioning, debility, unsteady gait. She has got impaired mobility. She is a high fall risk. She has self-care deficits. These are all barriers to her discharge home safely at this time. She lives at home with her who is noted to be independent with her mobility and ADLs. She is currently set up for mod assist for ADLs and mod assist for mobility. She and her plan for her to return home at her prior level of functioning or better after being in the acute rehabilitation. COMORBIDITIES: In this patient include alcoholic gastritis, duodenitis, macrocytic anemia, hypertension, hyperlipidemia, gastroesophageal reflux disease, COPD, depression, anxiety, bipolar disorder, Alzheimer's dementia, severe protein-calorie malnutrition, hyperlipidemia, CVA, cratered duodenal bulb ulcer, reflux esophagitis and a hiatal hernia. PAST MEDICAL HISTORY: Significant for dementia, hypertension, angina, ovarian cancer, depression, anxiety, bipolar, tobacco use, anorexia, CVA, cirrhosis, COPD, history of alcohol use, anemia, coronary artery bypass grafting, arthritis, chronic back pain. PAST SURGICAL HISTORY: Includes tonsillectomy and adenoidectomy, hysterectomy, gallbladder surgery. She has had radiation, coronary artery bypass grafting, and stent placement. ALLERGIES: HONEY BEE VENOM. CURRENT MEDICATIONS: Include vitamin D 2000 units daily, Zyprexa 5 mg daily, Namenda 10 mg daily, Aricept 10 mg daily. She is on aspirin 81 mg daily, Keppra 250 mg daily, Protonix 40 mg b.i.d., melatonin 6 mg q.h.s., Klonopin 1 mg b.i.d., and polyethylene glycol 17 grams in 8 ounces of water daily as needed. HABITS: Does have a history of tobacco and alcohol use. FAMILY HISTORY: Noncontributory. SOCIAL HISTORY: The patient hopes to return back home and get back to her prior HISTORY AND PHYSICAL [id number] EDWARD MURILLO level of functioning. REVIEW OF SYSTEMS: GENERAL: Does complain of weakness and fatigue. HEENT: Denies cold, cough, or congestion. CARDIOVASCULAR: Denies chest pain. PHYSICAL EXAMINATION: VITAL SIGNS: Stable, afebrile. GENERAL: A well-developed female in no acute distress, alert upon exam. HEENT: Normocephalic and atraumatic. Mucosa moist. NECK: Supple. No lymphadenopathy. LUNGS: Clear in upper [place]. No wheezing, rhonchi, or rales. HEART: Regular rate and rhythm. ABDOMEN: Benign, nontender, nondistended. Positive bowel sounds times 4. EXTREMITIES: No clubbing, cyanosis or edema. NEUROLOGIC: She does have 2/5 muscular strength in her proximal muscles of her thighs and 3/5 in her upper arms. LABORATORY DATA: White count is 4.9, H&H of 10 and 28, and platelet count was noted to be 154. Sodium 146, potassium 3.7, BUN and creatinine of 6 and 0.6, and blood sugar is noted to be 106. ASSESSMENT: This is a 68-year-old female patient admitted to the rehab with a working diagnosis of debility secondary to muscular wasting and probable ETOH use. The patient has potential to make improvement. We instituted the following multidisciplinary therapies include, but not limited to physical, occupational, respiratory, speech, nutritional services, prosthetics and orthotics. Given her complex medical condition and risk for more complications, rehabilitation services cannot be provided at a low level of care such as a skilled nurse facility. PLAN: 1. Admit to [facility] rehab for an intensive inpatient therapy to include the following disciplines: A. Physical therapy to improve gait, all transfer skills and bed mobility to a modified independent level. B. Occupational therapy to improve activities of daily living to a modified independent level. C. Case management to assist with discharge planning and placement options. D. Nutrition to assist with nutritional needs. E. Rehabilitation nursing to assist in monitoring the patient's underlying medical conditions and to assist with any type of bowel or bladder management. 2. The patient's current medication and medical care will be continued. 3. The patient will be placed on standard fall precautions. 4. We will watch for any signs of alcohol withdrawal. 5. We will see again in the a.m. TRANSINT:[id number] Voice Confirmation ID: [id number] DOCUMENT ID: [id number] ANA notes whether there has been none or any medical/functional change since admission: - No change since prescreen. HISTORY AND PHYSICAL [id number] EDWARD MURILLO attests patient continues to be appropriate for IRF: - Continues to be appropriate. KAMILLA JEAN MD at 1033 CC: [id number] DICTATION DATE: 10/30/18 1111 STOREROOM KEEPER: 10/30/18 1200 ADM IN [facility] [address] [place] [address]
--- NOTE | 2018-11-02 12:00 | NUR ---
LUNCH TAKEN TO PT. SITTING UP IN WHEELCHAIR. NO COMPLAINTS OR NEEDS AT THIS TIME.
--- NOTE | 2018-11-02 13:54 | NUR ---
PT DOWN IN THERAPY.
--- NOTE | 2018-11-02 15:45 | NUR ---
PT RESTING QUIETLY WITH NO DISTRESS NOTED.
--- NOTE | 2018-11-02 17:32 | NUR ---
PT SITTING UP IN BED EATING DINNER. NO COMPLAINTS OR NEEDS AT THIS TIME. WILL CONTINUE TO MONITOR.
[2018-11-02 18:29] VITALS: BP 116/70
--- NOTE | 2018-11-02 19:25 | NUR ---
AWAKE AND ALERT. RESTING IN BED WITH RESPIRATIONS UNLABORED. SALINE LOCK ITACT TO RIGHT FOREARM WITH NO SIGNS OF INFILTRATION. NO ACUTE DISTRESS NOTED. CALL LIGHT IN REACH.
--- NOTE | 2018-11-02 23:50 | NUR ---
RESTING IN BED WITH EYES CLOSED AND RESPIRAITONS UNALABORED. NO DISTRESS NOTED. CALL LIGHT IN REACH.
--- NOTE | 2018-11-03 03:58 | NUR ---
ASSISTED TO BATHROOM AND BACK TO BED. NO DISTRESS NOTED.
--- NOTE | 2018-11-03 09:15 | NUR ---
PT AM MEDS ADMINISTERED. PT DENIES NEEDS. WCTM.
[2018-11-03 11:05] VITALS: BP 141/69
--- NOTE | 2018-11-03 12:00 | NUR ---
EATING LUNCH.DENIES NEEDS.
[2018-11-03 19:10] VITALS: BP 95/57
--- NOTE | 2018-11-03 19:21 | NUR ---
AWAKE AND ALERT. RESTING IN BED WITH RESPIRATIONS UNLABORED. STATED SHE HAD A GOOD DAY AND DID HER THERAPY. SALINE LOCK TO RIGHT FOREARM INTACT WITH NO SIGNS OF INFILTRATION. NO ACUTE DISTRESS NOTED. CALL LIGHT IN REACH.
--- NOTE | 2018-11-04 01:45 | NUR ---
RESTING IN BED WITH EYES CLOSED AND RESPIRTIONS UNLABORED. NO DISTRESS NOTED. CALL LIGHT IN REACH.
--- NOTE | 2018-11-04 05:28 | NUR ---
QUIET HOURS. NO ACUTE CHANGES IN CONDITION THIS SHIFT. NO DISTRESS NOTED. RESTING QUIETLY IN BED.
[2018-11-04 08:09] VITALS: BP 125/70
--- NOTE | 2018-11-04 09:00 | NUR ---
PATIENT SITTING UP IN BED TO EAT BREAKFAST. ALERT/ORIENT. CALL LIGHT WITHIN REACH. VOICES NO NEEDS AT THIS TIME. WILL CONTINUE WITH PLAN OF CARE
--- NOTE | 2018-11-04 10:00 | NUR ---
PATIENT HELPED IN SHOWER BY NURSE ASST. PATIENT BECAME VERY EMOTIONAL AFTER SHOWER. CRYING. REQUESTED PRN TYLENOL FOR BACK PAIN, WHICH THIS NURSE GAVE. PATIENTS CAME IN AFTER PATIENT HAD SHOWER. HE STATED THAT HIS WAS VERY UPSET THAT A MALE STAFF MEMBER HELPED WITH HER SHOWER. STATED THIS WAS UNAPPROPREATE. THIS NURSE STATED THAT IT IS APPROPEATE IN THE [facility] SETTING TO HAVE MALE NURSES AND MALE NURSE ASST HELP FEMALE PATIENTS WITH SHOWERING AND TOILETING. MALE NURSE ASST DID NOT TOUCH FEMALE PATIENT WHILE HELPING HER WITH SHOWER, JUST SET UP CARE GIVEN. PATIENT DID NOT STATE TO THIS NURSE OR NURSE ASST BEFORE SHOWER THAT SHE DID NOT WANT A MALE TO HELP HER. THIS NURSE APOLOGIZED TO PATIENT AND AND STATED THAT FROM NOW ON A FEMALE NURSE OR NURSE ASST WILL BE ASSIGNED TO THIS PATIENT WITH HER SHOWER. THIS NURSE APOLOGIZED TO PATIENT AND
--- NOTE | 2018-11-04 14:00 | NUR ---
I have reviewed this patient and I concur with the Shift Assessment completed by the Licensed Practical Nurse today this shift.
[2018-11-04 19:42] VITALS: BP 127/74
--- NOTE | 2018-11-04 20:14 | NUR ---
AWAKE AND ALERT. RESTING IN BED WITH RESPIRATIONS UNLABORED. NO ACUTE DISTRESS NOTED. CALL LIGHT IN REACH.
--- NOTE | 2018-11-05 01:19 | NUR ---
CONTINUES RESTING IN BED WITH RESPIRATIONS UNLABORED. NO DISTRESS NOTED. CALL LIGHT IN REACH,
--- NOTE | 2018-11-05 05:11 | NUR ---
QUIET HOURS. HAS SLEPT IN LONG INTERVALS THIS SHIFT ONLY AWAKE 3 TIMES TO GO TO BATHROOM. CONDITION UNCHANGED THIS SHIFT. NO DISTRESS NOTED.
[2018-11-05 07:59] LABS: HEMATOCRIT 27.3 % (36.0-48.0); HEMOGLOBIN 9.1 g/dL (12-16); MCH 33.7 pg (26.0-34.0); MCHC 33.3 g/dL (31.0-37.0); MCV 101.1 fL (80.0-100.0); RDW 20.8 % (11.5-14.5); WBC 4.4 10x3/uL (4.8-10.8)
[2018-11-05 08:04] VITALS: BP 113/64
[2018-11-05 08:04] LABS: CALC OSMOLALITY 288 mosm/kg (275-300); CALCIUM 8.7 mg/dL (8.5-10.1); CHLORIDE - SERUM 111 mmol/L (98-107); CREATININE - SERUM 0.5 mg/dL (0.6-1.3); GLUCOSE 89 mg/dL (74-106); PLATELET COUNT 247 10x3/uL (130-400); POTASSIUM - SERUM 3.3 mmol/L (3.5-5.1); SODIUM 146 mmol/L (136-145); UREA NITROGEN 11 mg/dL (7-18); eGFR NON AFRICAN AMERICAN > 90 mL/min (90-120)
--- NOTE | 2018-11-05 08:07 | NUR ---
ALERT AND ORIENTED. EATING BREAKFAST. NO DISTRESS NOTED. CL IN REACH.
[2018-11-05 10:06] LABS: ANISOCYTOSIS OCC; BASOPHILS 1 % (0-2); EOSINOPHILS 10 % (0-7); LYMPHOCYTES 25 % (15-50); MONOCYTES 5 % (2-11); NEUTROPHILS 59 % (40-80); PLATELET ESTIMATE NORMAL
--- NOTE | 2018-11-05 10:36 | NUR ---
SHOWER PER OT.
--- NOTE | 2018-11-05 13:46 | NUR ---
AMBULATING IN [place] WITH THERAPY.
--- NOTE | 2018-11-05 18:04 | NUR ---
NO CHANGE IN ASSESSMENT. BED ALARM IS ON. RESP EVEN AND UNLABORED. CL IN REACH.
--- NOTE | 2018-11-05 19:15 | NUR ---
BEDSIDE REPORT COMPLETE. PT LYING IN BED SUPINE WATCHING TV. ALERT AND ORIENTED X4. DENIES ANY NEEDS OR PAIN. NO SIGNS OF DISTRESS NOTED. CALL LIGHT AND WATER WITHIN REACH, FALL PRECAUTIONS IN PLACE. WILL CONTINUE TO MONITOR
[2018-11-05 19:30] VITALS: BP 97/55
--- NOTE | 2018-11-05 23:02 | NUR ---
QUIET HOURS. PT LYING IN BED EYES CLOSED RESTING QUIETLY.
--- NOTE | 2018-11-06 01:50 | NUR ---
ASSISTED PT TO RESTROOM AND BACK TO BED WITH MIN ASSIST.
--- NOTE | 2018-11-06 02:33 | NUR ---
PT LYING IN BED SUPINE EYES CLOSED RESTING QUIETLY
--- NOTE | 2018-11-06 05:25 | NUR ---
PT LYING IN BED EYES CLOSED RESTING QUIETLY.
[2018-11-06 07:43] VITALS: BP 151/91
--- NOTE | 2018-11-06 13:35 | NUR ---
Nutrition Follow-up: Diet: Regular PO intake: 75-100%. Reports good appetite and eating "very well" Does not like Ensure and states that she will NOT drink. Will eat ice cream after dinner. Encouraged her to stay hydrated and continue eating as much as possible. Last wt: 130# (10/30/18). +BM Labs reviewed, noted elevated Na. Meds and skin assessment reviewed Will add ice cream to dinner tray. Continue current nutrition regimen. RD Following
--- NOTE | 2018-11-06 14:48 | NUR ---
PARTICIPATED IN THERAPY TODAY.
--- NOTE | 2018-11-06 16:45 | NUR ---
NO CHANGE IN ASSESSMENT. RESP EVEN AND UNLABORED. CL IN REACH.
--- NOTE | 2018-11-06 19:35 | NUR ---
PT LYING IN BED WATCHING TV. CL IN REACH. DENIES NEEDS OR PAIN AT THIS TIME. BED IN LOW SIDE RAILS X2. BED ALARM ON. PT CONFUSED AT TIME. LUNGS CLEAR. BOWEL ACTIVE X4. WILL CONTINUE TO MONITOR.
[2018-11-06 21:29] VITALS: BP 94/45
--- NOTE | 2018-11-07 01:38 | NUR ---
I have reviewed this patient and I concur with the Shift Assessment completed by the Licensed Practical Nurse today this shift.
[2018-11-07 07:38] LABS: BASOPHILS 0.5 % (0-2); EOSINOPHILS 11.5 % (0-7); HEMATOCRIT 30.4 % (36.0-48.0); HEMOGLOBIN 10.1 g/dL (12-16); IMMATURE GRANULOCYTES 0.2 % (0-5); LYMPHOCYTES 22.5 % (15-50); MCHC 33.2 g/dL (31.0-37.0); MCV 102.4 fL (80.0-100.0); MEAN PLATELET VOLUME 8.7 fL (7.4-10.4); MONOCYTES 9.6 % (2-11); NEUTROPHILS 55.7 % (40-80); PLATELET COUNT 259 10x3/uL (130-400); RBC 2.97 10x6/uL (4.00-5.40); RDW 20.2 % (11.5-14.5); WBC 4.1 10x3/uL (4.8-10.8)
[2018-11-07 07:51] LABS: CALC OSMOLALITY 289 mosm/kg (275-300); CALCIUM 9.3 mg/dL (8.5-10.1); CHLORIDE - SERUM 108 mmol/L (98-107); CREATININE - SERUM 0.6 mg/dL (0.6-1.3); GLUCOSE 96 mg/dL (74-106); POTASSIUM - SERUM 3.3 mmol/L (3.5-5.1); SODIUM 145 mmol/L (136-145); UREA NITROGEN 15 mg/dL (7-18); eGFR NON AFRICAN AMERICAN > 90 mL/min (90-120)
--- NOTE | 2018-11-07 08:00 | NUR ---
SHIFT ASSMT COMPLETED.
[2018-11-07 08:04] VITALS: BP 149/81
--- NOTE | 2018-11-07 12:00 | NUR ---
SITTING UP EATTING LUNCH.
--- NOTE | 2018-11-07 19:29 | NUR ---
PATIENT RECEIVED SITIING UP IN BED. ASSESSMENT & VITAL SIGNS DONE. NO C/O PAIN OR DISTRESS. BED LOW CALL LIGHT WITHIN REACH. WILL CONTINUE TO MONITOR.
[2018-11-07 21:17] VITALS: BP 99/56
--- NOTE | 2018-11-08 04:34 | NUR ---
PATIENT EYES CLOSED. RESPIRATIONS 18 & EVEN. BED LOW. CALL LIGHT WITHIN REACH. WILL CONTINUE TO MONITOR.
--- NOTE | 2018-11-08 05:00 | NUR ---
I have reviewed this patient and I concur with the Shift Assessment completed by the Licensed Practical Nurse today this shift.
[2018-11-08 08:00] VITALS: BP 154/88
--- NOTE | 2018-11-08 08:00 | NUR ---
SHIFT ASSMT COMPLETED.PLAN TO DC HOME TODAY.
[2018-11-08] MEDS ORDERED: BROVANA15 MCG/2 M INH (08:53)
--- NOTE | 2018-11-08 09:27 | NUR ---
PATIENT DISCHARGING HOME TODAY WITH SPOUSE. [facility] WILL PROVIDE THERAPY AT HOME. [facility] WILL SEE PATIENT IN 7-10 DAYS. NO NEW DME NEEDED AT THIS TIME. PATIENT WILL SEE DR. CASTANEDA NEEDED. PATIENT CHOICE FORM AND IMFM FORMS SIGNED, COPY GIVEN TO PATIENT AND FILED IN CHART. DISCHARGE INSTRUCTIONS WITH [facility]IM DATA FAXED TO PCP, HOME HEALTH AND REVIEWED WITH PATIENT AND FAMILY.
--- NOTE | 2018-11-08 12:00 | NUR ---
REVIEWED MEDS AND DISCHARGE INSTRUCTIONS WITH .STATED HAS ALL MEDS.DISCHARGED IN STABLE CONDITION WITH AND INSTRUCTIONS.
== END 2018-11-08 12:15 | disposition home health service (06) | DRG 947 ==
LOC: D.REHAB 13:49
PROVIDERS: ADMIT Emergency Medicine; ATTEND Emergency Medicine
DX: R53.81 Other malaise (principal); E43 Unspecified severe protein-calorie malnutrition; J90 Pleural effusion, not elsewhere classified; Z68.1 Body mass index [BMI] 19.9 or less, adult; M62.50 Muscle wasting and atrophy, not elsewhere classified, unspecified site; K29.20 Alcoholic gastritis without bleeding; K29.80 Duodenitis without bleeding; K44.9 Diaphragmatic hernia without obstruction or gangrene; I10 Essential (primary) hypertension; E78.5 Hyperlipidemia, unspecified; K21.9 Gastro-esophageal reflux disease without esophagitis; J44.9 Chronic obstructive pulmonary disease, unspecified; F41.8 Other specified anxiety disorders; D53.9 Nutritional anemia, unspecified; G30.9 Alzheimer's disease, unspecified; F02.80 Dementia in other diseases classified elsewhere, unspecified severity, without behavioral disturbance, psychotic disturbance, mood disturbance, and anxiety; F31.9 Bipolar disorder, unspecified; K26.9 Duodenal ulcer, unspecified as acute or chronic, without hemorrhage or perforation; E87.6 Hypokalemia; I25.10 Atherosclerotic heart disease of native coronary artery without angina pectoris

== ENCOUNTER 2019-01-10 16:08 | Emergency (ER) | payer MEDICARE, OTHER ==
[~2019-01-10] VITALS: Ht 160 cm; Wt 63.6 kg
[~2019-01-10 16:08] MED LIST changes: +ATIVAN0.5 MG PO; +BROVANA15 MCG/2 M INH; +CLARITIN 10 MG10 MG PO; +CYMBALTA60 MG PO; +FLUTICASONE PRO16 GM NASAL; +NEURONTIN 300300 MG PO
[2019-01-10 16:18] VITALS: Ht 160 cm; Wt 63.6 kg
[2019-01-10] MEDS ORDERED: BROVANA15 MCG/2 M INH (16:38)
[2019-01-10 17:31] LABS: BASOPHILS 0.3 % (0-2); EOSINOPHILS 1.3 % (0-7); HEMATOCRIT 38.3 % (36.0-48.0); HEMOGLOBIN 12.1 g/dL (12-16); LYMPHOCYTES 13.6 % (15-50); MCH 30.7 pg (26.0-34.0); MCHC 31.6 g/dL (31.0-37.0); MCV 97.2 fL (80.0-100.0); MEAN PLATELET VOLUME 9.6 fL (7.4-10.4); MONOCYTES 6.2 % (2-11); NEUTROPHILS 78.6 % (40-80); RBC 3.94 10x6/uL (4.00-5.40); RDW 17.9 % (11.5-14.5)
[2019-01-10 17:34] LABS: PLATELET COUNT 206 10x3/uL (130-400)
[2019-01-10 17:42] LABS: CALC OSMOLALITY 286 mosm/kg (275-300); CALCIUM 9.3 mg/dL (8.5-10.1); CARBON DIOXIDE 25.7 mmol/L (21.0-32.0); CHLORIDE - SERUM 107 mmol/L (98-107); CREATININE - SERUM 0.6 mg/dL (0.6-1.3); GLUCOSE 90 mg/dL (74-106); POTASSIUM - SERUM 3.8 mmol/L (3.5-5.1); SODIUM 144 mmol/L (136-145); UREA NITROGEN 13 mg/dL (7-18); eGFR NON AFRICAN AMERICAN > 90 mL/min (90-120)
[2019-01-10 17:52] LABS: ALBUMIN 3.1 g/dL (3.4-5.0); ALKALINE PHOSPHATASE 120 U/L (46-116); ALT (SGPT) 17 U/L (10-68); AMYLASE - SERUM 34 U/L (25-115); BILIRUBIN - TOTAL 0.22 mg/dL (0.2-1.3); LIPASE 76 U/L (73-393); PROTEIN - SERUM 6.1 g/dL (6.4-8.2)
[2019-01-10 17:56] LABS: TROPONIN-I < 0.017 ng/mL (0.000-0.060)
[2019-01-10 19:46] LABS: APPEARANCE CLEAR (CLEAR); BILIRUBIN NEGATIVE (NEGATIVE); COLOR YELLOW (YELLOW); EPITHELIAL CELLS 0-5 /hpf (0-5); GLUCOSE NEGATIVE (NEGATIVE); KETONE NEGATIVE (NEGATIVE); NITRITE NEGATIVE (NEGATIVE); PROTEIN NEGATIVE (NEGATIVE); RED CELLS - URINE 0-5 /hpf (0-5); UROBILINOGEN NORMAL (NORMAL)
[2019-01-10] MEDS ORDERED: CARAFATE1 G PO (21:04)
[2019-01-10] MEDS ORDERED: PROTONIX40 MG PO (21:04)
[2019-01-10 21:44] VITALS: BP 157/84
== END 2019-01-10 21:31 | disposition home or self-care (01) ==
LOC: D.ER 16:08
PROVIDERS: Family Medicine
DX: K29.70 Gastritis, unspecified, without bleeding (principal); R10.9 Unspecified abdominal pain; G30.9 Alzheimer's disease, unspecified; F02.80 Dementia in other diseases classified elsewhere, unspecified severity, without behavioral disturbance, psychotic disturbance, mood disturbance, and anxiety

== ENCOUNTER 2019-02-03 14:47 | Emergency (ER) | payer MEDICARE, OTHER ==
[~2019-02-03] VITALS: Ht 160 cm; Wt 47.3 kg
[2019-02-03 14:50] VITALS: Ht 160 cm; Wt 47.3 kg
[2019-02-03 15:35] LABS: BASOPHILS 0.3 % (0-2); EOSINOPHILS 1.4 % (0-7); HEMATOCRIT 39.2 % (36.0-48.0); IMMATURE GRANULOCYTES 0.2 % (0-5); LYMPHOCYTES 15.6 % (15-50); MCH 31.6 pg (26.0-34.0); MCHC 33.2 g/dL (31.0-37.0); MCV 95.1 fL (80.0-100.0); MEAN PLATELET VOLUME 9.4 fL (7.4-10.4); MONOCYTES 9.8 % (2-11); NEUTROPHILS 72.7 % (40-80); PLATELET COUNT 177 10x3/uL (130-400); RBC 4.12 10x6/uL (4.00-5.40); RDW 19.9 % (11.5-14.5); WBC 6.4 10x3/uL (4.8-10.8)
[2019-02-03 15:41] LABS: CALC OSMOLALITY 276 mosm/kg (275-300); CALCIUM 9.1 mg/dL (8.5-10.1); CARBON DIOXIDE 26.2 mmol/L (21.0-32.0); CHLORIDE - SERUM 104 mmol/L (98-107); CREATININE - SERUM 0.8 mg/dL (0.6-1.3); GLUCOSE 85 mg/dL (74-106); SODIUM 140 mmol/L (136-145); UREA NITROGEN 11 mg/dL (7-18); eGFR NON AFRICAN AMERICAN 76 mL/min (90-120)
[2019-02-03 15:50] LABS: ALBUMIN 3.5 g/dL (3.4-5.0); ALKALINE PHOSPHATASE 126 U/L (46-116); ALT (SGPT) 23 U/L (10-68); AMYLASE - SERUM 24 U/L (25-115); BILIRUBIN - TOTAL 0.44 mg/dL (0.2-1.3); LIPASE 63 U/L (73-393); PROTEIN - SERUM 6.7 g/dL (6.4-8.2)
[2019-02-03 15:51] LABS: TROPONIN-I < 0.017 ng/mL (0.000-0.060)
[2019-02-03 17:14] LABS: APPEARANCE CLEAR (CLEAR); BILIRUBIN NEGATIVE (NEGATIVE); COLOR YELLOW (YELLOW); GLUCOSE NEGATIVE (NEGATIVE); KETONE NEGATIVE (NEGATIVE); NITRITE NEGATIVE (NEGATIVE); PROTEIN NEGATIVE (NEGATIVE); UROBILINOGEN NORMAL (NORMAL)
[2019-02-03] MEDS ORDERED: ZOFRAN8 MG PO (18:10)
[2019-02-03 19:00] VITALS: BP 143/91
== END 2019-02-03 19:00 | disposition home or self-care (01) ==
LOC: D.ER 14:47
PROVIDERS: Family Medicine
DX: R10.84 Generalized abdominal pain (principal); F03.90 Unspecified dementia, unspecified severity, without behavioral disturbance, psychotic disturbance, mood disturbance, and anxiety; I25.10 Atherosclerotic heart disease of native coronary artery without angina pectoris; I10 Essential (primary) hypertension; Z72.0 Tobacco use; R11.2 Nausea with vomiting, unspecified; R19.7 Diarrhea, unspecified

== ENCOUNTER → 2019-03-07 12:53 | Outpatient (CLI) | payer MEDICARE, OTHER ==
[2019-02-03 14:50] VITALS: BMI 18.4
[~2019-03-07 12:53] MED LIST changes: +ZOFRAN8 MG PO
== END | disposition home or self-care (01) ==
LOC: D.RAD 03-04 09:00
PROVIDERS: ATTEND Internal Medicine Gastroenterology
DX: K25.9 Gastric ulcer, unspecified as acute or chronic, without hemorrhage or perforation (principal); R13.10 Dysphagia, unspecified; R10.13 Epigastric pain; R11.2 Nausea with vomiting, unspecified

== ENCOUNTER 2019-06-17 14:44 | Emergency (ER) | payer MEDICARE, OTHER ==
[~2019-06-17] VITALS: Ht 160 cm; Wt 53.6 kg
[2019-06-17 14:55] VITALS: Ht 160 cm; Wt 53.6 kg
[2019-06-17] MEDS ORDERED: LASIX20 MG PO (14:59)
[2019-06-17] MEDS ORDERED: SYNTHROID25 MCG PO (15:00)
[2019-06-17] MEDS ORDERED: PAXIL30 MG PO (15:00)
[2019-06-17] MEDS ORDERED: CRESTOR40 MG PO (15:01)
[2019-06-17 15:25] LABS: BILIRUBIN NEGATIVE (NEGATIVE); GLUCOSE NEGATIVE (NEGATIVE); KETONE NEGATIVE (NEGATIVE); NITRITE NEGATIVE (NEGATIVE); UROBILINOGEN NORMAL (NORMAL)
[2019-06-17 15:27] LABS: BASOPHILS 0.7 % (0-2); EOSINOPHILS 4.5 % (0-7); HEMATOCRIT 46.1 % (36.0-48.0); LYMPHOCYTES 19.5 % (15-50); MCH 33.5 pg (26.0-34.0); MCHC 32.5 g/dL (31.0-37.0); MCV 102.9 fL (80.0-100.0); MEAN PLATELET VOLUME 9.9 fL (7.4-10.4); MONOCYTES 8.6 % (2-11); NEUTROPHILS 66.7 % (40-80); PLATELET COUNT 181 10x3/uL (130-400); RBC 4.48 10x6/uL (4.00-5.40); RDW 17.1 % (11.5-14.5); WBC 4.4 10x3/uL (4.8-10.8)
[2019-06-17 15:29] LABS: CALC OSMOLALITY 280 mosm/kg (275-300); CALCIUM 9.3 mg/dL (8.5-10.1); CARBON DIOXIDE 28.1 mmol/L (21.0-32.0); CHLORIDE - SERUM 104 mmol/L (98-107); CREATININE - SERUM 0.8 mg/dL (0.6-1.3); GLUCOSE 92 mg/dL (74-106); SODIUM 141 mmol/L (136-145); UREA NITROGEN 13 mg/dL (7-18); eGFR NON AFRICAN AMERICAN 75 mL/min (90-120)
[2019-06-17 15:37] LABS: ALBUMIN 3.6 g/dL (3.4-5.0); ALKALINE PHOSPHATASE 115 U/L (30-120); ALT (SGPT) 19 U/L (10-68); AMYLASE - SERUM 26 U/L (25-115); BILIRUBIN - TOTAL 0.41 mg/dL (0.2-1.3); PROTEIN - SERUM 7.2 g/dL (6.4-8.2)
[2019-06-17 15:42] LABS: LIPASE 47 U/L (73-393); TROPONIN-I < 0.017 ng/mL (0.000-0.060)
[2019-06-17] MEDS ORDERED: ZOFRAN4 MG PO (18:09)
[2019-06-17 18:55] VITALS: BP 173/92
== END 2019-06-17 18:55 | disposition home or self-care (01) ==
LOC: D.ER 14:44
PROVIDERS: Family Medicine
DX: R10.9 Unspecified abdominal pain (principal); K21.9 Gastro-esophageal reflux disease without esophagitis; E07.9 Disorder of thyroid, unspecified; J44.9 Chronic obstructive pulmonary disease, unspecified; Z72.0 Tobacco use

== ENCOUNTER 2019-11-04 13:02 | Emergency (ER) | payer MEDICARE, OTHER ==
[~2019-11-04] VITALS: Ht 160 cm; Wt 49.1 kg
[~2019-11-04 13:02] MED LIST changes: +SYNTHROID25 MCG PO; +ZOFRAN4 MG PO
[2019-11-04 13:04] VITALS: Ht 160 cm; Wt 49.1 kg
[2019-11-04] MEDS ORDERED: NULEV0.125 MG PO (13:07)
[2019-11-04 13:55] LABS: CALC OSMOLALITY 277 mosm/kg (275-300); CARBON DIOXIDE 31.2 mmol/L (21.0-32.0); CHLORIDE - SERUM 105 mmol/L (98-107); CREATININE - SERUM 0.9 mg/dL (0.6-1.3); GLUCOSE 78 mg/dL (74-106); POTASSIUM - SERUM 3.6 mmol/L (3.5-5.1); SODIUM 141 mmol/L (136-145); UREA NITROGEN 8 mg/dL (7-18); eGFR NON AFRICAN AMERICAN 66 mL/min (90-120)
[2019-11-04 14:04] LABS: ALBUMIN 3.4 g/dL (3.4-5.0); ALKALINE PHOSPHATASE 116 U/L (30-120); ALT (SGPT) 13 U/L (10-68); AMYLASE - SERUM 28 U/L (25-115); LIPASE 62 U/L (73-393); PROTEIN - SERUM 6.4 g/dL (6.4-8.2)
[2019-11-04 14:05] LABS: TROPONIN-I < 0.017 ng/mL (0.000-0.060)
[2019-11-04 14:11] LABS: BILIRUBIN NEGATIVE (NEGATIVE); KETONE NEGATIVE (NEGATIVE); NITRITE NEGATIVE (NEGATIVE); UROBILINOGEN NORMAL mg/dL (< 2)
[2019-11-04 14:47] LABS: BASOPHILS 0.6 % (0-2); EOSINOPHILS 3.6 % (0-7); HEMATOCRIT 28.4 % (36.0-48.0); HEMOGLOBIN 9.3 g/dL (12-16); IMMATURE GRANULOCYTES 0.3 % (0-5); LYMPHOCYTES 17.6 % (15-50); MCH 33.3 pg (26.0-34.0); MCHC 32.7 g/dL (31.0-37.0); MCV 101.8 fL (80.0-100.0); MEAN PLATELET VOLUME 9.3 fL (7.4-10.4); MONOCYTES 8.1 % (2-11); NEUTROPHILS 69.8 % (40-80); PLATELET COUNT 123 10x3/uL (130-400); RBC 2.79 10x6/uL (4.00-5.40); RDW 14.7 % (11.5-14.5); WBC 3.6 10x3/uL (4.8-10.8)
[2019-11-04] MEDS ORDERED: PROTONIX40 MG PO (16:13)
[2019-11-04 17:07] VITALS: BP 169/89
== END 2019-11-04 17:04 | disposition home or self-care (01) ==
LOC: D.ER 13:02
PROVIDERS: Family Medicine
DX: R10.9 Unspecified abdominal pain (principal); R53.1 Weakness; Z95.1 Presence of aortocoronary bypass graft

== ENCOUNTER 2020-04-23 13:36 | Inpatient (IN) | payer MEDICARE, OTHER ==
[~2020-04-23] VITALS: Ht 160 cm; Wt 36.3 kg
[~2020-04-23 13:36] MED LIST changes: +ACETAMINOPHEN325 MG PO; +ATIVAN IV; +CATAPRES0.1 MG PO; +COLACE100 MG PO; +ELIQUIS2.5 MG PO; +FLAGYL 500500 MG/100 IVPB; +FLORAJEN3 CAPS460 MG PO; +HYDRALAZINE20 MG/ML IV; +HYDROCODON-ACE1 EA10 PO; +HYDROCODONE-AC1 EAC2 PO; +IPRAT-ALBUT 0.5-3 ML INH; +KEPPRA1000 MG PO; +KEPPRA500 MG PO; +KLONOPIN0.5 MG PO; +LEVAQUIN750 MG PO; +LOVENOX40 MG/0.4 SC; +MIRALAX17 GM PO; +NAPROSYN500 MG PO; +NICODERM CQ1 EAC3 TRANSDERM; +NULEV0.125 MG PO; +ONDANSETRON ODT8 MG PO; +PHENERGAN IM; +VITAMIN B-1100 M1 PO; +VITAMIN D-32000 UNI2 PO; +VITAMIN D325 MC1 PO
[2020-04-23 16:40] LABS: BASOPHILS 0.3 % (0-2); EOSINOPHILS 1.6 % (0-7); HEMATOCRIT 38.7 % (36.0-48.0); HEMOGLOBIN 12.5 g/dL (12-16); IMMATURE GRANULOCYTES 0.3 % (0-5); LYMPHOCYTE ABS# 1.75 10x3/uL (1.18-3.74); LYMPHOCYTES 14.9 % (15-50); MCH 29.5 pg (26.0-34.0); MCHC 32.3 g/dL (31.0-37.0); MCV 91.3 fL (80.0-100.0); MEAN PLATELET VOLUME 9.1 fL (7.4-10.4); MONOCYTES 10.2 % (2-11); NEUTROPHIL ABS# 8.55 10x3/uL (1.56-6.13); NEUTROPHILS 72.7 % (40-80); PLATELET COUNT 302 10x3/uL (130-400); RBC 4.24 10x6/uL (4.00-5.40); RDW 19.2 % (11.5-14.5); WBC 11.8 10x3/uL (4.8-10.8)
[2020-04-23 16:52] LABS: ALBUMIN 1.9 g/dL (3.4-5.0); ALKALINE PHOSPHATASE 175 U/L (30-120); ALT (SGPT) 29 U/L (10-68); BILIRUBIN - TOTAL 0.56 mg/dL (0.2-1.3); CALC OSMOLALITY 275 mosm/kg (275-300); CALCIUM 8.2 mg/dL (8.5-10.1); CHLORIDE - SERUM 104 mmol/L (98-107); CREATININE - SERUM 0.6 mg/dL (0.6-1.3); GLUCOSE 76 mg/dL (74-106); PROTEIN - SERUM 5.8 g/dL (6.4-8.2); SODIUM 140 mmol/L (136-145); UREA NITROGEN 8 mg/dL (7-18); eGFR NON AFRICAN AMERICAN > 90 mL/min (90-120)
[2020-04-23 16:55] LABS: POTASSIUM - SERUM 2.5 mmol/L (3.5-5.1)
--- NOTE | 2020-04-23 16:57 | NUR ---
CRITICAL LAB: K+ 2.5 DR ZHU AND CHALINO LU, RN
[2020-04-23 17:03] LABS: APTT 34.3 SECONDS (22.8-39.4)
[2020-04-23 17:04] LABS: INR 1.02 (0.85-1.17); PROTIME 12.4 SECONDS (11.6-15.0)
[2020-04-23 18:07] VITALS: BP 141/68
[2020-04-23 20:00] VITALS: BP 151/86
[2020-04-23 22:43] LABS: CKMB 0.8 U/L (0.0-3.6); CREATINE KINASE 38 UL (21-215); MAGNESIUM - SERUM 1.7 mg/dL (1.8-2.4)
[2020-04-23 22:44] LABS: TROPONIN-I < 0.017 ng/mL (0.000-0.060)
--- NOTE | 2020-04-24 00:20 | NUR ---
PT PULLED OUT IV CATHETER INTACT. IV 20 G IV RESITED TO LEFT AC BY DYLAN STAFFORD 1ST ATTEMPT. WRAPPED IN KERLIX TO HIDE IV LINE. NO OTHER NEEDS. BED ALARM AND RHONDA ALARMS ON. PROVIDED INCENTIVE SPIROMETER AND TEACHING ON USE. PT CONFUSED AND NEEDS MORE INSTRUCTION. TELEMETRY PLACED ON PT. TURNED PT ONTO LEFT SIDE TO SLEEP. WILL CONTINUE TO MONITOR.
[2020-04-24] MEDS ORDERED: ANORO ELLIPTA1 EACH INH (00:26)
[2020-04-24] MEDS ORDERED: ED-SPAZ0.125 MG PO (00:33)
[2020-04-24] MEDS ORDERED: LEXAPRO20 MG PO (00:33)
[2020-04-24 02:13] VITALS: BMI 14.2
[2020-04-24 04:00] VITALS: BP 116/69
[2020-04-24 06:42] LABS: BASOPHILS 0.2 % (0-2); EOSINOPHILS 2.6 % (0-7); HEMATOCRIT 36.3 % (36.0-48.0); HEMOGLOBIN 11.5 g/dL (12-16); IMMATURE GRANULOCYTES 0.2 % (0-5); LYMPHOCYTE ABS# 1.53 10x3/uL (1.18-3.74); MCH 28.8 pg (26.0-34.0); MCHC 31.7 g/dL (31.0-37.0); MEAN PLATELET VOLUME 9.2 fL (7.4-10.4); MONOCYTES 9.7 % (2-11); NEUTROPHILS 69.3 % (40-80); PLATELET COUNT 272 10x3/uL (130-400); RBC 3.99 10x6/uL (4.00-5.40); RDW 19.4 % (11.5-14.5)
[2020-04-24 07:00] LABS: WBC 8.5 10x3/uL (4.8-10.8)
[2020-04-24 07:13] LABS: ALBUMIN 1.6 g/dL (3.4-5.0); ALKALINE PHOSPHATASE 154 U/L (30-120); ALT (SGPT) 23 U/L (10-68); BILIRUBIN - TOTAL 0.45 mg/dL (0.2-1.3); CALC OSMOLALITY 274 mosm/kg (275-300); CALCIUM 7.9 mg/dL (8.5-10.1); CARBON DIOXIDE 29.8 mmol/L (21.0-32.0); CHLORIDE - SERUM 105 mmol/L (98-107); CREATININE - SERUM 0.5 mg/dL (0.6-1.3); GLUCOSE 88 mg/dL (74-106); MAGNESIUM - SERUM 1.6 mg/dL (1.8-2.4); PROTEIN - SERUM 5.1 g/dL (6.4-8.2); SODIUM 140 mmol/L (136-145); UREA NITROGEN 4 mg/dL (7-18); eGFR NON AFRICAN AMERICAN > 90 mL/min (90-120)
[2020-04-24 08:24] VITALS: Ht 160 cm; Wt 36.3 kg
[2020-04-24 09:23] VITALS: BP 103/68
--- NOTE | 2020-04-24 12:15 | NUR ---
PATIENT PREOPED ORDERED. IV INTACT. LIZAMA INTACT. BSCDS ON AND WORKING. CALL LIGHTW ITHIN REACH.
[2020-04-24 12:34] VITALS: BP 131/80
--- NOTE | 2020-04-24 13:30 | NUR ---
PATIENT TO OR.
--- NOTE | 2020-04-24 14:53 | NUR ---
OT NOTE: ORDER RECEIVED TO EVALUATE PT.. PT HAVING SURGERY TODAY. WILL EVAL FOLLOWING SURGERY. THANK YOU FOR REFERAL LUCILA ROSE OTR/L
--- NOTE | 2020-04-24 15:02 | NUR ---
THROUGH TRAFFIC KEPT TO A MINIMUM. HIBACLENS AND ALCOHOL USED TO CLEAN BEFORE PREPPING. STERILE GOWNED AND GLOVED TO PREP WITH CHLORAPREP.
--- NOTE | 2020-04-24 15:46 | NUR ---
RIGHT GREATER TOE WOUND ALREADY PRESENT UPON ARRIVAL TO OR OPEN WOUND.
[2020-04-24 19:46] LABS: BILIRUBIN NEGATIVE (NEGATIVE); KETONE NEGATIVE (NEGATIVE); NITRITE NEGATIVE (NEGATIVE); UROBILINOGEN NORMAL mg/dL (< 2)
[2020-04-24 19:47] LABS: BACTERIA MODERATE HPF (NONE SEEN); SQUAMOUS EPITHELIAL OCC HPF (0-4)
[2020-04-25 01:56] VITALS: BP 113/59
[2020-04-25 04:55] VITALS: BP 86/51
[2020-04-25 05:09] LABS: BASOPHILS 0.1 % (0-2); EOSINOPHILS 3.7 % (0-7); HEMATOCRIT 29.2 % (36.0-48.0); HEMOGLOBIN 9.6 g/dL (12-16); IMMATURE GRANULOCYTES 0.3 % (0-5); LYMPHOCYTE ABS# 1.48 10x3/uL (1.18-3.74); LYMPHOCYTES 18.9 % (15-50); MCH 29.3 pg (26.0-34.0); MCHC 32.9 g/dL (31.0-37.0); MEAN PLATELET VOLUME 9.2 fL (7.4-10.4); MONOCYTES 10.1 % (2-11); NEUTROPHIL ABS# 5.26 10x3/uL (1.56-6.13); NEUTROPHILS 66.9 % (40-80); RBC 3.28 10x6/uL (4.00-5.40); RDW 19.3 % (11.5-14.5); WBC 7.9 10x3/uL (4.8-10.8)
[2020-04-25 05:15] LABS: PLATELET COUNT 203 10x3/uL (130-400)
[2020-04-25 05:38] LABS: ALBUMIN 1.2 g/dL (3.4-5.0); ALKALINE PHOSPHATASE 170 U/L (30-120); ALT (SGPT) 21 U/L (10-68); CALC OSMOLALITY 270 mosm/kg (275-300); CALCIUM 7.3 mg/dL (8.5-10.1); CARBON DIOXIDE 26.3 mmol/L (21.0-32.0); CHLORIDE - SERUM 105 mmol/L (98-107); CREATININE - SERUM 0.6 mg/dL (0.6-1.3); GLUCOSE 101 mg/dL (74-106); PROTEIN - SERUM 3.9 g/dL (6.4-8.2); SODIUM 137 mmol/L (136-145); UREA NITROGEN 5 mg/dL (7-18); eGFR NON AFRICAN AMERICAN > 90 mL/min (90-120)
[2020-04-25 05:39] LABS: MAGNESIUM - SERUM 2.3 mg/dL (1.8-2.4); POTASSIUM - SERUM 3.5 mmol/L (3.5-5.1)
--- NOTE | 2020-04-25 07:53 | NUR ---
AWAKE AND ALERT. ORIENTED X3. NO C/O AT THIS TIME. LUNGS ARE CLEAR BILATERALLY, NO COUGH NOTED. USED IS INSTRUCTED. SKIN IS INTACT WITHOUT REDNESS EXCEPT INCISION TO RIGHT HIP WHICH HAS A DRY INTACT DRESSING IN PLACE. IV TO LEFT AC IS PATENT WITHOUT REDNESS AT INSERTION SITE. LIZAMA PATENT WITH SCANT AMOUNT OF CLEAR YELLOW URINE. DENIES NEEDS.
--- NOTE | 2020-04-25 08:21 | OP ---
PATIENT NAME: EDWARD LOCKE MEDICAL RECORD: [id number] :52 LOCATION:[id number] ADMISSION DATE:04/23/20 SURGEON: EDER WISE DO DATE OF OPERATION: 04/24/2020 PROCEDURE PERFORMED: Right marcella hip arthroplasty. PREOPERATIVE DIAGNOSIS: Right femoral neck fracture. POSTOPERATIVE DIAGNOSIS: Right femoral neck fracture. INDICATIONS: Ms. Locke is a 70-year-old female with dementia and does not ambulate a lot. According to her , she fell onto her right hip and had an impacted femoral neck fracture on the right. I talked to him about it and he said she did get up prior to falling and so with that in mind due to her dementia, I told him I think marcella would serve her best as far as what to do because it would allow her to bear weight right away. He is aware of the risks including infection, bleeding, damage to nerve or vessel, need for further surgery, continued pain, fracture, loosening of implants, failure of implants damage to nerves and vessels and he got consent over the telephone. SURGEON: Eder Wise DO DESCRIPTION OF PROCEDURE: The patient was taken to the operative suite, laid in supine position, given general anesthetic and intubated. She was given a gram of Ancef preoperatively and a half gram of TXA. She was then moved over to the Lequire table and positioned. The right hip was prepped and draped in sterile fashion. Timeout was performed, everyone was in agreement to the correct side site, and patient and procedure. I then made an incision over the tensor fascia shawn muscle, took the fascia into the muscle belly posteriorly and opened up the rectus interval of the rectus medially and tensor fascia shawn laterally. I then encountered the ascending branch of lateral femoral circumflex and coagulated with the Aquamantys. We then opened up the capsule put Hohmann's around the neck, opened up the capsule with the Bovie. She had a goldsmith of blood from the femoral neck fracture. Tagged the capsule, put Hohmanns around the neck intracapsularly and cut the neck and removed the head that was fractured subcapsularly. I then coagulated the ligamentum teres with Aquamantys and then opened up the femoral canal with a cookie cutter and canal finder and then broached up to 12; 12 fit well with a -6 neck on and reduced it. It appeared to be close to equal length to the left. She had the lesser trochanter broke off from IT fracture last year. The leg lengths appeared to be equal in x-ray and there were no fractures seen in the femur and a 12 stem fit very well. We then dislocated the hip, removed the trials and irrigated and then put in a 12 stem with a -6 neck and a 45 bipolar head, reduced it, fit very well. On x-ray, there were no fractures seen and good lengths of the foot compared to the left. We then irrigated with 10% povidone iodine solution and 500 mL of normal saline solution, irrigated out with a liter of normal saline and then I closed the capsule with #2 Ethibond. We then put in Otf and vancomycin and tobramycin powder and then closed the fascia shawn with #1 Vicryl in [id number] and running locking stitch and then closed the skin with 2-0 Vicryl in an inverted fashion, 4-0 Monocryl ran on the skin and placed Prineo glue on the skin. Once it was dry, placed Telfa and Tegaderm. She was then awakened and taken to recovery in stable condition. Blood loss was approximately 200 mL. OPERATIVE REPORT [id number] EDWARD LOCKE COMPLICATIONS: None. TRANSINT:[id number] Voice Confirmation ID: [id number] DOCUMENT ID: [id number] EDER WISE DO at 0821 CC: [id number] DICTATION DATE: 04/24/20 1539 PRIMARY CARE PHYSICIAN: 04/25/20 0056 [facility] [address] [id number]
--- NOTE | 2020-04-25 08:32 | NUR ---
REQUESTED AND GIVEN ONE HYDROCODONE 5MG PO FOR C/O RIGHT HIP PAIN LEVEL 10. WILL MONITOR.
[2020-04-25 09:07] VITALS: BP 95/57
--- NOTE | 2020-04-25 09:30 | NUR ---
REFUSED BREAKFAST AND OFFERS OF ALTERNATIVE MEALS. UP TO CHAIR MAX ASSIST OF ONE PER PT. WILL MONITOR.
--- NOTE | 2020-04-25 10:00 | NUR ---
UP TO CHIAR AT BEDSIDE MAX ASSIST OF ONE.
[2020-04-25 11:53] VITALS: BP 73/44
--- NOTE | 2020-04-25 12:30 | NUR ---
LUNCH SERVED IN ROOM. FEEDS SELF. ATE ALMOST 50% OF MEAL.
--- NOTE | 2020-04-25 13:08 | NUR ---
REQUESTED AND GIVNE A HYDROCODONE 10MG PO FOR C/O RIGHT HIP PAIN LEVEL 8. WILL MONITOR.
[2020-04-25 15:14] LABS: HEMATOCRIT 30.4 % (36.0-48.0); HEMOGLOBIN 9.7 g/dL (12-16)
[2020-04-25 17:20] VITALS: BP 82/44
[2020-04-25 20:00] VITALS: BP 101/60
[2020-04-26 04:00] VITALS: BP 74/42
[2020-04-26 05:31] LABS: BASOPHILS 0.2 % (0-2); EOSINOPHILS 6.5 % (0-7); HEMATOCRIT 27.8 % (36.0-48.0); HEMOGLOBIN 8.9 g/dL (12-16); IMMATURE GRANULOCYTES 0.3 % (0-5); LYMPHOCYTE ABS# 1.39 10x3/uL (1.18-3.74); MCH 29.1 pg (26.0-34.0); MCV 90.8 fL (80.0-100.0); MONOCYTES 8.9 % (2-11); NEUTROPHIL ABS# 3.92 10x3/uL (1.56-6.13); NEUTROPHILS 62.1 % (40-80); PLATELET COUNT 173 10x3/uL (130-400); RBC 3.06 10x6/uL (4.00-5.40); RDW 19.8 % (11.5-14.5); WBC 6.3 10x3/uL (4.8-10.8)
[2020-04-26 05:44] LABS: ALBUMIN 1.2 g/dL (3.4-5.0); ALKALINE PHOSPHATASE 158 U/L (30-120); ALT (SGPT) 13 U/L (10-68); BILIRUBIN - TOTAL 0.42 mg/dL (0.2-1.3); CALC OSMOLALITY 272 mosm/kg (275-300); CALCIUM 7.1 mg/dL (8.5-10.1); CARBON DIOXIDE 30.5 mmol/L (21.0-32.0); CHLORIDE - SERUM 107 mmol/L (98-107); CREATININE - SERUM 0.7 mg/dL (0.6-1.3); GLUCOSE 81 mg/dL (74-106); POTASSIUM - SERUM 3.5 mmol/L (3.5-5.1); PROTEIN - SERUM 3.8 g/dL (6.4-8.2); SODIUM 138 mmol/L (136-145); UREA NITROGEN 6 mg/dL (7-18); eGFR NON AFRICAN AMERICAN 88 mL/min (90-120)
--- NOTE | 2020-04-26 08:19 | NUR ---
AWAKE AND ALERT. ORIENTED X3. NO C/O AT THIS TIME REQUESTED AND PLACED ON BEDPAN. IV IS LEAKING EVERYWHERE. D/C CATHETER WITH CATHETER INTACT. RESITED TO RIGHT FOREARM AFTER ONE ATTEMPT WITH 22G. TOLERATED WITHOUT C/O PAIN OR DISCOMFORT. LUNGS ARE CLEAR BILATERALLY, NO COUGH NOTED. SKIN IS INTACT WITHOUT REDNESS EXCEPT INCISION TO RIGHT GROIN AREA WHICH HAS A DRY INTACT DRESSING IN PLACE. DENIES NEEDS.
--- NOTE | 2020-04-26 09:00 | NUR ---
ATE MOST OF BREAKFAST. TOOK AM MEDS IN APPLESAUCE. DENIES NEEDS.
[2020-04-26 09:30] VITALS: BP 144/82
--- NOTE | 2020-04-26 10:00 | NUR ---
ATE ABOUT 25% OF BREAKFAST. TOOK AM MEDS WITHOUT DIFFICULTY. REQUESTED AND GIVEN ONE HYDROCODONE PO FOR C/O RIGHT HIP PAIN LEVEL 7. WILL MONITOR. UP TO CHIAR AT BEDSIDE PER PT.
--- NOTE | 2020-04-26 11:05 | NUR ---
REQUESTED AND GIVEN 0.5 MG DILAUDID SLOW IVP FOR C/O NECK/ARM PAIN LEVEL 8. WILL MONITOR,
--- NOTE | 2020-04-26 12:12 | NUR ---
C/O STOMACH ACHE. GIVEN 4MG ZOFRAN SLOW IVP FOR SAME. WILL MONITOR.
--- NOTE | 2020-04-26 12:30 | NUR ---
SITTING UP IN BED EATING LUNCH PER SELF. TOOK 2 STEPS WITH TRANSFER FROM CHAIR TO BED WITH RW. DENIES NEEDS.
[2020-04-26 13:05] VITALS: BP 118/70
--- NOTE | 2020-04-26 13:30 | NUR ---
REPORTS STOMACH FEELS FINE NOW. DENIES NEEDS.
[2020-04-26 17:02] VITALS: BP 104/61
--- NOTE | 2020-04-26 18:20 | NUR ---
REFUSED SUPPER TRAY AND OFFERS OF ALTERNATIVES. HAD SMALL DARK STOOL ON BED BLISS. SKIN CARE PER STAFF. REPOSITIONED IN BED FOR COMFORT.
[2020-04-26 20:00] VITALS: BP 92/52
--- NOTE | 2020-04-26 21:10 | NUR ---
AWAKE,ALERT.NO COMPLAINTS AT PRESENT. IV TO RFA INTACT WITHOUT REDNESS OR EDEMA NOTED.LIZAMA PATENT AND DRAINING CLEAR YELLOW URINE. DRESSING TO RIGHT HIP INTACT WITHOUT DRAINAGE NOTED. FALL PRECAUTIONS IN PLACE. BED ALARM ON
[2020-04-27] VITALS: BP 107/66
--- NOTE | 2020-04-27 03:47 | NUR ---
I have reviewed this patient and I concur with the Shift Assessment completed by the Licensed Practical Nurse today this shift.
[2020-04-27 04:00] VITALS: BP 93/53
[2020-04-27 06:28] LABS: ALBUMIN 1.1 g/dL (3.4-5.0); ALKALINE PHOSPHATASE 161 U/L (30-120); ALT (SGPT) 11 U/L (10-68); BILIRUBIN - TOTAL 0.47 mg/dL (0.2-1.3); CALC OSMOLALITY 274 mosm/kg (275-300); CALCIUM 7.3 mg/dL (8.5-10.1); CARBON DIOXIDE 27.9 mmol/L (21.0-32.0); CHLORIDE - SERUM 109 mmol/L (98-107); CREATININE - SERUM 0.7 mg/dL (0.6-1.3); GLUCOSE 76 mg/dL (74-106); MAGNESIUM - SERUM 1.7 mg/dL (1.8-2.4); POTASSIUM - SERUM 3.1 mmol/L (3.5-5.1); PROTEIN - SERUM 3.9 g/dL (6.4-8.2); SODIUM 139 mmol/L (136-145); UREA NITROGEN 6 mg/dL (7-18); eGFR NON AFRICAN AMERICAN 88 mL/min (90-120)
[2020-04-27 06:46] LABS: BASOPHILS 0.1 % (0-2); EOSINOPHILS 6.4 % (0-7); HEMATOCRIT 26.2 % (36.0-48.0); HEMOGLOBIN 8.4 g/dL (12-16); IMMATURE GRANULOCYTES 0.3 % (0-5); LYMPHOCYTE ABS# 1.51 10x3/uL (1.18-3.74); LYMPHOCYTES 21.3 % (15-50); MCH 29.2 pg (26.0-34.0); MCHC 32.1 g/dL (31.0-37.0); MEAN PLATELET VOLUME 9.4 fL (7.4-10.4); MONOCYTES 8.9 % (2-11); NEUTROPHIL ABS# 4.46 10x3/uL (1.56-6.13); RBC 2.88 10x6/uL (4.00-5.40); RDW 19.9 % (11.5-14.5); WBC 7.1 10x3/uL (4.8-10.8)
[2020-04-27 06:47] LABS: PLATELET COUNT 222 10x3/uL (130-400)
[2020-04-27 07:49] VITALS: BP 109/61
--- NOTE | 2020-04-27 10:06 | MORECARE ---
CASE MANAGEMENT DISCHARGE SUMMARY PATIENT: EDWARD MURILLO UNIT: [id number] ADM DATE: 04/23/20 AGE: 70 : 51 SEX: F ROOM/BED: D.2213 AUTHOR: ANNABEL MARTINEZ PHYSICIAN: REFERRING PHYSICIAN: KAMILLA JEAN MD DATE OF SERVICE: 04/27/20 Discharge Plan Patient Name: EDWARD MURILLO [facility] [facility] 1950 Planned Disposition: Inpatient Rehab Anticipated Discharge Date: Discharge Date: Expected LOS: Initial Reviewer: [email or web address] Initial Review Date: 04/23/2020 Generated: 04/27/20 11:05 am DCPIA - Discharge Planning Initial Assessment Updated by [email or web address]: Adelaida Ahmadi on 04/27/20 10:03 am * Is the patient Alert and Oriented? Yes * How many steps to enter\exit or inside your home? * PCP [facility] * Pharmacy CAN'T REMEMBER * Preadmission Environment Hospice * Facility Name [facility] * ADLs Partial Dependent * Partial ADLs (Assistance needed) Ambulation Bathing Medication Management * Equipment Bedside Commode Elevated Toliet Seat Rolling Walker Shower Chair Walker Wheelchair * List name and contact numbers for known caregivers / representatives who currently or will assist patient after discharge: SILVIO MURILLO [phone] * Verbal permission to speak to the caregivers and representatives has been obtained from the patient. N/A * Community resources currently utilized Hospice Home * Please name any agencies selected above. [facility] * Additional services required to return to the preadmission environment? Yes * Can the patient safely return to the preadmission environment? No * Has this patient been hospitalized within the prior 30 days at any hospital? No Patient Name: EDWARD MURILLO Page [phone] at 1006 All edits/amendments must be made on the electronic document DICTATION DATE: 04/27/20 1006 MANAGER BUSINESS BANKING: SYLVAIN 04/27/20 1006 RPT#: [id number] DC DATE: STATUS: ADM IN [facility] [address] [place] [address] END OF REPORT
--- NOTE | 2020-04-27 10:14 | MORECARE ---
CASE MANAGEMENT DISCHARGE SUMMARY PATIENT: EDWARD MURILLO UNIT: [id number] ADM DATE: 04/23/20 AGE: 70 : 51 SEX: F ROOM/BED: D.2213 AUTHOR: ANNABEL MARTINEZ PHYSICIAN: REFERRING PHYSICIAN: KAMILLA JEAN MD DATE OF SERVICE: 04/27/20 Discharge Plan Patient Name: EDWARD MURILLO Facility: [facility]:[place] : 1950 Planned Disposition: Inpatient Rehab Anticipated Discharge Date: Discharge Date: Expected LOS: Initial Reviewer: [email or web address] Initial Review Date: 04/23/2020 Generated: 04/27/20 11:14 am Comments DCP- Discharge Planning Updated by [email or web address]: Adelaida Ahmadi on 04/27/20 8:[address] Patient Name: EDWARD MURILLO Admission Status: ER Accout number: [id number] Admission Date: 04-23-2020 : 1950 Admission Diagnosis: Attending: SOHA JEAN Current LOS: 4 Anticipated DC Date: Planned Disposition: Inpatient Rehab Primary Insurance: MEDICARE A & B Discharge Planning Comments: CM met with patient to complete initial dc planning assessment. CM educated patient on the CM role and verbal consent given by patient to complete assessment. Patient lives at home with her spouse where she was partially dependent at home. At discharge patient plans to return home and feels this is a safe discharge. I asked her about hospice and she denied being on hospice. She was very tearful and hurting. She gave permission for me to call her . I called her Gregg and he stated that she was on Hospice at home with [facility]. He would like her to go to inpatient rehab at [facility] then plans to return home with [facility]. He stated that she has a walker, wheelchair, BSC, and shower chair at home. Per her she was not talking much, but could with assistance. MONICA done via phone. CM will continue to follow and will assist as needed with dc plans/needs Staff Respiratory Therapist: Adelaida Ahmadi DCPIA - Discharge Planning Initial Assessment Updated by [email or web address]: Adelaida Ahmadi on 04/27/20 10:03 am * Is the patient Alert and Oriented? Yes * How many steps to enter\exit or inside your home? * PCP [facility] * Pharmacy CAN'T REMEMBER * Preadmission Environment Hospice * Facility Name [facility] * ADLs Partial Dependent * Partial ADLs (Assistance needed) Ambulation Bathing Medication Management * Equipment Bedside Commode Elevated Toliet Seat Rolling Walker Shower Chair Walker Wheelchair * List name and contact numbers for known caregivers / representatives who currently or will assist patient after discharge: GREGG MURILLO [phone] * Verbal permission to speak to the caregivers and representatives has been obtained from the patient. N/A * Community resources currently utilized [facility]ospice Home * Please name any agencies selected above. [facility] * Additional services required to return to the preadmission environment? Yes * Can the patient safely return to the preadmission environment? No * Has this patient been hospitalized within the prior 30 days at any hospital? No Coverage Notice Reviewer: [email or web address] Geno Ahmadi Notice Issued Date-Time: 04/27/2020 10:00 Notice Type: Patient Choice Letter Notice Delivered To: Family Member Relationship to Patient: Spouse Manager Product Marketing Name: gregg Delivery Method: PHONE - Phone Jannet Days: Prior Verbal Notification: Recipient Understood Notice: Yes Recipient Signature: Yes Med Rec Note Co-signed by Attending: Coverage Notice Comment: [facility] Last DP export: 04/27/20 8:06 a Patient Name: EDWARD MURILLO Page [phone] at 1014 All edits/amendments must be made on the electronic document DICTATION DATE: 04/27/20 1014 BILLET CHECKER: SYLVAIN 04/27/20 1014 RPT#: [id number] DC DATE: STATUS: ADM IN [facility] [address] [place] [address] END OF REPORT
[2020-04-27] MEDS ORDERED: IPRAT-ALBUT 0.5-3 ML INH (11:22)
[2020-04-27] MEDS ORDERED: Benadryl INJ IV (11:22)
[2020-04-27] MEDS ORDERED: ATROVENT 0.02%2.5 ML UPD (11:22)
[2020-04-27] MEDS ORDERED: ASPIRIN81 MG PO (11:23)
[2020-04-27] MEDS ORDERED: HYDROCODON-ACE1 EA10 PO (11:23)
[2020-04-27] MEDS ORDERED: DILAUDID INJ2 MG/ML IV (11:23)
[2020-04-27] MEDS ORDERED: LOVENOX40 MG/0.4 SC (11:23)
[2020-04-27] MEDS ORDERED: Narcan INJ IV (11:23)
[2020-04-27] MEDS ORDERED: HYDROCODON-ACE1 EAC7 PO (11:23)
[2020-04-27] MEDS ORDERED: ZOFRAN4 MG PO (11:24)
[2020-04-27] MEDS ORDERED: COLACE100 MG PO (11:24)
--- NOTE | 2020-04-27 13:28 | NUR ---
Nutrition follow-up: Diet order: Reglar as tolerated PO intake 25, 25, 75% of last 3 meals Pt is also refusing some meals Labs reviewed +BM Wt: 80# PO intake poor to fair; RDN will order Ensure with meals Follow-up: 05/01/20
--- NOTE | 2020-04-27 15:29 | MORECARE ---
CASE MANAGEMENT DISCHARGE SUMMARY PATIENT: EDWARD MURILLO UNIT: [id number] ADM DATE: 04/23/20 AGE: 70 : 51 SEX: F ROOM/BED: D.2213 AUTHOR: ANNABEL MARTINEZ PHYSICIAN: REFERRING PHYSICIAN: KAMILLA JEAN MD DATE OF SERVICE: 04/27/20 Discharge Plan Patient Name: EDWARD MURILLO Facility: [facility]:[place] : 1950 Planned Disposition: Inpatient Rehab Anticipated Discharge Date: Discharge Date: Expected LOS: Initial Reviewer: [email or web address] Initial Review Date: 04/23/2020 Generated: 04/27/20 4:28 pm Comments DCP- Discharge Planning Updated by [email or web address]: Adelaida Ahmadi on 04/27/20 1:[address] imm served and explained over the phone with patient's spouse Gregg DCP- Discharge Planning Updated by [email or web address]: Adelaida Ahmadi on 04/27/20 8:[address] Patient Name: EDWARD MURILLO Admission Status: ER Accout number: [id number] Admission Date: 04-23-2020 : 1950 Admission Diagnosis: Attending: SOHA JEAN Current LOS: 4 Anticipated DC Date: Planned Disposition: Inpatient Rehab Primary Insurance: MEDICARE A & B Discharge Planning Comments: CM met with patient to complete initial dc planning assessment. CM educated patient on the CM role and verbal consent given by patient to complete assessment. Patient lives at home with her spouse where she was partially dependent at home. At discharge patient plans to return home and feels this is a safe discharge. I asked her about hospice and she denied being on hospice. She was very tearful and hurting. She gave permission for me to call her . I called her Gregg and he stated that she was on Hospice at home with [facility]. He would like her to go to inpatient rehab at [facility] then plans to return home with [facility]. He stated that she has a walker, wheelchair, BSC, and shower chair at home. Per her she was not talking much, but could with assistance. MONICA done via phone. CM will continue to follow and will assist as needed with dc plans/needs Car Icer: Adelaida Ahmadi DCPIA - Discharge Planning Initial Assessment Updated by [email or web address]: Adelaida Ahmadi on 04/27/20 10:03 am * Is the patient Alert and Oriented? Yes * How many steps to enter\exit or inside your home? * [facility]CP [facility] * Pharmacy CAN'T REMEMBER * Preadmission Environment Hospice * Facility Name [facility] * ADLs Partial Dependent * Partial ADLs (Assistance needed) Ambulation Bathing Medication Management * Equipment Bedside Commode Elevated Toliet Seat Rolling Walker Shower Chair Walker Wheelchair * List name and contact numbers for known caregivers / representatives who currently or will assist patient after discharge: GREGG MURILLO [phone] * Verbal permission to speak to the caregivers and representatives has been obtained from the patient. N/A * Community resources currently utilized Hospice Home * Please name any agencies selected above. [facility] * Additional services required to return to the preadmission environment? Yes * Can the patient safely return to the preadmission environment? No * Has this patient been hospitalized within the prior 30 days at any hospital? No Coverage Notice Reviewer: [email or web address] Geno Amhadi Notice Issued Date-Time: 04/27/2020 10:00 Notice Type: Patient Choice Letter Notice Delivered To: Family Member Relationship to Patient: Spouse Negative Turner Apprentice Name: gregg Delivery Method: PHONE - Phone Jannet Days: Prior Verbal Notification: Recipient Understood Notice: Yes Recipient Signature: Yes Med Rec Note Co-signed by Attending: Coverage Notice Comment: [facility] Reviewer: [id number] Geno Ahmadi Notice Issued Date-Time: 04/27/2020 15:23 Notice Type: IM Discharge Notice Notice Delivered To: Family Member Relationship to Patient: Spouse Negative Turner Apprentice Name: gregg Delivery Method: PHONE - Phone Jannet Days: Prior Verbal Notification: Yes Recipient Understood Notice: Yes Recipient Signature: Med Rec Note Co-signed by Attending: Coverage Notice Comment: imm served via phone with spouse Last DP export: 04/27/20 8:14 a Patient Name: EDWARD MURILLO Page [phone] at 7279 All edits/amendments must be made on the electronic document DICTATION DATE: 04/27/20 1529 PASSENGER TIRE INSPECTOR: SYLVAIN 04/27/20 1529 RPT#: [id number] DC DATE: STATUS: ADM IN [facility] [address] [place] [address] END OF REPORT
[2020-04-27 16:51] VITALS: BP 76/45
[2020-04-27 18:05] VITALS: BP 102/64
== END 2020-04-27 18:16 | DRG 521 ==
LOC: D.ER 13:36 → D.MS 18:12 → D.EDHOLD 18:12 → D.MS 18:38
PROVIDERS: Emergency Medicine; Family Medicine; Family Medicine Adult Medicine; Orthopaedic Surgery; ADMIT Emergency Medicine; ATTEND Emergency Medicine
PROC: 0SR90JZ Replacement of Right Hip Joint with Synthetic Substitute, Open Approach (ICD-10-PCS; principal; 2020-04-24 14:00)
DX: S72.001A Fracture of unspecified part of neck of right femur, initial encounter for closed fracture (principal); E43 Unspecified severe protein-calorie malnutrition; Z68.1 Body mass index [BMI] 19.9 or less, adult; W19.XXXA Unspecified fall, initial encounter; R91.8 Other nonspecific abnormal finding of lung field; I25.10 Atherosclerotic heart disease of native coronary artery without angina pectoris; Z87.891 Personal history of nicotine dependence; G35 Multiple sclerosis; E87.6 Hypokalemia; E83.42 Hypomagnesemia; E78.5 Hyperlipidemia, unspecified; E03.9 Hypothyroidism, unspecified; I10 Essential (primary) hypertension; G30.9 Alzheimer's disease, unspecified; F02.80 Dementia in other diseases classified elsewhere, unspecified severity, without behavioral disturbance, psychotic disturbance, mood disturbance, and anxiety; J44.9 Chronic obstructive pulmonary disease, unspecified; F31.9 Bipolar disorder, unspecified; Z86.73 Personal history of transient ischemic attack (TIA), and cerebral infarction without residual deficits

== ENCOUNTER 2020-04-27 17:16 | Inpatient (IN) | payer MEDICARE, OTHER ==
[~2020-04-27] VITALS: Ht 160 cm; Wt 43.1 kg
[~2020-04-27 17:16] MED LIST changes: +ATROVENT 0.02%2.5 ML UPD; +Benadryl INJ IV; +DILAUDID INJ2 MG/ML IV; +ED-SPAZ0.125 MG PO; +LEXAPRO20 MG PO; +Narcan INJ IV
--- NOTE | 2020-04-27 18:22 | NUR ---
FROM MED SURG VIA BED. SHE HAS A SL IN THE RIGHT ARM. THE CALL LIGHT IS WITHIN REACH.
[2020-04-27 18:50] VITALS: BP 98/55
[2020-04-27 20:20] VITALS: BP 89/54
[2020-04-27 22:14] VITALS: BP 98/59; BMI 16.8
--- NOTE | 2020-04-28 01:09 | NUR ---
I have reviewed this patient and I concur with the Shift Assessment completed by the Licensed Practical Nurse today this shift.
--- NOTE | 2020-04-28 02:08 | NUR ---
PT RESTING WITH EYES CLOSED, RESPIRATIONS EVEN AND UNLABORED. BED IS LOW, BED ALARM ON AND CALL LIGHT WITHIN REACH.
[2020-04-28 05:53] LABS: BASOPHILS 0.1 % (0-2); EOSINOPHILS 8.6 % (0-7); HEMATOCRIT 29.9 % (36.0-48.0); HEMOGLOBIN 9.5 g/dL (12-16); IMMATURE GRANULOCYTES 0.1 % (0-5); LYMPHOCYTES 30.2 % (15-50); MCH 29.2 pg (26.0-34.0); MCHC 31.8 g/dL (31.0-37.0); MEAN PLATELET VOLUME 8.8 fL (7.4-10.4); MONOCYTES 5.5 % (2-11); NEUTROPHIL ABS# 4.04 10x3/uL (1.56-6.13); NEUTROPHILS 55.5 % (40-80); PLATELET COUNT 252 10x3/uL (130-400); RBC 3.25 10x6/uL (4.00-5.40); RDW 19.8 % (11.5-14.5); WBC 7.3 10x3/uL (4.8-10.8)
[2020-04-28 06:17] LABS: CALC OSMOLALITY 277 mosm/kg (275-300); CALCIUM 7.6 mg/dL (8.5-10.1); CARBON DIOXIDE 26.8 mmol/L (21.0-32.0); CHLORIDE - SERUM 109 mmol/L (98-107); CREATININE - SERUM 0.8 mg/dL (0.6-1.3); GLUCOSE 78 mg/dL (74-106); POTASSIUM - SERUM 3.3 mmol/L (3.5-5.1); SODIUM 141 mmol/L (136-145); UREA NITROGEN 7 mg/dL (7-18); eGFR NON AFRICAN AMERICAN 75 mL/min (90-120)
[2020-04-28 07:36] VITALS: BP 117/60
--- NOTE | 2020-04-28 10:08 | NUR ---
SHE IS C/O PAIN, PRN GIVEN. SHE HAS A DRESSING ON HER RIGHT HIP. MEPILEX TO HER COCCXY. SHE IS VERY FORGETFUL. THE CALL LIGHT IS WITHIN REACH AND THE BED ALARM IS ON.
[2020-04-28 10:19] VITALS: BP 105/65
[2020-04-28 14:08] VITALS: Ht 160 cm; Wt 43.1 kg
--- NOTE | 2020-04-28 19:19 | NUR ---
AWAKE AND ALERT. RESTING IN BED WITH RESPIRATIONS UNLABORED. DRESSING INTACT TO RIGHT HIP. RIGHT FOREARM SALINE LOCK INTACT WITH NO SIGNS OF INFILTRATION. STATES SHE FEELS OKAY BUT JUST WANTS TO SLEEP. MEPILEX DRESSING INTACT TO BUTTOCKS.
[2020-04-28 20:34] VITALS: BP 108/60
--- NOTE | 2020-04-29 01:31 | NUR ---
SLEEPING WITH NO DISTRESS NOTED. CALL LIGHT IN REACH.
--- NOTE | 2020-04-29 05:15 | NUR ---
SLEPT PART OF SHIFT. YELLS OUT "HELP ME" LOUDLY WHEN SHE WANTS SOMETHING. I REVIEWED CALL LIGHT USE WITH HER SEVERAL TIMES THIS SHIFT. CURRENTLY RESTING IN BED WITH RESPIRATIONS UNLABORED. CALL LIGHT IN REACH.
[2020-04-29 06:20] LABS: BASOPHILS 0.2 % (0-2); EOSINOPHILS 6.8 % (0-7); HEMATOCRIT 25.8 % (36.0-48.0); HEMOGLOBIN 8.3 g/dL (12-16); IMMATURE GRANULOCYTES 0.2 % (0-5); LYMPHOCYTE ABS# 1.39 10x3/uL (1.18-3.74); LYMPHOCYTES 22.9 % (15-50); MCH 29.3 pg (26.0-34.0); MCHC 32.2 g/dL (31.0-37.0); MCV 91.2 fL (80.0-100.0); MEAN PLATELET VOLUME 9.2 fL (7.4-10.4); MONOCYTES 7.4 % (2-11); NEUTROPHIL ABS# 3.79 10x3/uL (1.56-6.13); NEUTROPHILS 62.5 % (40-80); PLATELET COUNT 281 10x3/uL (130-400); RBC 2.83 10x6/uL (4.00-5.40); WBC 6.1 10x3/uL (4.8-10.8)
[2020-04-29 06:58] LABS: CALC OSMOLALITY 275 mosm/kg (275-300); CALCIUM 7.5 mg/dL (8.5-10.1); CARBON DIOXIDE 23.9 mmol/L (21.0-32.0); CHLORIDE - SERUM 109 mmol/L (98-107); CREATININE - SERUM 0.6 mg/dL (0.6-1.3); GLUCOSE 75 mg/dL (74-106); SODIUM 140 mmol/L (136-145); UREA NITROGEN 8 mg/dL (7-18); eGFR NON AFRICAN AMERICAN > 90 mL/min (90-120)
[2020-04-29 07:06] LABS: POTASSIUM - SERUM 2.9 mmol/L (3.5-5.1)
--- NOTE | 2020-04-29 08:00 | NUR ---
PATIENT IS ALERT WITH SOME CONFUSION NOTED. CALL LIGHT WITHIN REACH, BUT HOLLERS OUT TO STAFF WHEN SHE NEEDS SOMETHING. VOICES NO NEEDS AT THIS TIME. WILL CONTINUE WITH PLAN OF CARE
[2020-04-29 09:30] VITALS: BP 148/81
--- NOTE | 2020-04-29 10:21 | NUR ---
PATIENT REFUSED TO EAT BREAKFAST. HELPED TO BATHROOM. MODERATE ASST OF ONE FROM WHEELCHAIR TO TOILET.
--- NOTE | 2020-04-29 10:46 | NUR ---
PATIENT ADMITTED TO REHAB FROM ACUTE FLOOR. PATIENT IS A CLIENT OF [facility] AND AT DISCHARGE WISHES TO CONTINUE. DME AT HOME: WALKER, WHEELCHAIR, BEDSIDE COMMODE AND A SHOWER CHAIR. KAY HAS A PENDING APPOINTMENT WITH DR. NAM ON 05/14/20 @ 2:30. WILL CONTINUE TO FOLLOW WITH PATIENT.
--- NOTE | 2020-04-29 12:16 | NUR ---
PATIENT REFUSED LUNCH. ON THE PHONE TALKING TO PATIENT. STATED HE TRIED TO TALK HER INTO EATTING. DR JEAN IN. NEW ORDER FOR IVÁN RECEIVED
--- NOTE | 2020-04-29 13:42 | NUR ---
CARE TEAM MEETING: PATIENT IS NEW TO UNIT AND WILL BE RA AT NEXT MEETING. WILL CONTINUE TO FOLLOW WITH PATIENT.
--- NOTE | 2020-04-29 14:05 | NUR ---
I have reviewed this patient and I concur with the Shift Assessment completed by the Licensed Practical Nurse today this shift.
--- NOTE | 2020-04-29 14:51 | NUR ---
PATIENT RESTING AFTER PHYSICAL THERAPY. IN BED WITH EYES CLOSED. CALL LIGHT WITHIN REACH.
--- NOTE | 2020-04-29 16:03 | NUR ---
PRN PAIN MEDICATION GIVEN FOR RIGHT HIP INCISIONAL PAIN/DISC PER PATIENT REQUEST
[2020-04-29 20:30] VITALS: BP 112/70
--- NOTE | 2020-04-29 20:30 | NUR ---
CHECKING VITAL SIGNS AND PASSING PM MEDICATIONS AND PT WAS AGITATED THAT I WOKE HER UP. SHE STATED 3 DIFFERENT TIMES, "JUST HURRY UP AND GET THIS OVER WITH, I JUST WANT TO SLEEP." SHE REPORTS PAIN 6/10 TO RIGHT HIP. HYDROCODONE GIVEN ORDERED. SHE THEN STATES SHE NEEDED TO PEE. ASSISTED TO WHEELCHAIR AND BACK TO BED. SHE WANTED TO TALK TO HER BEFORE BED BUT COULD NOT REMEMBER HIS NUMBER. LOOKED IT UP AND WROTE IT ON THE BOARD FOR FUTURE REFERENCE AND CALLED HIM FOR HER. SHE TOLD HIM SOMEONE HAD JUST CALLED HER PHONE (THE HOSPITAL PHONE IN HER ROOM) BUT THE WHOLE TIME I WAS IN HER ROOM, THE PHONE DID NOT RING. SHE IS FORGETFUL, ANXIOUS AND WITHDRAWN. KLONOPIN GIVEN ORDERED. HER BED IS LOW, BED ALARM ON AND CALL LIGHT WITHIN REACH.
--- NOTE | 2020-04-30 07:27 | NUR ---
PT RESTING IN BED WITH EYES OPEN CALL LIGHT IN REACH WILL MONITER
--- NOTE | 2020-04-30 18:11 | NUR ---
PT RESTING IN BED WITH EYES OPEN CALL LIGHT IN REACH WILL MONITER
[2020-04-30 19:58] VITALS: BP 127/75
--- NOTE | 2020-04-30 20:45 | NUR ---
PT AGITATED AND TEARFUL. SHE IS UPSET THAT WE KEEP WAKING HER UP. EXPLAINED TO HER THAT IT IS IMPORTANT THAT WE GET HER VITAL SIGNS, THAT SHE HAVE HER ORDERED BREATHING TREATMENT AND ORDERED MEDICATIONS AND AFTER THAT SHE CAN GO TO BED. SHE REPORTS PAIN 8/10 TO THE RIGHT HIP. HYDROCODONE GIVEN ORDERED. SHE WANTED ME TO DIAL HER HUSBANDS NUMBER FOR HER. SHE WAS VERY TEARFUL ON THE PHONE WITH HIM. AFTER TALKING TO HIM SHE FELT BETTER AND WAS READY FOR BED. GAVE HER AN ENSURE AND CRACKERS AND SHE REFUSED. 2200-SHE C/O NAUSEA. ZOFRAN GIVEN. OFFERED TO GET HER A SNACK BUT SHE DECLINED.
[2020-05-01 06:58] LABS: BASOPHILS 0.2 % (0-2); EOSINOPHILS 5.8 % (0-7); HEMATOCRIT 25.5 % (36.0-48.0); HEMOGLOBIN 8.1 g/dL (12-16); IMMATURE GRANULOCYTES 0.4 % (0-5); MCH 28.6 pg (26.0-34.0); MCHC 31.8 g/dL (31.0-37.0); MCV 90.1 fL (80.0-100.0); MEAN PLATELET VOLUME 8.9 fL (7.4-10.4); MONOCYTES 7.8 % (2-11); NEUTROPHIL ABS# 3.23 10x3/uL (1.56-6.13); NEUTROPHILS 59.8 % (40-80); PLATELET COUNT 258 10x3/uL (130-400); RBC 2.83 10x6/uL (4.00-5.40); WBC 5.4 10x3/uL (4.8-10.8)
[2020-05-01 07:07] LABS: CALC OSMOLALITY 275 mosm/kg (275-300); CALCIUM 7.4 mg/dL (8.5-10.1); CARBON DIOXIDE 25.1 mmol/L (21.0-32.0); CHLORIDE - SERUM 109 mmol/L (98-107); CREATININE - SERUM 0.6 mg/dL (0.6-1.3); GLUCOSE 79 mg/dL (74-106); POTASSIUM - SERUM 3.6 mmol/L (3.5-5.1); SODIUM 140 mmol/L (136-145); UREA NITROGEN 6 mg/dL (7-18); eGFR NON AFRICAN AMERICAN > 90 mL/min (90-120)
--- NOTE | 2020-05-01 07:27 | NUR ---
PT RESTING IN BED WITH EYES OPEN CALL LIGHT IN REACH WILL MONITER
[2020-05-01 13:55] VITALS: BP 118/68
--- NOTE | 2020-05-01 18:40 | NUR ---
PT RESTING IN BED WITH EYES OPEN CALL LIGHT IN REACH NO PROBLEMS WILL MONITER
[2020-05-01 20:03] VITALS: BP 122/79
--- NOTE | 2020-05-01 20:15 | NUR ---
PATIENT RECEIVED YELLING FOR HER . PATIENT TOLD NOT HERE. ASSESSMENT & VITAL SIGNS DONE. RIGHT HIP DRESSING C/D/I. PATIENT SHOWN THE CALL LIGHT & TO PUSH RED BUTTON FOR HELP. PATIENT UNDERSTOOD. ALARM ON. CALL LIGHT WITHIN REACH. WILL CONTINUE TO MONITOR.
--- NOTE | 2020-05-01 23:49 | NUR ---
PATIENT USED CALL LIGHT FOR ASSIST. PATIENT MOD ASSIST IN & OUT OF WHEELCHAIR. DRESSING TO RIGHT HIP OFF, NEW DRESSING APPLIED. MODERATE ASSIST INTO WHEELCHAIR OFF COMMODE. VOID ONLY. MOD ASSIST OUT OF WHEELCHAIR INTO BED. BED LOW. ALARM ON. CALL LIGHT WITHIN REACH. WILL CONTINUE TO MONITOR.
--- NOTE | 2020-05-02 03:39 | NUR ---
PATIENT EYES CLOSED. RESPIRATIONS 18 & EVEN. BED LOW. ALARM ON. CALL LIGHT & BEDSIDE TABLE WITHIN REACH. WILL CONTINUE TO MONITOR.
--- NOTE | 2020-05-02 03:49 | NUR ---
PATIENT USED CALL LIGHT FOR ASSIST. PATIENT MOD ASSIST WITH IN & OUT OF BED & WHEELCHAIR. INDEPENDENT WITH CLEANING PERIAREA. VOID ONLY. RETURNED TO LOW BED. ALARM OON. CALL LIGHT WITHIN REACH. WILL COTNINUE TO MONITOR.
--- NOTE | 2020-05-02 04:12 | NUR ---
I have reviewed this patient and I concur with the Shift Assessment completed by the Licensed Practical Nurse today this shift.
[2020-05-02 08:18] VITALS: BP 120/703
--- NOTE | 2020-05-02 09:30 | NUR ---
SHE HAS BEEN IN THE GYM WORKING WITH THERAPY. SHE ATE A LITTLE THIS MORNING. THE CALL LIGHT IS WITHIN REACH AND THE BED ALARM IS ON. SHE HAS A DRESSING TO THE RIGHT HIP, CLEAN AND DRY, AND INTACT. SHE HAS A MEPILEX TO HER BOTTOM. HER LEFT GREAT TOE HAS A SMALL BLACK SPOT ON IT.
[2020-05-02 19:00] VITALS: BP 107/71
--- NOTE | 2020-05-02 19:41 | NUR ---
PATIENT RECEIVED SITTING UP IN BED. ASSESSMENT & VITAL SIGNS DONE. PATIENT TOILETED & HAD VOID ONLY. MOD ASSIST WITH TRANSFERS. BED LOW. CALL LIGHT & BEDSIDE TABLE WITHIN REACH. WILL CONTINUE TO MONITOR.
--- NOTE | 2020-05-02 21:12 | NUR ---
PATIENT USED CALL LIGHT FOR ASSIST. PATIENT MODERATE ASSIST IN & OUT OF BED & WHEELCHAIR. VOID ONLY. RETURNED TO LOW BED. ALARM ON. PATIENT SHOWN RED BUTTON PRACTICE DIRECTOR LIGHT. PATIENT LOOKED AT RED BUTTON & SAID "THIS IS THE ONE." THIS NURSE SAID "YES ALWAYS FIND ROUND TOP, THE RED BUTTON IS BELOW." PATIENT AGREED. BED LOW. CALL LIGHT WITHIN REACH. ALARM ON. WILL CONTINUE TO MONITOR.
--- NOTE | 2020-05-02 23:04 | NUR ---
PATIENT YELLING. THIS NURSE WENT TO ROOM. PATIENT WAS WANTING PAIN MEDICATION. PATIENT TOLD YOU CAN HAVE PAIN MEDICATION AT ONE. PATIENT CALL LIGHT GIVEN TO HER. PATIENT SHOWN TO USE THE RED BUTTON FOR HELP. PATIENT SHOWED THIS NURSE WHICH BUTTON, RED ONE. BED LOW. ALARM ON. CALL LIGHT WITHIN REACH. WILL CONTINUE TO MONITOR.
--- NOTE | 2020-05-03 00:16 | NUR ---
PATIENT YELLING FOR HELP. CALL LIGHT WITHIN REACH. PATIENT ASKED NOT TO YELL TO USE CALL LIGHT. BED LOW. ALARM ON. WILL CONTINUE TO MONITOR.
--- NOTE | 2020-05-03 03:28 | NUR ---
PATIENT USED CALL LIGHT FOR ASSIST. PATIENT MODERATE ASSIST IN & OUT OF WHEELCHAIR & BED. PAIN MEDICATION GIVEN 08/22 RIGHT HIP. PATIENT RETURNED TO LOW BED. ALARM ON. CALL LIGHT & BEDSIDE TABLE WITHIN REACH. WILL CONTINUE TO MONITOR.
[2020-05-03 08:48] VITALS: BP 99/59
--- NOTE | 2020-05-03 08:55 | NUR ---
SHE IS YELLING OUT THIS MORNING. ASKING FOR HER HUBAND. SAYING SHE WANTS TO EAT AND THEN NOT EATING WHEN FOOD IS HERE. SHE IS VERY CONFUSED. CALLING THE NURSING STAFF NAMES. SHE REFUSES TO GET OUT OF THE BED FOR BREAKFAST. SHE WILL NOT TURN UNLESS STAFF TURNS HER. SHE LET US PUT A PILLOW UNDER HER RIGHT HIP AND HER HEELS ARE BRIDGED. THE CALL LIGHT IS WITHIN REACH AND THE BED ALARM IS ON.
--- NOTE | 2020-05-03 09:51 | NUR ---
LEFT A VOICE MAIL WITH HER , ZAY. SHE IS WANTING A [employer]. SHE IS VERY CONFUSED THIS MORNING. SHE IS YELLING OUT FOR ZAY, SHE DOES NOT KNOW WHERE SHE IS. ONE MINUTE SHE SAYS SHE IS HUNGERY, THEN WHEN FOOD IS IN FRONT OF HER, SHE WILL NOT EAT. THE CALL LIGHT IS WITHIN REACH.
--- NOTE | 2020-05-03 10:45 | NUR ---
HELPED TO THE BATHROOM VIA WHEELCHAIR. HER COCCYX IS BLEEDING AND IS RED, APPLIED GOMEZ TO HER BOTTOM, TURNED HER TO THE LEFT SIDE. THE CALL LIGHT IS WITHIN REACH.
[2020-05-03 19:00] VITALS: BP 121/73
--- NOTE | 2020-05-03 19:29 | NUR ---
PATIENT RECEIVED SITTING UP IN BED. ASSESSMENT & VITAL SIGNS DONE. BED LOW. BEDSIDE TABLE & CALL LIGHT WITHIN REACH. WILL CONTINUE TO MONITOR.
--- NOTE | 2020-05-03 20:30 | NUR ---
PATIENT USED CALL LIGHT FOR ASSIST. PATIENT TOILETED & HAD VOID. MODERATE ASSIST INTO & OUT OF BED & WHEELCHAIR. RETURNED TO LOW BED.ALARM ON. CALL LIGHT & BEDSIDE TABLE WITHIN REACH.
--- NOTE | 2020-05-03 20:45 | NUR ---
PATIENT USED CALL LIGHT FOR ASSIST. MODERATE ASSIST INTO & OUT OF BED & WHEELCHAIR. VOID ONLY. RETURNED TO LOW BED. ALARM ON. CALL LIGHT WITHIN REACH. WILL CONTINUE TO MONITOR.
--- NOTE | 2020-05-04 01:25 | NUR ---
PATIENT USED CALL LIGHT FOR ASSIST. PATIENT MODERATE ASSIST INTO & OUT OF BED & WHEELCHAIR. PATIENT HAD BM & VOID. PATIENT RETURNED TO LOW BED. ALARM ON. CALL LIGHT & BEDSIDE TABLE WITHIN REACH. WILL CONTINUE TO MONITOR.
--- NOTE | 2020-05-04 01:34 | NUR ---
I have reviewed this patient and I concur with the Shift Assessment completed by the Licensed Practical Nurse today this shift.
--- NOTE | 2020-05-04 07:38 | NUR ---
PT RESTING IN BED WITH EYES OPEN CALL LIGHT IN REACH WILL MONITER
[2020-05-04 07:40] LABS: BASOPHILS 0.3 % (0-2); EOSINOPHILS 2.9 % (0-7); HEMATOCRIT 26.1 % (36.0-48.0); HEMOGLOBIN 8.3 g/dL (12-16); IMMATURE GRANULOCYTES 0.5 % (0-5); LYMPHOCYTE ABS# 1.53 10x3/uL (1.18-3.74); LYMPHOCYTES 26.2 % (15-50); MCH 29.4 pg (26.0-34.0); MCHC 31.8 g/dL (31.0-37.0); MCV 92.6 fL (80.0-100.0); MEAN PLATELET VOLUME 9.2 fL (7.4-10.4); MONOCYTES 7.9 % (2-11); NEUTROPHIL ABS# 3.62 10x3/uL (1.56-6.13); NEUTROPHILS 62.2 % (40-80); RBC 2.82 10x6/uL (4.00-5.40); RDW 21.4 % (11.5-14.5); WBC 5.8 10x3/uL (4.8-10.8)
[2020-05-04 07:44] LABS: CALC OSMOLALITY 274 mosm/kg (275-300); CALCIUM 7.7 mg/dL (8.5-10.1); CARBON DIOXIDE 24.1 mmol/L (21.0-32.0); CHLORIDE - SERUM 107 mmol/L (98-107); CREATININE - SERUM 0.7 mg/dL (0.6-1.3); GLUCOSE 85 mg/dL (74-106); POTASSIUM - SERUM 4.2 mmol/L (3.5-5.1); SODIUM 139 mmol/L (136-145); UREA NITROGEN 6 mg/dL (7-18); eGFR NON AFRICAN AMERICAN 88 mL/min (90-120)
[2020-05-04 07:46] LABS: PLATELET COUNT 183 10x3/uL (130-400)
[2020-05-04 07:47] VITALS: BP 115/63
--- NOTE | 2020-05-04 08:30 | NUR ---
PT REFUSES TO EAT BREAKFAST
--- NOTE | 2020-05-04 09:43 | NUR ---
Nutrition Re-Assessment Chart reviewed. Patient remains confused. MD added Bob. Diet: Regular PO intake: <5% average x last 9 meals Last BM: 05/03/20 Wt: 95# (04/28/20) Meds noted: vesta hirsch Labs reviewed. Skin: PUs to coccyx and right great toe Estimated nutrition needs and nutrition diagnosis remain unchanged from initial nutrition assessment at this time. Patient is not progressing towards meeting nutrition goals at this time. Recommendations/Interventions: -Recommend continue appetite stimulant. MD may consider transition to Megace ES as patient with very little PO intake and Megace ES may be more beneficial, as medically feasible. -Consider nutrition suppprt NGT vs PEG placement if PO intake remains poor. -Recommend twice weekly weights. -Will continue to provide Regular diet and honor food preferences. -RD will follow-up 05/08/20.
--- NOTE | 2020-05-04 10:00 | NUR ---
PT REFUSES BATH
--- NOTE | 2020-05-04 11:38 | NUR ---
I have reviewed this patient and I concur with the Shift Assessment completed by the Licensed Practical Nurse today this shift.
--- NOTE | 2020-05-04 12:15 | NUR ---
PT REFUSES LUNCH
--- NOTE | 2020-05-04 17:00 | NUR ---
PT REFUSES SUPPER
[2020-05-04 19:09] VITALS: BP 116/72
--- NOTE | 2020-05-04 20:00 | NUR ---
PATIENT IS CONFUSED. BED ALARM ON. CALL LIGHT WITHIN REACH. WILL CONTINUE WITH PLAN OF CARE.
--- NOTE | 2020-05-05 00:20 | NUR ---
PATIENT HELPED INTO BATHROOM. MODERATE ASST OF ONE FROM BED TO WHEELCHAIR AND WHEELCHAIR ONTO TOILET
--- NOTE | 2020-05-05 04:22 | NUR ---
PATIENT RESTING WELL. EYES CLOSED. CALL LIGHT WITHIN REACH. BED ALARM ON
--- NOTE | 2020-05-05 04:25 | RHP ---
PATIENT: EDWARD MURILLO MEDICAL RECORD: [id number] ACCOUNT: [id number] LOCATION:[id number] : 52 ADMISSION DATE: 04/27/20 REHABILITATION HISTORY AND PHYSICAL EXAMINATION POST ADMISSION PHYSICIAN EXAMINATION ADMITTING DIAGNOSIS: Right femoral neck fracture. HISTORY OF PRESENT ILLNESS: The patient is a 70-year-old female patient who was actually on hospice, got a history of hypothyroidism, coronary artery disease, hyperlipidemia, dementia, alcohol abuse, seizures. The patient apparently presented secondary to a right femoral neck fracture. She is status post right marcella-hip arthroplasty. The patient was admitted with some noted confusion upon admission, her significant memory loss and dementia made a history kind of somewhat unobtainable. She is currently postop day #4. She has got some electrolyte abnormalities, low albumin. The patient was in hospice care up to this point, but did present secondary to this hip fracture. The patient lives at home with her spouse. She was partially dependent at home on him. Her stated that he would like to return her back to [facility] when she leaves here. They need inpatient rehab to get her back to some point if they can actually take her home. She does have a walker, bedside commode, shower chair everything at home. She apparently was not walking much prior to this, but she could get up with some assistance. She is currently being monitored closely for lab values, cognition, medication adjustments, pain control, proximal muscle weakness, balance deficits and decreased range of motion, impaired mobility, dyspnea on exertion. She is a high fall risk and self-care deficits. These are all barriers to her discharge home at this time. COMORBIDITIES: Include alcohol abuse, anemia, bipolar disorder, coronary artery disease, COPD, gastroesophageal reflux disease, falls, dehydration, debility, hyperlipidemia, history of a seizure disorder. PAST MEDICAL HISTORY: Significant for multiple sclerosis, thyroid problems, got a history of ulcers, got a history of dementia, bipolar disorder, seizures, COPD, anemia, arthritis, chronic back pain. PAST SURGICAL HISTORY: Includes tonsillectomy and adenoidectomy. She has had hysterectomy, gallbladder. She has had coronary artery bypass grafting and stents. ALLERGIES: BEE VENOM. CURRENT MEDICATIONS: Include thiamine she is 100 mg daily, Lexapro 20 mg daily, enoxaparin 40 mg subq daily, vitamin D 2000 units daily, Protonix 40 mg b.i.d., Synthroid 25 mcg daily, Keppra 500 mg b.i.d., Colace 100 mg b.i.d., Klonopin 0.5 mg b.i.d., aspirin chewable 81 mg b.i.d., Hitterdal 5/325 one tab every 4 hours p.r.n., she is on formoterol 20 mcg b.i.d., Atrovent 0.5 mg q.i.d. p.r.n., she is on Zofran 4 mg every 6 hours p.r.n., Levsin 0.125 mg as needed and Tylenol p.r.n. HABITS: Does have a history of alcohol and tobacco use. FAMILY HISTORY: Noncontributory. SOCIAL HISTORY: The patient hopes to return back to hospice and get back to her HISTORY AND PHYSICAL [id number] EDWARD MURILLO prior level of functioning. OBJECTIVE: GENERAL: Does complain of some weakness and fatigue. HEENT: Denies cold, cough or congestion. CARDIOVASCULAR: Denies any chest pain. PHYSICAL EXAMINATION: VITAL SIGNS: Stable and afebrile. GENERAL: An elderly thin female in no acute distress upon exam. HEENT: Normocephalic and atraumatic. Mucosa moist. NECK: Supple. No lymphadenopathy. LUNGS: Clear in [place]. No wheeze or rales. HEART: Regular rate and rhythm. No murmurs, rubs or gallops. ABDOMEN: Soft, benign, nondistended. Positive bowel sounds times 4. EXTREMITIES: No clubbing, cyanosis or edema. Postoperative area looks pretty good. NEUROLOGIC: She has obviously got some dementia. She is slow to mentate. She does recognize me from previous hospitalizations. LABORATORY DATA: Her white count is 7.3, H&H of 9.5 and 29.9 and platelet count is 252. Sodium 141, potassium 3.3, BUN and creatinine of 7 and 0.8. Blood sugar was noted to be 78. ASSESSMENT: A 70-year-old female patient admitted to rehab with a working diagnosis of right femoral neck fracture. The patient has potential to make improvement. We instituted the following multidisciplinary therapies including, not limited to physical, occupational, respiratory, speech, nutritional services, prosthetics and orthotics. Given her complex medical condition and risks for more complications, rehabilitation services cannot be provided at a low level of care such as skilled nurse facility. PLAN: 1. Admit to [facility] for inpatient therapy to include the following disciplines; A. Physical therapy to improve gait, all transfer skills and bed mobility to a modified independent level. B. Occupational therapy to improve activities of daily living. C. Case management to help with discharge planning and placement options. D. Nutrition to assist with nutritional needs. E. Rehabilitation nursing to assist in monitoring the patient's underlying medical condition and to assess with any type of bowel or bladder management. 2. The patient's current medication and Medicare will be continued. 3. The patient will be placed on standard fall precautions. 4. The patient's estimated length of stay is approximately 7-10 days. 5. Discuss this patient during care team staff meeting tomorrow at noon, continuation of appropriate home medications and we will hopefully get her discharge back to hospice when she can get to a point that she needs assistance with getting up and getting around. TRANSINT:[id number] Voice Confirmation ID: [id number] DOCUMENT ID: [id number] ANA notes whether there has been none or any medical/functional change since admission: HISTORY AND PHYSICAL [id number] EDWARD MURILLO - No change since preadmission screen. ANA attests patient continues to be appropriate for IRF: - Continues to be appropriate. KAMILLA JEAN MD at 0425 CC: [id number] DICTATION DATE: 04/28/20 1231 FOOD STOREROOM CLERK: 04/28/20 1325 ADM IN [facility] [address] [id number]
--- NOTE | 2020-05-05 07:34 | NUR ---
PT RESTING IN BED WITH EYES OPEN CALL LIGHT IN REACH NO PROBLEMS WILL MONITER
[2020-05-05 07:55] VITALS: BP 94/65
--- NOTE | 2020-05-05 18:12 | NUR ---
PT RESTING IN BED WITH EYES OPEN CALL LIGHT IN REACH WILL MONITER
--- NOTE | 2020-05-05 19:35 | NUR ---
PT IN BED AWAKE, NO NEEDS NOTED OR VERBALIZED, H2O/CALL WITHIN REACH
[2020-05-05 20:00] VITALS: BP 121/78
[2020-05-06 07:08] LABS: BASOPHILS 0.2 % (0-2); EOSINOPHILS 1.6 % (0-7); HEMATOCRIT 25.6 % (36.0-48.0); HEMOGLOBIN 8.3 g/dL (12-16); IMMATURE GRANULOCYTES 0.5 % (0-5); LYMPHOCYTE ABS# 1.62 10x3/uL (1.18-3.74); LYMPHOCYTES 19.4 % (15-50); MCH 29.5 pg (26.0-34.0); MCHC 32.4 g/dL (31.0-37.0); MCV 91.1 fL (80.0-100.0); MEAN PLATELET VOLUME 8.3 fL (7.4-10.4); MONOCYTES 8.1 % (2-11); NEUTROPHIL ABS# 5.87 10x3/uL (1.56-6.13); NEUTROPHILS 70.2 % (40-80); RBC 2.81 10x6/uL (4.00-5.40); RDW 21.5 % (11.5-14.5); WBC 8.4 10x3/uL (4.8-10.8)
[2020-05-06 07:10] LABS: PLATELET COUNT 370 10x3/uL (130-400)
[2020-05-06 07:17] LABS: CALC OSMOLALITY 275 mosm/kg (275-300); CALCIUM 7.9 mg/dL (8.5-10.1); CARBON DIOXIDE 21.4 mmol/L (21.0-32.0); CHLORIDE - SERUM 108 mmol/L (98-107); CREATININE - SERUM 0.6 mg/dL (0.6-1.3); GLUCOSE 80 mg/dL (74-106); POTASSIUM - SERUM 4.1 mmol/L (3.5-5.1); SODIUM 139 mmol/L (136-145); UREA NITROGEN 10 mg/dL (7-18); eGFR NON AFRICAN AMERICAN > 90 mL/min (90-120)
[2020-05-06 07:41] VITALS: BP 113/72
--- NOTE | 2020-05-06 15:39 | NUR ---
CARE TEAM MEETING: SPOKE WITH AND HE WAS TO TALK WITH [facility] ABOUT THE HELP HE CAN GET WHEN PATIENT DISCHARGES. ORDERS HAVE BEEN FAXED TO [facility] AT [phone] FOR READMISSION TO THEIR SERVICE. WILL CONTINUE TO FOLLOW WITH PATIENT. HER DISCHARGE DATE IS 05/07/20.
[2020-05-06 20:03] VITALS: BP 119/70
--- NOTE | 2020-05-06 20:25 | NUR ---
AWAKE AND ALERT. RESPRIATIONS UNLABORED. YELLS OUT OVER AND OVER AND REFUSES TO USE CALL LIGHT. WANTED TO BE TURNED AND C/O HURTING. MEDICATED FOR PAIN. SEE MAR. CALL LIGHT IN REACH.
[2020-05-07] MEDS ORDERED: K-DUR20 MEQ PO (03:08)
--- NOTE | 2020-05-07 05:11 | NUR ---
RESTLESS HOURS. YELLED OUT OFTEN. SLEPT IN SHORT INTERVALS. NO ACUTE DISTRESS NOTED. ASSISTED TO BATHROOM AND BACK TO BED. CALL LIGHT IN REACH.
[2020-05-07 07:34] VITALS: BP 123/74
--- NOTE | 2020-05-07 08:51 | NUR ---
SHE IS YELLING, CRYING. SHE WANTS SOMETHING, THEN SHE CHANGES HER MIND ABOUT IT OR FORGETS. SHE IS DISCHARGING TODAY, SHE IS EXCITED ABOUT THAT. SHE IS ASKING ABOUT HER , ZAY. SHE IS USING THE WHEELCHAIR WITH HELP TO GET TO THE BATHROOM. THE CALL LIGHT IS WITHIN REACH AND THE BED ALARM IS ON.
--- NOTE | 2020-05-07 11:55 | NUR ---
PATIENT DISCHARGING HOME WITH FAMILY VIA AMBULANCE TRANSPORT. PATIENT WILL RESUME CARE WITH [facility]. GEO SIGNED, IMM SERVED AND EXPLIANED, ONE FILED IN CHART AND ONE SENT WITH PATIENT. PATIENT HAS ALL DME NEEDS MET AT THIS TIME. DR. WISE 05/11/20 @ 10:20. DC INSTRUCTIONS FAXED TO [facility] . NO COMPARE DATA REVIEWED. PATIENT WILL BE FOLLOWED BY HOSPICE PHYSICIAN. HAS BEEN NOTIFIED.
--- NOTE | 2020-05-07 14:21 | NUR ---
EMS HERE TO GET MRS. MURILLO, SHE IS GOING HOME. ZAY, HER IS AWARE OF HER RETURNING.
== END 2020-05-07 16:05 | disposition home health service (06) | DRG 559 ==
LOC: D.REHAB 17:16
PROVIDERS: ADMIT Emergency Medicine; ATTEND Emergency Medicine
DX: S72.001D Fracture of unspecified part of neck of right femur, subsequent encounter for closed fracture with routine healing (principal); E43 Unspecified severe protein-calorie malnutrition; Z68.1 Body mass index [BMI] 19.9 or less, adult; X58.XXXD Exposure to other specified factors, subsequent encounter; F10.10 Alcohol abuse, uncomplicated; D64.9 Anemia, unspecified; F31.9 Bipolar disorder, unspecified; I25.10 Atherosclerotic heart disease of native coronary artery without angina pectoris; J44.9 Chronic obstructive pulmonary disease, unspecified; K21.9 Gastro-esophageal reflux disease without esophagitis; E86.0 Dehydration; R53.81 Other malaise; E78.5 Hyperlipidemia, unspecified; E03.9 Hypothyroidism, unspecified; F03.90 Unspecified dementia, unspecified severity, without behavioral disturbance, psychotic disturbance, mood disturbance, and anxiety; G40.909 Epilepsy, unspecified, not intractable, without status epilepticus; G30.9 Alzheimer's disease, unspecified; F02.80 Dementia in other diseases classified elsewhere, unspecified severity, without behavioral disturbance, psychotic disturbance, mood disturbance, and anxiety; K44.9 Diaphragmatic hernia without obstruction or gangrene